=== PATIENT | male | born 1945 | race Caucasian/White ===

== ENCOUNTER 2016-08-07 07:48 | Outpatient (CLI) | payer MEDICARE | END 2016-08-07 07:49 | disposition home or self-care (01) | DX: I25.10 Atherosclerotic heart disease of native coronary artery without angina pectoris (principal); I10 Essential (primary) hypertension | CPT/HCPCS: 36415; 80053; G0103 ==

== ENCOUNTER 2016-10-01 09:13 | Day surgery (SDC) | payer MEDICARE ==
[2016-10-01] MEDS ORDERED: LACTATED RINGERS 1,000 ML IV ONE (09:36)
[2016-10-01] MEDS ORDERED: MIDAZOLAM 2 MG/2 ML VIAL IVP ONE (10:30)
[2016-10-01] MEDS ORDERED: fentaNYL 100 MCG/2 ML VIAL IVP ONE (10:30)
== END 2016-10-01 09:14 | disposition home or self-care (01) ==
PROC: 0DJD8ZZ Inspection of Lower Intestinal Tract, Via Natural or Artificial Opening Endoscopic (ICD-10-PCS; principal; 2016-10-01 10:15)
DX: Z12.11 Encounter for screening for malignant neoplasm of colon (principal); K64.4 Residual hemorrhoidal skin tags; K64.8 Other hemorrhoids; Z87.891 Personal history of nicotine dependence; Z88.5 Allergy status to narcotic agent; I25.10 Atherosclerotic heart disease of native coronary artery without angina pectoris; Z95.1 Presence of aortocoronary bypass graft; I25.2 Old myocardial infarction; I11.0 Hypertensive heart disease with heart failure; I50.9 Heart failure, unspecified; E78.5 Hyperlipidemia, unspecified; Z79.82 Long term (current) use of aspirin
CPT/HCPCS: G0121; J7120

== ENCOUNTER 2017-03-23 09:36 | Emergency (ER) | payer MEDICARE ==
[2017-03-23 09:58] VITALS: BP 123/71
--- NOTE | 2017-03-23 10:21 | XRAY Preliminary Report ---
Exam: XR Knee 3 View RT IMPRESSION: Moderate osteoarthritis. [facility] SITE ID: [id number]
--- NOTE | 2017-03-23 10:24 | XRAY Report ---
EXAM: RIGHT/LEFT KNEE RADIOGRAPHY EXAM DATE: 03/23/2017 10:14 AM. CLINICAL HISTORY: Right knee injury. COMPARISON: None. TECHNIQUE: 3 views. FINDINGS: Bones: Normal. No fractures or bone lesions. Joints: There is mild joint space narrowing in the lateral compartment. Moderate tricompartmental ost eophytes are seen. The patient is a mild knee effusion. Soft Tissues: Calcific enthesopathy is at the extensive mechanism. Arterial calcifications indicate a therosclerosis. IMPRESSION: Moderate osteoarthritis. [facility] Referring Provider Line: [phone] SITE ID: [id number]
--- NOTE | 2017-03-23 11:37 | ED Physician Documentation ---
PD HPI LOWER EXT INJURY - Stated complaint Stated Complaint: R KNEE PX - Chief complaint Chief Complaint: Ext Problem - History obtained from History obtained from: Patient, Family - History of Present Illness PD HPI LOW EXT INJURY LOCATION: Right, Knee Type of injury: Twist Where injury occurred: Home Timing - onset: Last night Timing - duration: Days (1) Timing - details: Abrupt onset, Still present Improved by: Rest, Immobilization Worsened by: Moving, Palpating Associated symptoms: Swelling. No: Weakness, Numbness, Tingling Contributing factors: No: Anticoagulated Similar symptoms before: Has not had sx before Recently seen: Not recently seen - Additional information Additional information: 71-year-old male was walking up the stairs had to step over the top of sleeping cat onto the stair above that and when he put his weight down on his leg he felt a pop and has had pain and a feeling of instability in the right knee since. Review of Systems Constitutional: denies: Fever Eyes: denies: Decreased vision Ears: denies: Ear pain Nose: denies: Congestion Throat: denies: Sore throat Cardiac: denies: Chest pain / pressure Respiratory: denies: Cough GI: denies: Vomiting : denies: Dysuria, Frequency Skin: denies: Rash Musculoskeletal: reports: Extremity pain, Joint pain, Pain with weight bearing. denies: Neck pain, Back pain, Extremity swelling, Joint swelling Neurologic: denies: Generalized weakness, Focal weakness, Numbness PD PAST MEDICAL HISTORY - Past Medical History Cardiovascular: Hypertension, High cholesterol Respiratory: None Endocrine/Autoimmune: None GI: None : None HEENT: None Psych: None Musculoskeletal: None Derm: None - Past Surgical History Cardiovascular: CABG HEENT: Other - Present Medications Home Medications: Ambulatory Orders Medication Instructions Recorded Confirmed Aspirin 0.5 tab PO DAILY 09/30/16 09/30/16 Atenolol/Chlorthalidone 1 each PO DAILY 09/30/16 10/01/16 [Atenolol-Chlorthal 50-25 Tb] Glucosamine Sulfate 500 mg PO DAILY 09/30/16 10/01/16 [place]-3/Dha/Epa/Fish Oil [Fish Oil 1 each PO DAILY 09/30/16 10/01/16 1,000 mg Softgel] Potassium Chloride [K-Dur] 20 meq PO DAILY 09/30/16 10/01/16 Rosuvastatin Calcium [Crestor] 10 mg PO DAILY 09/30/16 10/01/16 - Allergies Allergies/Adverse Reactions: Allergies Allergy/AdvReac Type Severity Reaction Status Date / Time codeine AdvReac Diaphoresis Verified 09/30/16 14:24 PD ED PE NORMAL - Vitals Vital signs reviewed: Yes (normal ) - General General: No acute distress, Well developed/nourished - HEENT HEENT: Atraumatic, PERRL - Respiratory Respiratory: No respiratory distress - Derm Derm: Normal color, Warm and dry, No rash - Extremities Extremities: No deformity, No edema, Other (There is mild pain along the lateral joint line of the right knee. There is no significant effusion. Knee rides through range of motion without much difficulty. There is opening of the lateral joint line to varus forces placed on the knee. This does not happen on the opposite knee.) - Neuro Neuro: No motor deficit, No sensory deficit - Psych Psych: Normal mood, Normal affect Results - Vitals Vitals: Vital Signs - 24 hr 03/23/17 09:57 Temperature 36.6 C Heart Rate 53 L Respiratory 16 Rate Blood Pressure 123/71 O2 Saturation 98 Oxygen O2 Source Room air - Rads (name of study) Right knee Radiology: Prelim report reviewed (Impression: Moderate osteoarthritis.), EMP read indepedently, See rad report Procedures - Splint (location) Right knee Splint applied by: Tech Type of splint: Other (Knee immobilizer) Other: Patient tolerated well, No complications, Neurovascular intact, Good alignment PD MEDICAL DECISION MAKING - ED course Complexity details: reviewed results, re-evaluated patient, considered differential, d/w patient, d/w family ED course: 71-year-old male with a right knee sprain appears to have torn right lateral collateral ligament. He is placed into a knee immobilizer and instructed to follow-up with orthopedics. Departure - Departure Disposition: 01 Home, Self Care Clinical Impression: Right knee sprain Qualifiers: Encounter type: initial encounter Involved ligament of knee: lateral collateral ligament Qualified Code(s): S83.421A - Sprain of lateral collateral ligament of right knee, initial encounter Condition: Stable Instructions: ED Sprain Knee Collateral Ligaments Follow-Up: Genaro Michael MD [Primary Care Provider] - [facility] [Provider Group]
== END 2017-03-23 11:52 | disposition home or self-care (01) ==
LOC: ED 09:36
DX: S83.421A Sprain of lateral collateral ligament of right knee, initial encounter (principal); X50.1XXA Overexertion from prolonged static or awkward postures, initial encounter; Y93.01 Activity, walking, marching and hiking; M17.11 Unilateral primary osteoarthritis, right knee; I10 Essential (primary) hypertension; E78.00 Pure hypercholesterolemia, unspecified; I25.10 Atherosclerotic heart disease of native coronary artery without angina pectoris; Z95.1 Presence of aortocoronary bypass graft; Z79.82 Long term (current) use of aspirin
CPT/HCPCS: 29530; 99283

== ENCOUNTER 2017-09-29 07:31 | Outpatient (CLI) | payer MEDICARE ==
[2017-09-29 08:14] LABS: ALBUMIN 4.2 g/dL (3.2-5.5); ALBUMIN/GLOBULIN RATIO 1.4 (1.0-2.2); ALKALINE PHOSPHATASE 58 IU/L (42-121); ALT ALANINE AMINOTRANSFERASE 19 IU/L (10-60); AST ASPARTATE AMINOTRANSFERASE 26 IU/L (10-42); BILIRUBIN,TOTAL 0.9 mg/dL (0.2-1.0); BUN - BLOOD UREA NITROGEN 24 mg/dL (6-20); CALCIUM 8.9 mg/dL (8.5-10.3); CARBON DIOXIDE - CO2 28 mmol/L (21-32); CHLORIDE 99 mmol/L (101-111); CHOL/HDL RATIO 4.9 (<5.0); CHOLESTEROL 152 mg/dL; CREATININE 1.1 mg/dL (0.6-1.2); GFR - MDRD 66 (>89); GLUCOSE 93 mg/dL (70-100); HDL CHOLESTEROL 31 mg/dL; LDL CHOLESTEROL,CALCULATED 47 mg/dL; LDL/HDL RATIO 1.5 (<3.6); SODIUM 135 mmol/L (135-145); TOTAL PROTEIN 7.1 g/dL (6.7-8.2); VLDL CHOLESTEROL 74 mg/dL
== END 2017-09-29 07:32 | disposition home or self-care (01) ==
LOC: LAB 07:31
PROVIDERS: ATTEND Internal Medicine
DX: I25.10 Atherosclerotic heart disease of native coronary artery without angina pectoris (principal); I10 Essential (primary) hypertension; E78.1 Pure hyperglyceridemia
CPT/HCPCS: 36415; 80053; 80061; G0103; 83721; 84153

== ENCOUNTER 2018-07-28 03:07 | Emergency (ER) | payer MEDICARE ==
[2018-07-28] MEDS ORDERED: ASPIRIN CHEW 81 MG TABLET PO STA (03:16)
[2018-07-28] MEDS ORDERED: NITROGLYCERIN SL 0.4 MG TABLET SL STA (03:25)
--- NOTE | 2018-07-28 03:27 | ED Physician Documentation ---
PD HPI CHEST PAIN - Stated complaint Stated Complaint: CHEST PAIN - Chief complaint Chief Complaint: Cardiac - Additional information Additional information: 72-year-old male presents the emergency department for evaluation of retrosternal chest pressure which radiated throughout his chest. The patient's symptoms lasted for roughly 2-1/2 hours and dissipated before arrival in the emergency department. Presently the patient has no active chest pain. There is no triggering factors and the pain resolved on its own. The patient does have a history of coronary artery disease and had a CABG 18 years ago. The pain that he experienced today is similar to what he experienced prior to the CABG. The patient currently does not follow with cardiology and is not had a stress test in over 10 years. No other associated symptoms. Review of Systems Constitutional: denies: Fever, Chills Eyes: denies: Discharge Ears: denies: Ear pain Nose: denies: Congestion Throat: denies: Sore throat Cardiac: reports: Chest pain / pressure Respiratory: denies: Cough GI: denies: Abdominal Pain : denies: Dysuria Skin: denies: Rash Musculoskeletal: denies: Neck pain Neurologic: denies: Generalized weakness Psychiatric: denies: Depressed Immunocompromised: denies: Chemotherapy PD PAST MEDICAL HISTORY - Past Medical History Cardiovascular: Hypertension, High cholesterol Respiratory: None Endocrine/Autoimmune: None GI: None : None HEENT: None Psych: None Musculoskeletal: None Derm: None - Past Surgical History Cardiovascular: CABG HEENT: Other - Present Medications Home Medications: Ambulatory Orders Medication Instructions Recorded Confirmed Aspirin 0.5 tab PO DAILY 09/30/16 09/30/16 Atenolol/Chlorthalidone 1 each PO DAILY 09/30/16 10/01/16 [Atenolol-Chlorthal 50-25 Tb] Glucosamine Sulfate 500 mg PO DAILY 09/30/16 10/01/16 [place]-3/Dha/Epa/Fish Oil [Fish Oil 1 each PO DAILY 09/30/16 10/01/16 1,000 mg Softgel] Potassium Chloride [K-Dur] 20 meq PO DAILY 09/30/16 10/01/16 Rosuvastatin Calcium [Crestor] 10 mg PO DAILY 09/30/16 10/01/16 - Allergies Allergies/Adverse Reactions: Allergies Allergy/AdvReac Type Severity Reaction Status Date / Time codeine AdvReac Diaphoresis Verified 07/28/18 03:18 - Social History Does the pt smoke?: No Smoking Status: Never smoker PD ED PE NORMAL - General General: Alert and oriented X 3, No acute distress - HEENT HEENT: Atraumatic, PERRL, EOMI, Ears normal - Neck Neck: Supple, no meningeal sign - Cardiac Cardiac: RRR, Strong equal pulses - Respiratory Respiratory: No respiratory distress, Clear bilaterally - Abdomen Abdomen: Soft, Non tender - Derm Derm: Normal color - Extremities Extremities: No deformity, No edema - Neuro Neuro: Alert and oriented X 3, Normal speech - Psych Psych: Normal affect Results - Vitals Vitals: Vital Signs - 24 hr 07/28/18 07/28/18 03:16 06:19 Temperature 36.5 C Heart Rate 55 L 40 L Respiratory 17 16 Rate Blood Pressure 196/97 H O2 Saturation 100 97 Oxygen O2 Source Room air - EKG (time done) 03:18 Rate: Rate (enter#) Rhythm: NSR Intervals: Normal CA, QRS normal Ischemia: Non specific changes Compare to prior EKG: Old EKG unavailable - Labs Labs: Laboratory Tests 07/28/18 07/28/18 07/28/18 03:20 03:20 03:20 WBC 12.2 H RBC 4.59 L Hgb 14.4 Hct 41.4 L MCV 90.2 MCH 31.4 H MCHC 34.9 RDW 12.7 Plt Count 180 MPV 8.8 Neut # (Auto) 8.5 H Lymph # (Auto) 2.2 [place] # (Auto) 1.1 H Eos # (Auto) 0.3 Baso # (Auto) 0.1 Absolute Nucleated RBC 0.00 Nucleated RBC % 0.0 D-Dimer Sodium 137 Potassium 3.4 L Chloride 104 Carbon Dioxide 24 Anion Gap 9.0 BUN 27 H Creatinine 1.2 Estimated GFR (MDRD) 60 L Glucose 106 H Calcium 8.9 Total Bilirubin 0.6 AST 23 ALT 18 Alkaline Phosphatase 67 Troponin I < 0.04 B-Natriuretic Peptide Total Protein 7.7 Albumin 4.2 Globulin 3.5 Albumin/Globulin Ratio 1.2 Lipase 51 07/28/18 07/28/18 03:20 03:20 WBC RBC Hgb Hct MCV MCH MCHC RDW Plt Count MPV Neut # (Auto) Lymph # (Auto) [place] # (Auto) Eos # (Auto) Baso # (Auto) Absolute Nucleated RBC Nucleated RBC % D-Dimer 223.6 Sodium Potassium Chloride Carbon Dioxide Anion Gap BUN Creatinine Estimated GFR (MDRD) Glucose Calcium Total Bilirubin AST ALT Alkaline Phosphatase Troponin I B-Natriuretic Peptide 204 H Total Protein Albumin Globulin Albumin/Globulin Ratio Lipase - Rads (name of study) CXR Radiology: Final report received, See rad report PD MEDICAL DECISION MAKING - ED course ED course: The patient is high risk, and the patient will require transfer for a chest pain rule out with provocative study. The patient is a [facility] patient and the [facility] transfer center was contacted and they will arrange for transfer for a chest pain rule out. The findings and plan were discussed the patient who understands and agrees to the plan. The patient has been chest pain-free since arriving the emergency department 7 AM the case was turned over to Dr. Olvera while the patient was pending transfer to a center that can perform a urgent provocative study Departure - Departure Disposition: 02 Transfer Acute Care Hosp Clinical Impression: Chest pain Qualifiers: Chest pain type: unspecified Qualified Code(s): R07.9 - Chest pain, unspecified CAD (coronary artery disease) Qualifiers: Coronary Disease-Associated Artery/Lesion type: [place] artery [place] vs. transplanted heart: apache heart Associated angina: with other forms of angina Qualified Code(s): I25.118 - Atherosclerotic heart disease of apache coronary artery with other forms of angina pectoris Condition: Fair
[2018-07-28 03:28] LABS: BASOPHILS # (AUTO) 0.1 10^3/uL (0.0-0.1); BASOPHILS % (AUTO) 0.5 %; EOSINOPHILS # (AUTO) 0.3 10^3/uL (0.0-0.7); EOSINOPHILS % (AUTO) 2.7 %; HGB - HEMOGLOBIN 14.4 g/dL (14.0-18.0); LYMPHOCYTES # (AUTO) 2.2 10^3/uL (1.5-3.5); LYMPHOCYTES % (AUTO) 17.8 %; MEAN CORPUSCULAR HEMOGLOBIN 31.4 pg (27.0-31.0); MEAN CORPUSCULAR HGB CONC 34.9 g/dL (32.0-36.0); MEAN CORPUSCULAR VOLUME 90.2 fL (80.0-94.0); MEAN PLATELET VOLUME 8.8 fL (7.4-11.4); MONOCYTES # (AUTO) 1.1 10^3/uL (0.0-1.0); MONOCYTES % (AUTO) 9.3 %; NEUTROPHILS # (AUTO) 8.5 10^3/uL (1.5-6.6); NEUTROPHILS % (AUTO) 69.7 %; PLT - PLATELET COUNT 180 10^3/uL (130-450); RED BLOOD COUNT 4.59 10^6/uL (4.70-6.10); RED CELL DISTRIBUTION WIDTH 12.7 % (12.0-15.0); WHITE BLOOD COUNT 12.2 x10^3/uL (4.8-10.8)
--- NOTE | 2018-07-28 03:39 | XRAY Report ---
Reason: cp Procedure Date: 07/28/2018 Accession Number: [id number] / [id number] Procedure: XR - Chest 2 View X-Ray CPT Code: 13842 FULL RESULT: EXAM: CHEST RADIOGRAPHY EXAM DATE: 07/28/2018 03:33 AM. CLINICAL HISTORY: Chest pain COMPARISON: None. TECHNIQUE: 2 views. FINDINGS: Lungs/Pleura: No focal opacities evident. No pleural effusion. No pneumothorax. Normal volumes. Mediastinum: Heart and mediastinal contours are unremarkable. Other: Previous heart surgery. IMPRESSION: No acute process seen in the chest. [facility]
[2018-07-28 03:40] LABS: ALBUMIN 4.2 g/dL (3.2-5.5); ALBUMIN/GLOBULIN RATIO 1.2 (1.0-2.2); BILIRUBIN,TOTAL 0.6 mg/dL (0.2-1.0); CALCIUM 8.9 mg/dL (8.5-10.3); CREATININE 1.2 mg/dL (0.6-1.2); TOTAL PROTEIN 7.7 g/dL (6.7-8.2)
[2018-07-28 08:49] VITALS: BP 170/84
== END 2018-07-28 08:55 | disposition short-term general hospital (02) ==
LOC: ED 03:07
DX: I25.118 Atherosclerotic heart disease of native coronary artery with other forms of angina pectoris (principal); R94.31 Abnormal electrocardiogram [ECG] [EKG]; Z95.1 Presence of aortocoronary bypass graft; I10 Essential (primary) hypertension; Z79.82 Long term (current) use of aspirin
CPT/HCPCS: 36415; 71046; 80053; 83690; 83880; 84484; 85025; 85379; 93005; 99284; A9270; 99285

== ENCOUNTER 2018-08-04 22:01 | Emergency (ER) | payer MEDICARE ==
--- NOTE | 2018-08-04 22:04 | ED Physician Documentation ---
PD HPI CHEST PAIN - Stated complaint Stated Complaint: RHB/CP - History obtained from History obtained from: Patient - History of Present Illness Timing - onset: Enter time (13:00), Today Timing - details: Abrupt onset Pain level max: 6 Pain level now: 2 Quality: Pain Location: Substernal, Left chest, Right chest Radiation: Other (does not radiate) Improved by: Nothing Worsened by: Other (no exacerbating factors) Associated symptoms: Palpitations. No: Shortness of air, Nausea, Vomiting Recently seen: Emergency Dept, Transferred - Additional information Additional information: presented to this ED 07/28/18 for chest pain and was transferred to [facility] where he underwent cardiac catheterization. Today at approximately 1 PM he had recurrence of chest pain shortly after finishing lunch. This was associated with rapid palpitations. the pain and palpitations improved but did not resolve, and both worsened after dinner tonight, approximately 6 PM. Review of Systems Constitutional: reports: Reviewed and negative Eyes: reports: Reviewed and negative Ears: reports: Reviewed and negative Nose: reports: Reviewed and negative Throat: reports: Reviewed and negative Cardiac: reports: Chest pain / pressure, Palpitations. denies: Pedal edema Respiratory: reports: Reviewed and negative GI: reports: Reviewed and negative : denies: Dysuria, Frequency Skin: reports: Reviewed and negative Musculoskeletal: reports: Reviewed and negative Neurologic: reports: Reviewed and negative PD PAST MEDICAL HISTORY - Past Medical History Cardiovascular: Hypertension, High cholesterol Respiratory: None Endocrine/Autoimmune: None GI: None : None HEENT: None Psych: None Musculoskeletal: None Derm: None - Past Surgical History Cardiovascular: CABG HEENT: Other - Present Medications Home Medications: Ambulatory Orders Medication Instructions Recorded Confirmed Aspirin 0.5 tab PO DAILY 09/30/16 08/04/18 [place]-3/Dha/Epa/Fish Oil [Fish Oil 1 each PO DAILY 09/30/16 08/04/18 1,000 mg Softgel] Potassium Chloride [K-Dur] 20 meq PO DAILY 09/30/16 08/04/18 Rosuvastatin Calcium [Crestor] 10 mg PO DAILY 09/30/16 08/04/18 Clopidogrel [Plavix] 1 tab PO DAILY 08/04/18 08/04/18 Metoprolol Tartrate [Lopressor] 1 tab PO DAILY 08/04/18 08/04/18 - Allergies Allergies/Adverse Reactions: Allergies Allergy/AdvReac Type Severity Reaction Status Date / Time codeine AdvReac Diaphoresis Verified 08/04/18 22:12 - Social History Does the pt smoke?: No Smoking Status: Never smoker PD ED PE NORMAL - Vitals Vital signs reviewed: Yes - General General: Alert and oriented X 3, No acute distress, Well developed/nourished - HEENT HEENT: Moist mucous membranes - Neck Neck: Supple, no meningeal sign - Cardiac Cardiac: No murmur, No gallop, No rub - Respiratory Respiratory: No respiratory distress, Clear bilaterally - Abdomen Abdomen: Soft, Non tender - Derm Derm: Normal color, Warm and dry - Extremities Extremities: No edema - Neuro Neuro: Alert and oriented X 3 PD ED PE EXPANDED - Cardiac Cardiac: Tachy, Regular Rhythm Results - Vitals Vitals: Vital Signs - 24 hr 08/04/18 08/04/18 08/04/18 22:05 22:07 23:54 Temperature 37.3 C Heart Rate 110 H 101 H 101 H Respiratory 16 16 17 Rate Blood Pressure 122/101 H 110/82 H 126/90 H O2 Saturation 95 94 93 08/05/18 08/05/18 00:43 02:12 Temperature Heart Rate 114 H 83 Respiratory 16 11 L Rate Blood Pressure 119/79 129/76 O2 Saturation 96 95 Oxygen O2 Source Room air - EKG (time done) No standard instances Rate: Rate (enter#) (113), Tachy Rhythm: Other (junctional) [place]: LAD, Anterior hemiblock QRS: LVH Ischemia: Normal ST segments, Q waves (V1, V2) Compare to prior EKG: Changed from prior EKG (previous EKG 2/5 sinus bradycardia) - Labs Labs: Laboratory Tests 08/04/18 08/04/18 08/04/18 22:20 22:20 22:20 WBC 14.7 H RBC 5.12 Hgb 15.8 Hct 46.1 MCV 90.1 MCH 31.0 MCHC 34.4 RDW 12.7 Plt Count 266 MPV 8.4 Neut # (Auto) 11.9 H Lymph # (Auto) 1.4 L [place] # (Auto) 1.2 H Eos # (Auto) 0.1 Baso # (Auto) 0.1 Absolute Nucleated RBC 0.02 Nucleated RBC % 0.1 D-Dimer Sodium 132 L Potassium 3.3 L Chloride 94 L Carbon Dioxide 25 Anion Gap 13.0 BUN 34 H Creatinine 1.3 H Estimated GFR (MDRD) 54 L Glucose 109 H Calcium 9.5 Total Bilirubin 0.9 AST 23 ALT 30 Alkaline Phosphatase 82 Troponin I 0.10 Total Protein 7.8 Albumin 4.3 Globulin 3.5 Albumin/Globulin Ratio 1.2 Lipase 74 H 08/04/18 22:20 WBC RBC Hgb Hct MCV MCH MCHC RDW Plt Count MPV Neut # (Auto) Lymph # (Auto) [place] # (Auto) Eos # (Auto) Baso # (Auto) Absolute Nucleated RBC Nucleated RBC % D-Dimer 287.2 H Sodium Potassium Chloride Carbon Dioxide Anion Gap BUN Creatinine Estimated GFR (MDRD) Glucose Calcium Total Bilirubin AST ALT Alkaline Phosphatase Troponin I Total Protein Albumin Globulin Albumin/Globulin Ratio Lipase PD MEDICAL DECISION MAKING - ED course Complexity details: reviewed old records, reviewed results, re-evaluated patient, considered differential, d/w patient ED course: After blood tests returned, patient continued to have narrow-complex tachycardia (100s-110s) on monitor without p waves s/o junctional tachycardia. I discussed the case with Dr. Parkinson (on-call cardiology at [facility]), who recommends transfer to [facility], hospitalist service and AM cardiology consult. I then d/w on-call for [facility], who subsequently called back to inform me that Dr. Hoang (hospitalist at [facility]) accepts patient for transfer. Departure - Departure Disposition: 02 Transfer Acute Care Hosp Clinical Impression: Junctional rhythm Chest pain Qualifiers: Chest pain type: unspecified Qualified Code(s): R07.9 - Chest pain, unspecified Condition: Stable Discharge Date/Time: 08/05/18 03:19
[2018-08-04 22:29] LABS: BASOPHILS # (AUTO) 0.1 10^3/uL (0.0-0.1); BASOPHILS % (AUTO) 0.4 %; EOSINOPHILS # (AUTO) 0.1 10^3/uL (0.0-0.7); EOSINOPHILS % (AUTO) 0.8 %; HGB - HEMOGLOBIN 15.8 g/dL (14.0-18.0); LYMPHOCYTES # (AUTO) 1.4 10^3/uL (1.5-3.5); LYMPHOCYTES % (AUTO) 9.4 %; MEAN CORPUSCULAR HGB CONC 34.4 g/dL (32.0-36.0); MEAN CORPUSCULAR VOLUME 90.1 fL (80.0-94.0); MEAN PLATELET VOLUME 8.4 fL (7.4-11.4); MONOCYTES # (AUTO) 1.2 10^3/uL (0.0-1.0); MONOCYTES % (AUTO) 8.3 %; NEUTROPHILS # (AUTO) 11.9 10^3/uL (1.5-6.6); NEUTROPHILS % (AUTO) 81.1 %; PLT - PLATELET COUNT 266 10^3/uL (130-450); RED BLOOD COUNT 5.12 10^6/uL (4.70-6.10); RED CELL DISTRIBUTION WIDTH 12.7 % (12.0-15.0); WHITE BLOOD COUNT 14.7 x10^3/uL (4.8-10.8)
[2018-08-04 22:46] LABS: ALBUMIN 4.3 g/dL (3.2-5.5); ALBUMIN/GLOBULIN RATIO 1.2 (1.0-2.2); BILIRUBIN,TOTAL 0.9 mg/dL (0.2-1.0); CALCIUM 9.5 mg/dL (8.5-10.3); CREATININE 1.3 mg/dL (0.6-1.2); TOTAL PROTEIN 7.8 g/dL (6.7-8.2)
[2018-08-05 02:13] VITALS: BP 129/76
== END 2018-08-05 03:19 | disposition short-term general hospital (02) ==
LOC: ED 22:01
DX: R07.9 Chest pain, unspecified (principal); I47.1 Supraventricular tachycardia; I10 Essential (primary) hypertension; Z95.1 Presence of aortocoronary bypass graft
CPT/HCPCS: 36415; 80053; 83690; 84484; 85025; 85379; 93005; 99284; 99285

== ENCOUNTER 2018-08-26 11:34 | Emergency (ER) | payer MEDICARE ==
[2018-08-26] MEDS ORDERED: predniSONE 20 MG TABLET PO STA (12:36)
--- NOTE | 2018-08-26 12:37 | ED Physician Documentation ---
PD HPI SKIN - Stated complaint Stated Complaint: POSS ALLERGIC REACTION - Chief complaint Chief Complaint: Wound - History obtained from History obtained from: Patient - History of Present Illness Timing - onset: Yesterday (73-year-old gentleman who had an anginal scare last month. Sounds like he had a clean cath.He was sent home on a lot of new medications, Friday he was put on prednisone for some thumb pain. Subsequent to that stopping he developed a body wide itchy rash with a little bit of thick tongue. It is mostly better now but a little persistent.) Review of Systems Constitutional: reports: Reviewed and negative Cardiac: reports: Reviewed and negative Respiratory: reports: Reviewed and negative PD PAST MEDICAL HISTORY - Past Medical History Cardiovascular: Hypertension, High cholesterol Respiratory: None Endocrine/Autoimmune: None GI: None : None HEENT: None Psych: None Musculoskeletal: None Derm: None - Past Surgical History Past Surgical History: Yes Cardiovascular: CABG HEENT: Other - Present Medications Home Medications: Ambulatory Orders Medication Instructions Recorded Confirmed Aspirin 0.5 tab PO DAILY 09/30/16 08/26/18 [place]-3/Dha/Epa/Fish Oil [Fish Oil 1 each PO DAILY 09/30/16 08/26/18 1,000 mg Softgel] Potassium Chloride [K-Dur] 20 meq PO DAILY 09/30/16 08/26/18 Rosuvastatin Calcium [Crestor] 10 mg PO DAILY 09/30/16 08/26/18 Clopidogrel [Plavix] 1 tab PO DAILY 08/04/18 08/26/18 Metoprolol Tartrate [Lopressor] 1 tab PO DAILY 08/04/18 08/26/18 Amlodipine Besylate [Norvasc] 10 mg PO 08/26/18 Chlorthalidone 25 mg PO DAILY 08/26/18 08/26/18 Isosorbide Mononitrate ER [Imdur] 30 mg PO DAILY 08/26/18 08/26/18 predniSONE [Deltasone] 40 mg PO DAILY 5 Days tablet 08/26/18 - Allergies Allergies/Adverse Reactions: Allergies Allergy/AdvReac Type Severity Reaction Status Date / Time hydralazine Allergy Itching Verified 08/26/18 11:49 quinapril [From Accupril] Allergy Itching Verified 08/26/18 11:48 codeine AdvReac Diaphoresis Verified 08/26/18 11:48 - Social History Does the pt smoke?: No Smoking Status: Never smoker Does the pt drink ETOH?: Yes Does the pt have substance abuse?: No - Immunizations Immunizations are current?: Yes - POLST Patient has POLST: No PD ED PE NORMAL - Vitals Vital signs reviewed: Yes - HEENT HEENT: Pharynx benign - Respiratory Respiratory: No respiratory distress, Clear bilaterally - Abdomen Abdomen: Non tender - Derm Derm: Other (Mild hives left lower quadrant abdominal wall and right axilla) - Neuro Neuro: Alert and oriented X 3, Normal speech Results - Vitals Vitals: Vital Signs - 24 hr 08/26/18 11:43 Temperature 35.6 C L Heart Rate 78 Respiratory 14 Rate Blood Pressure 148/100 H O2 Saturation 96 Oxygen O2 Source Room air PD MEDICAL DECISION MAKING - ED course ED course: We went through all of his medications with an eye to what might not be necessary, and what is new. He is going to stop vitamin B12, red yeast rice and fish oil. Of the other new medications culprits might be Plavix or chlorthalidone. He will trial some prednisone and if the rash comes back he will discussed the importance of these with his check cashier. Departure - Departure Disposition: 01 Home, Self Care Clinical Impression: Hives Condition: Good Record reviewed to determine appropriate education?: Yes Instructions: Urticaria Prescriptions: predniSONE [Deltasone] 40 mg PO DAILY 5 Days tablet Comments: As discussed for now I would stop the red yeast rice, fish oil, and vitamin B12. If the rash comes back after prednisone discuss your medications with your check cashier, other culprits might include the chlorthalidone or Plavix.
[2018-08-26 12:50] VITALS: BP 164/82
== END 2018-08-26 12:45 | disposition home or self-care (01) ==
LOC: ED 11:34
DX: L50.9 Urticaria, unspecified (principal); I10 Essential (primary) hypertension
CPT/HCPCS: 99283

== ENCOUNTER 2018-10-05 11:02 | Outpatient (CLI) | payer MEDICARE | END 2018-10-05 11:03 | disposition home or self-care (01) | LOC: SC 11:02 | PROVIDERS: ATTEND Internal Medicine Pulmonary Disease | DX: G47.10 Hypersomnia, unspecified (principal); R41.89 Other symptoms and signs involving cognitive functions and awareness; G47.8 Other sleep disorders; R06.83 Snoring | CPT/HCPCS: 99203; G0463; 99212 ==

== ENCOUNTER 2018-10-19 20:54 | Outpatient (CLI) | payer MEDICARE | END 2018-10-19 20:55 | disposition home or self-care (01) | LOC: SC 20:54 | PROVIDERS: ATTEND Internal Medicine Pulmonary Disease | DX: G47.33 Obstructive sleep apnea (adult) (pediatric) (principal); I49.9 Cardiac arrhythmia, unspecified | CPT/HCPCS: 95810 ==

== ENCOUNTER 2018-11-04 08:52 | Outpatient (CLI) | payer MEDICARE | END 2018-11-04 08:53 | disposition home or self-care (01) | LOC: SC 08:52 | PROVIDERS: ATTEND Nurse Practitioner Family | DX: G47.33 Obstructive sleep apnea (adult) (pediatric) (principal); I49.8 Other specified cardiac arrhythmias | CPT/HCPCS: 99214; G0463; 99212 ==

== ENCOUNTER 2019-02-01 07:00 | Outpatient (CLI) | payer MEDICARE ==
[2019-02-01 07:22] LABS: BASOPHILS % (AUTO) 0.4 %; EOSINOPHILS # (AUTO) 0.4 10^3/uL (0.0-0.7); EOSINOPHILS % (AUTO) 5.3 %; HGB - HEMOGLOBIN 14.1 g/dL (14.0-18.0); LYMPHOCYTES # (AUTO) 1.6 10^3/uL (1.5-3.5); LYMPHOCYTES % (AUTO) 21.1 %; MEAN CORPUSCULAR HEMOGLOBIN 31.1 pg (27.0-31.0); MEAN CORPUSCULAR HGB CONC 34.9 g/dL (32.0-36.0); MEAN CORPUSCULAR VOLUME 89.2 fL (80.0-94.0); MEAN PLATELET VOLUME 10.1 fL (7.4-11.4); MONOCYTES # (AUTO) 0.9 10^3/uL (0.0-1.0); MONOCYTES % (AUTO) 11.3 %; NEUTROPHILS # (AUTO) 4.7 10^3/uL (1.5-6.6); NEUTROPHILS % (AUTO) 61.6 %; PLT - PLATELET COUNT 194 10^3/uL (130-450); RED BLOOD COUNT 4.53 10^6/uL (4.70-6.10); RED CELL DISTRIBUTION WIDTH 12.7 % (12.0-15.0); WHITE BLOOD COUNT 7.5 x10^3/uL (4.8-10.8)
[2019-02-01 08:11] LABS: ALBUMIN 4.5 g/dL (3.2-5.5); ALBUMIN/GLOBULIN RATIO 1.6 (1.0-2.2); ALKALINE PHOSPHATASE 64 IU/L (42-121); ALT ALANINE AMINOTRANSFERASE 20 IU/L (10-60); AST ASPARTATE AMINOTRANSFERASE 25 IU/L (10-42); BILIRUBIN,TOTAL 0.8 mg/dL (0.2-1.0); BUN - BLOOD UREA NITROGEN 39 mg/dL (6-20); CALCIUM 9.5 mg/dL (8.5-10.3); CARBON DIOXIDE - CO2 24 mmol/L (21-32); CHLORIDE 104 mmol/L (101-111); CHOL/HDL RATIO 2.9 (<5.0); CHOLESTEROL 117 mg/dL; CREATININE 1.2 mg/dL (0.6-1.2); GFR - MDRD 60 (>89); GLUCOSE 98 mg/dL (70-100); HDL CHOLESTEROL 41 mg/dL; LDL CHOLESTEROL,CALCULATED 57 mg/dL; LDL CHOLESTEROL,DIRECT 55 mg/dL; LDL/HDL RATIO 1.4 (<3.6); SODIUM 139 mmol/L (135-145); TOTAL PROTEIN 7.4 g/dL (6.7-8.2); VLDL CHOLESTEROL 19 mg/dL
== END 2019-02-01 07:01 | disposition home or self-care (01) ==
LOC: LAB 07:00
PROVIDERS: ATTEND Internal Medicine Cardiovascular Disease
DX: E78.1 Pure hyperglyceridemia (principal); I10 Essential (primary) hypertension; I25.10 Atherosclerotic heart disease of native coronary artery without angina pectoris
CPT/HCPCS: 36415; 80053; 80061; 83721; 85025

== ENCOUNTER 2019-04-07 07:44 | Outpatient (CLI) | payer MEDICARE ==
[2019-04-07 08:23] LABS: CALCIUM 9.4 mg/dL (8.5-10.3); CREATININE 1.4 mg/dL (0.6-1.2)
== END 2019-04-07 07:45 | disposition home or self-care (01) ==
LOC: LAB 07:44
PROVIDERS: ATTEND Internal Medicine Cardiovascular Disease
DX: I10 Essential (primary) hypertension (principal)
CPT/HCPCS: 36415; 80048

== ENCOUNTER 2020-02-09 23:41 | Outpatient (CLI) | payer MEDICARE | END 2020-02-09 23:42 | disposition critical access hospital (66) | LOC: EMS 23:41 | PROVIDERS: ATTEND Surgery | DX: R10.10 Upper abdominal pain, unspecified (principal) | CPT/HCPCS: A0425; A0429 ==

== ENCOUNTER 2020-09-07 08:14 | Outpatient (CLI) | payer MEDICARE ==
[2020-09-07 08:31] LABS: BASOPHILS # (AUTO) 0.1 10^3/uL (0.0-0.1); BASOPHILS % (AUTO) 0.8 %; EOSINOPHILS # (AUTO) 0.4 10^3/uL (0.0-0.7); EOSINOPHILS % (AUTO) 4.9 %; HCT - HEMATOCRIT 42.6 % (42.0-52.0); HGB - HEMOGLOBIN 14.5 g/dL (14.0-18.0); LYMPHOCYTES # (AUTO) 2.4 10^3/uL (1.5-3.5); LYMPHOCYTES % (AUTO) 27.3 %; MEAN CORPUSCULAR HEMOGLOBIN 30.9 pg (27.0-31.0); MEAN CORPUSCULAR VOLUME 90.8 fL (80.0-94.0); MEAN PLATELET VOLUME 10.1 fL (7.4-11.4); MONOCYTES # (AUTO) 0.9 10^3/uL (0.0-1.0); MONOCYTES % (AUTO) 9.9 %; NEUTROPHILS # (AUTO) 4.9 10^3/uL (1.5-6.6); NEUTROPHILS % (AUTO) 56.9 %; PLT - PLATELET COUNT 222 10^3/uL (130-450); RED BLOOD COUNT 4.69 10^6/uL (4.70-6.10); RED CELL DISTRIBUTION WIDTH 12.5 % (12.0-15.0); WHITE BLOOD COUNT 8.6 x10^3/uL (4.8-10.8)
[2020-09-07 08:49] LABS: BUN - BLOOD UREA NITROGEN 34 mg/dL (6-20); CALCIUM 9.5 mg/dL (8.5-10.3); CARBON DIOXIDE - CO2 25 mmol/L (21-32); CHLORIDE 100 mmol/L (101-111); CHOLESTEROL 131 mg/dL; CREATININE 1.4 mg/dL (0.6-1.2); GFR - MDRD 50 (>89); GLUCOSE 95 mg/dL (70-100); HDL CHOLESTEROL 43 mg/dL; LDL CHOLESTEROL,CALCULATED 53 mg/dL; LDL/HDL RATIO 1.2 (<3.6); POTASSIUM 3.6 mmol/L (3.5-5.0); SODIUM 137 mmol/L (135-145); TRIGLYCERIDES 173 mg/dL; VLDL CHOLESTEROL 35 mg/dL
== END 2020-09-07 08:15 | disposition home or self-care (01) ==
LOC: LAB 08:14
PROVIDERS: ATTEND Internal Medicine Cardiovascular Disease
DX: I25.10 Atherosclerotic heart disease of native coronary artery without angina pectoris (principal); I10 Essential (primary) hypertension
CPT/HCPCS: 36415; 80048; 80061; 83721; 85025

== ENCOUNTER 2021-11-02 08:00 | Outpatient (CLI) | payer MEDICARE ==
[2021-11-02 08:16] LABS: BASOPHILS % (AUTO) 0.2 %; EOSINOPHILS # (AUTO) 0.1 10^3/uL (0.0-0.7); EOSINOPHILS % (AUTO) 0.7 %; HCT - HEMATOCRIT 43.5 % (42.0-52.0); HGB - HEMOGLOBIN 14.6 g/dL (14.0-18.0); LYMPHOCYTES # (AUTO) 2.2 10^3/uL (1.5-3.5); LYMPHOCYTES % (AUTO) 15.6 %; MEAN CORPUSCULAR HEMOGLOBIN 32.3 pg (27.0-31.0); MEAN CORPUSCULAR HGB CONC 33.6 g/dL (32.0-36.0); MEAN CORPUSCULAR VOLUME 96.2 fL (80.0-94.0); MEAN PLATELET VOLUME 9.6 fL (7.4-11.4); MONOCYTES # (AUTO) 1.1 10^3/uL (0.0-1.0); MONOCYTES % (AUTO) 7.8 %; NEUTROPHILS # (AUTO) 10.5 10^3/uL (1.5-6.6); NEUTROPHILS % (AUTO) 75.2 %; PLT - PLATELET COUNT 197 10^3/uL (130-450); RED BLOOD COUNT 4.52 10^6/uL (4.70-6.10); RED CELL DISTRIBUTION WIDTH 12.6 % (12.0-15.0); WHITE BLOOD COUNT 13.9 x10^3/uL (4.8-10.8)
[2021-11-02 08:34] LABS: BUN - BLOOD UREA NITROGEN 26 mg/dL (6-20); CALCIUM 9.1 mg/dL (8.5-10.3); CARBON DIOXIDE - CO2 27 mmol/L (21-32); CHLORIDE 101 mmol/L (101-111); CHOL/HDL RATIO 2.4 (<5.0); CHOLESTEROL 166 mg/dL; CREATININE 1.3 mg/dL (0.6-1.2); GFR - MDRD 54 (>89); GLUCOSE 82 mg/dL (70-100); HDL CHOLESTEROL 70 mg/dL; LDL CHOLESTEROL,CALCULATED 59 mg/dL; LDL/HDL RATIO 0.8 (<3.6); POTASSIUM 3.4 mmol/L (3.5-5.0); SODIUM 139 mmol/L (135-145); TRIGLYCERIDES 185 mg/dL; VLDL CHOLESTEROL 37 mg/dL
== END 2021-11-02 08:01 | disposition home or self-care (01) ==
LOC: LAB 08:00
PROVIDERS: ATTEND Internal Medicine Cardiovascular Disease
DX: I10 Essential (primary) hypertension (principal); E78.5 Hyperlipidemia, unspecified
CPT/HCPCS: 36415; 80048; 80061; 83721; 85025

== ENCOUNTER 2022-04-09 04:37 | Emergency (ER) | payer MEDICARE ==
--- OUTSIDE RECORDS SUMMARY | 2022-04-09 05:07 | EXTERNAL MEDICAL SUMMARY RPT | Continuity of Care Document ---
:1945 Author Organization [facility] Address [address] [place] [address] Phone Allergies No information. Encounters No information. Functional Status No information. Immunizations No information. Medications No information. Problems No information. Procedures No information. Results/Labs test date author facility value unit interpret ation Result panel 1 (unknown) (no (unknown) (unknown) (no value) (units (unk nown) date) unknown) (unknown) (no (unknown) (unknown) [place] [address] (unit s (unknown) date) unknown) (unknown) (no (unknown) (unknown) Constricted throat. (unit s (unknown) date) unknown) (unknown) (no (unknown) (unknown) Draft (units (unkno wn) date) unknown) (unknown) (no (unknown) (unknown) [facility] (units (unknown[facility] date[facility] unknown) (unknown) (no (unknown) (unknown) Internal Medicine (units (unknown) date) Office Visit unknown) (unknown) (no (unknown) (unknown) chills (units (unkno wn) date) unknown) (unknown) (no (unknown) (unknown) flushing (units (unkno wn) date) unknown) (unknown) (no (unknown) (unknown) (no value) (units (unk nown) date) unknown) (unknown) (no (unknown) (unknown) [id number] (units (unkno wn) date) unknown) (unknown) (no (unknown) (unknown) 01/29/22 (units (unkno wn) date) unknown) (unknown) (no (unknown) (unknown) 11:18) (units (unkno wn) date) unknown) (unknown) (no (unknown) (unknown) Age/Sex: 76 / M Date (uni ts (unknown) date) of Service: unknown) (unknown) (no (unknown) (unknown) Allergies (units (unkn own) date) unknown) (unknown) (no (unknown) (unknown) Attending Dr: Genaro Groves (uni ts (unknown) date) Fernanda MARSHALL unknown) (unknown) (no (unknown) (unknown) Coronary artery (units (unknown) date) disease unknown) (unknown) (no (unknown) (unknown) : 1945 (units (unknown) date) Acct:[id number] unknown) (unknown) (no (unknown) (unknown) Dept at (units (unkno wn) date) . unknown) (unknown) (no (unknown) (unknown) Documented By: (units (unknown) date) Genaro Michael MD unknown) 01/29/22 1132 (unknown) (no (unknown) (unknown) Essential (units (unkn own) date) hypertension unknown) (unknown) (no (unknown) (unknown) Hypertriglyceridemia (uni ts (unknown) date) unknown) (unknown) (no (unknown) (unknown) Intake (units (unkno wn) date) unknown) (unknown) (no (unknown) (unknown) Intake Note: (units (u nknown) date) unknown) (unknown) (no (unknown) (unknown) Intake performed by: (uni ts (unknown) date) Harika Good unknown) (unknown) (no (unknown) (unknown) Intake- Clincial (units (unknown) date) Staff unknown) (unknown) (no (unknown) (unknown) Left hydrocele (units (unknown) date) unknown) (unknown) (no (unknown) (unknown) Loc: [facility] (units (unkno wn) date) unknown) (unknown) (no (unknown) (unknown) Male circumcision (units (unknown) date) unknown) (unknown) (no (unknown) (unknown) Medical History (units (unknown) date) (Updated 11/15/21 @ unknown) 08:51 by Dylan Ayala MD) (unknown) (no (unknown) (unknown) PFSH (units (unkno wn) date) unknown) (unknown) (no (unknown) (unknown) Patient: (units (unkno wn) date) Evgeny Moore MR#: unknown) M0 (unknown) (no (unknown) (unknown) Prednisone decreased (uni ts (unknown) date) at last visit. unknown) (unknown) (no (unknown) (unknown) Reason For Visit (units (unknown) date) unknown) (unknown) (no (unknown) (unknown) Recheck PMR (units (un known) date) unknown) (unknown) (no (unknown) (unknown) Review/Discuss. 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 unknown) (unknown) (no (unknown) (unknown) Surgical History (units (unknown) date) (Reviewed 11/15/21 @ unknown) 08:39 by Dylan Ayala MD) (unknown) (no (unknown) (unknown) This note may have (units (unknown) date) been all or partially unknown) generated using voice recognition (unknown) (no (unknown) (unknown) Tobacco + Substance (unit s (unknown) date) Use unknown) (unknown) (no (unknown) (unknown) Tobacco Status (units (unknown) date) unknown) (unknown) (no (unknown) (unknown) Visit Reasons: (units (unknown) date) Recheck PMR 08 unknown) (unknown) (no (unknown) (unknown) codeine [CODEINE] (units (unknown) date) Allergy (Mild, unknown) Verified 11/30/21 11:18) (unknown) (no (unknown) (unknown) have occurred. If (units (unknown) date) there are any unknown) questions, please contact the Medical Records (unknown) (no (unknown) (unknown) hydralazine Adverse (unit s (unknown) date) Reaction (Severe, unknown) Verified 11/30/21 11:18) (unknown) (no (unknown) (unknown) marital status: (units (unknown) date) unknown) (unknown) (no (unknown) (unknown) may occur. Occasional (un its (unknown) date) wrong-word or unknown) 'sound-alike' substitutions may have (unknown) (no (unknown) (unknown) minoxidil Adverse (units (unknown) date) Reaction (Severe, unknown) Verified 11/30/21 11:18) (unknown) (no (unknown) (unknown) number of children: 2 (un its (unknown) date) unknown) (unknown) (no (unknown) (unknown) occurred due to the (unit s (unknown) date) inherent limitations unknown) of voice recognition software. Please (unknown) (no (unknown) (unknown) quinapril [From (units (unknown) date) Accupril] Adverse unknown) Reaction (Intermediate, Verified 11/30/21 (unknown) (no (unknown) (unknown) read the note (units ( unknown) date) carefully and unknown) recognize, using context, where these substitutions (unknown) (no (unknown) (unknown) software. Although (units (unknown) date) every effort is made unknown) to edit content, spareribs trimmer errors Result panel 2 (unknown) (no (unknown) (unknown) (no value) (units (unk nown) date) unknown) (unknown) (no (unknown) (unknown) [place] [address] (unit s (unknown) date) unknown) (unknown) (no (unknown) (unknown) Constricted throat. (unit s (unknown) date) unknown) (unknown) (no (unknown) (unknown) Draft (units (unkno wn) date) unknown) (unknown) (no (unknown) (unknown) [facility] ([facility] date[facility] unknown) (unknown) (no (unknown) (unknown) Internal Medicine (units (unknown) date) Office Visit unknown) (unknown) (no (unknown) (unknown) chills (units (unkno wn) date) unknown) (unknown) (no (unknown) (unknown) flushing (units (unkno wn) date) unknown) (unknown) (no (unknown) (unknown) (no value) (units (unk nown) date) unknown) (unknown) (no (unknown) (unknown) [id number] (units (unkno wn) date) unknown) (unknown) (no (unknown) (unknown) 01/29/22 (units (unkno wn) date) unknown) (unknown) (no (unknown) (unknown) 01/29/22] (units (unkn own) date) unknown) (unknown) (no (unknown) (unknown) 11:37) (units (unkno wn) date) unknown) (unknown) (no (unknown) (unknown) 2-3 weeks left to go (uni ts (unknown) date) but states that he can unknown ) sure feel a difference. (unknown) (no (unknown) (unknown) A little edema around (un its (unknown) date) ankles. unknown) (unknown) (no (unknown) (unknown) Age/Sex: 76 / M Date (uni ts (unknown) date) of Service: unknown) (unknown) (no (unknown) (unknown) Allergies (units (unkn own) date) unknown) (unknown) (no (unknown) (unknown) Attending Dr: Genaro Groves (uni ts (unknown) date) Fernanda MARSHALL unknown) (unknown) (no (unknown) (unknown) Coronary artery (units (unknown) date) disease unknown) (unknown) (no (unknown) (unknown) : 1945 (units (unknown) date) Acct:[id number] unknown) (unknown) (no (unknown) (unknown) Dept at (units (unkno wn) date) . unknown) (unknown) (no (unknown) (unknown) Discuss Neuropathy (units (unknown) date) unknown) (unknown) (no (unknown) (unknown) Documented By: (units (unknown) date) Genaro Michael MD unknown) 01/29/22 1132 (unknown) (no (unknown) (unknown) Essential (units (unkn own) date) hypertension unknown) (unknown) (no (unknown) (unknown) Hypertriglyceridemia (uni ts (unknown) date) unknown) (unknown) (no (unknown) (unknown) Intake (units (unkno wn) date) unknown) (unknown) (no (unknown) (unknown) Intake Note: (units (u nknown) date) unknown) (unknown) (no (unknown) (unknown) Intake performed by: (uni ts (unknown) date) Harika Good unknown) (unknown) (no (unknown) (unknown) Intake- Clincial (units (unknown) date) Staff unknown) (unknown) (no (unknown) (unknown) Left hydrocele (units (unknown) date) unknown) (unknown) (no (unknown) (unknown) Legs feel like (units (unknown) date) they're 10 lbs each unknown) day. (unknown) (no (unknown) (unknown) Loc: [facility] (units (unkno wn) date) unknown) (unknown) (no (unknown) (unknown) Male circumcision (units (unknown) date) unknown) (unknown) (no (unknown) (unknown) Medical History (units (unknown) date) (Updated 11/15/21 @ unknown) 08:51 by Dylan Ayala MD) (unknown) (no (unknown) (unknown) Medications (units (un known) date) unknown) (unknown) (no (unknown) (unknown) PFSH (units (unkno wn) date) unknown) (unknown) (no (unknown) (unknown) Patient at alternate (uni ts (unknown) date) 5 and 10s mg of unknown) Prednisone. (unknown) (no (unknown) (unknown) Patient: (units (unkno wn) date) Evgeny Moore MR#: unknown) M0 (unknown) (no (unknown) (unknown) Prednisone decreased (uni ts (unknown) date) at last visit. unknown) (unknown) (no (unknown) (unknown) Reason For Visit (units (unknown) date) unknown) (unknown) (no (unknown) (unknown) Recheck PMR (units (un known) date) unknown) (unknown) (no (unknown) (unknown) Review/Discuss. (units (unknown) date) unknown) (unknown) (no (unknown) (unknown) Signed By: (units (unk nown) date) unknown) (unknown) (no (unknown) (unknown) Smoking Status: (units (unknown) date) Former smoker unknown) (unknown) (no (unknown) (unknown) Social History (units (unknown) date) unknown) (unknown) (no (unknown) (unknown) Spreading and getting (un its (unknown) date) farther up body. 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 unknown) (unknown) (no (unknown) (unknown) Surgical History (units (unknown) date) (Reviewed 11/15/21 @ unknown) 08:39 by Dylan Ayala MD) (unknown) (no (unknown) (unknown) This note may have (units (unknown) date) been all or partially unknown) generated using voice recognition (unknown) (no (unknown) (unknown) Tobacco + Substance (unit s (unknown) date) Use unknown) (unknown) (no (unknown) (unknown) Tobacco Status (units (unknown) date) unknown) (unknown) (no (unknown) (unknown) Visit Reasons: (units (unknown) date) Recheck PMR 08 unknown) (unknown) (no (unknown) (unknown) [History Confirmed (units (unknown) date) 01/29/22] unknown) (unknown) (no (unknown) (unknown) amlodipine 10 mg (units (unknown) date) tablet 5 mg PO DAILY unknown) 04/06/21 [History Confirmed 01/29/22] (unknown) (no (unknown) (unknown) aspirin 81 mg (units ( unknown) date) tablet,delayed release unknown ) 81 mg PO DAILY 08/21/18 [History Confirmed (unknown) (no (unknown) (unknown) chlorthalidone 25 mg (uni ts (unknown) date) tablet 6.25 mg PO unknown) DAILY 11/30/21 [History Confirmed (unknown) (no (unknown) (unknown) codeine [CODEINE] (units (unknown) date) Allergy (Mild, unknown) Verified 01/29/22 11:37) (unknown) (no (unknown) (unknown) have occurred. If (units (unknown) date) there are any unknown) questions, please contact the Medical Records (unknown) (no (unknown) (unknown) hydralazine Adverse (unit s (unknown) date) Reaction (Severe, unknown) Verified 01/29/22 11:37) (unknown) (no (unknown) (unknown) losartan 100 mg (units (unknown) date) tablet 50 mg PO DAILY unknown) 11/30/21 [History Confirmed 01/29/22] (unknown) (no (unknown) (unknown) marital status: (units (unknown) date) unknown) (unknown) (no (unknown) (unknown) may occur. Occasional (un its (unknown) date) wrong-word or unknown) 'sound-alike' substitutions may have (unknown) (no (unknown) (unknown) metoprolol tartrate (unit s (unknown) date) 25 mg tablet 25 mg PO unknown) BID 08/04/18 [History Confirmed (unknown) (no (unknown) (unknown) minoxidil Adverse (units (unknown) date) Reaction (Severe, unknown) Verified 01/29/22 11:37) (unknown) (no (unknown) (unknown) number of children: 2 (un its (unknown) date) unknown) (unknown) (no (unknown) (unknown) occurred due to the (unit s (unknown) date) inherent limitations unknown) of voice recognition software. Please (unknown) (no (unknown) (unknown) prednisone 20 mg (units (unknown) date) tablet 20 mg PO DAILY unknown) #30 tabs 11/30/21 [Rx Confirmed 01/29/22] (unknown) (no (unknown) (unknown) prednisone 5 mg (units (unknown) date) tablet 5 mg PO DAILY unknown) #90 tabs 11/30/21 [Rx Confirmed 01/29/22] (unknown) (no (unknown) (unknown) quinapril [From (units (unknown) date) Accupril] Adverse unknown) Reaction (Intermediate, Verified 01/29/22 (unknown) (no (unknown) (unknown) read the note (units ( unknown) date) carefully and unknown) recognize, using context, where these substitutions (unknown) (no (unknown) (unknown) rosuvastatin 20 mg (units (unknown) date) tablet 20 mg PO DAILY unknown) 09/11/20 [History Confirmed 01/29/22] (unknown) (no (unknown) (unknown) software. Although (units (unknown) date) every effort is made unknown) to edit content, spareribs trimmer errors (unknown) (no (unknown) (unknown) triamcinolone (units ( unknown) date) acetonide 0.1 % unknown) topical cream 1 applic topical BID PRN 11/30/21 Result panel 3 (unknown) (no (unknown) (unknown) (no value) (units (unk nown) date) unknown) (unknown) (no (unknown) (unknown) (no value) (units (unk nown) date) unknown) (unknown) (no (unknown) (unknown) 01/29/22 (units (unkno wn) date) unknown) (unknown) (no (unknown) (unknown) 11:40 (units (unkno wn) date) unknown) (unknown) (no (unknown) (unknown) [employer] [id number] (unit s (unknown) date) unknown) (unknown) (no (unknown) (unknown) Constricted throat. (unit s (unknown) date) unknown) (unknown) (no (unknown) (unknown) Draft (units (unkno wn) date) unknown) (unknown) (no (unknown) (unknown) [facility] ([facility] ([facility] date[facility] unknown) (unknown) (no (unknown) (unknown) Internal Medicine (units (unknown) date) Office Visit unknown) (unknown) (no (unknown) (unknown) chills (units (unkno wn) date) unknown) (unknown) (no (unknown) (unknown) flushing (units (unkno wn) date) unknown) (unknown) (no (unknown) (unknown) (no value) (units (unk nown) date) unknown) (unknown) (no (unknown) (unknown) [id number] (units (unkno wn) date) unknown) (unknown) (no (unknown) (unknown) 01/29/22 (units (unkno wn) date) unknown) (unknown) (no (unknown) (unknown) 01/29/22] (units (unkn own) date) unknown) (unknown) (no (unknown) (unknown) 11:37) (units (unkno wn) date) unknown) (unknown) (no (unknown) (unknown) 2-3 weeks left to go (uni ts (unknown) date) but states that he can unknown ) sure feel a difference. (unknown) (no (unknown) (unknown) A little edema around (un its (unknown) date) ankles. unknown) (unknown) (no (unknown) (unknown) Age/Sex: 76 / M Date (uni ts (unknown) date) of Service: unknown) (unknown) (no (unknown) (unknown) Allergies (units (unkn own) date) unknown) (unknown) (no (unknown) (unknown) Attending Dr: Genaro Groves (uni ts (unknown) date) Fernanda MARSHALL unknown) (unknown) (no (unknown) (unknown) BMI 24.4 (units (unkn own) date) unknown) (unknown) (no (unknown) (unknown) BP 142/76 H (units (un known) date) unknown) (unknown) (no (unknown) (unknown) Blood Pressure (units (unknown) date) Location Lt brachial unknown) (unknown) (no (unknown) (unknown) Coronary artery (units (unknown) date) disease unknown) (unknown) (no (unknown) (unknown) : 1945 (units (unknown) date) Acct:[id number] unknown) (unknown) (no (unknown) (unknown) Dept at (units (unkno wn) date) . unknown) (unknown) (no (unknown) (unknown) Discuss Neuropathy (units (unknown) date) unknown) (unknown) (no (unknown) (unknown) Documented By: (units (unknown) date) Genaro Michael MD unknown) 01/29/22 1132 (unknown) (no (unknown) (unknown) Essential (units (unkn own) date) hypertension unknown) (unknown) (no (unknown) (unknown) Height 6 ft (units (un known) date) unknown) (unknown) (no (unknown) (unknown) Hypertriglyceridemia (uni ts (unknown) date) unknown) (unknown) (no (unknown) (unknown) Intake (units (unkno wn) date) unknown) (unknown) (no (unknown) (unknown) Intake Note: (units (u nknown) date) unknown) (unknown) (no (unknown) (unknown) Intake performed by: (uni ts (unknown) date) Harika Good unknown) (unknown) (no (unknown) (unknown) Intake- Clincial (units (unknown) date) Staff unknown) (unknown) (no (unknown) (unknown) Left hydrocele (units (unknown) date) unknown) (unknown) (no (unknown) (unknown) Legs feel like (units (unknown) date) they're 10 lbs each unknown) day. (unknown) (no (unknown) (unknown) Loc: [facility] (units (unkno wn) date) unknown) (unknown) (no (unknown) (unknown) Male circumcision (units (unknown) date) unknown) (unknown) (no (unknown) (unknown) Medical History (units (unknown) date) (Updated 11/15/21 @ unknown) 08:51 by Dylan Ayala MD) (unknown) (no (unknown) (unknown) Medications (units (un known) date) unknown) (unknown) (no (unknown) (unknown) Oxygen Delivery (units (unknown) date) Method room air unknown) (unknown) (no (unknown) (unknown) PFSH (units (unkno wn) date) unknown) (unknown) (no (unknown) (unknown) Patient at alternate (uni ts (unknown) date) 5 and 10s mg of unknown) Prednisone. (unknown) (no (unknown) (unknown) Patient: (units (unkno wn) date) Evgeny Moore MR#: unknown) M0 (unknown) (no (unknown) (unknown) Position Sitting (units (unknown) date) unknown) (unknown) (no (unknown) (unknown) Prednisone decreased (uni ts (unknown) date) at last visit. unknown) (unknown) (no (unknown) (unknown) Pulse 50 L (units (unk nown) date) unknown) (unknown) (no (unknown) (unknown) Pulse Oximetry (%) 99 (un its (unknown) date) unknown) (unknown) (no (unknown) (unknown) Pulse Source Monitor (uni ts (unknown) date) unknown) (unknown) (no (unknown) (unknown) Reason For Visit (units (unknown) date) unknown) (unknown) (no (unknown) (unknown) Recheck PMR (units (un known) date) unknown) (unknown) (no (unknown) (unknown) Review/Discuss. (units (unknown) date) unknown) (unknown) (no (unknown) (unknown) Signed By: (units (unk nown) date) unknown) (unknown) (no (unknown) (unknown) Smoking Status: (units (unknown) date) Former smoker unknown) (unknown) (no (unknown) (unknown) Social History (units (unknown) date) unknown) (unknown) (no (unknown) (unknown) Spreading and getting (un its (unknown) date) farther up body. 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 unknown) (unknown) (no (unknown) (unknown) Surgical History (units (unknown) date) (Reviewed 11/15/21 @ unknown) 08:39 by Dylan Ayala MD) (unknown) (no (unknown) (unknown) This note may have (units (unknown) date) been all or partially unknown) generated using voice recognition (unknown) (no (unknown) (unknown) Tobacco + Substance (unit s (unknown) date) Use unknown) (unknown) (no (unknown) (unknown) Tobacco Status (units (unknown) date) unknown) (unknown) (no (unknown) (unknown) Visit Reasons: (units (unknown) date) Recheck PMR 08 unknown) (unknown) (no (unknown) (unknown) Vitals (units (unkno wn) date) unknown) (unknown) (no (unknown) (unknown) Weight 81.732 kg (units (unknown) date) unknown) (unknown) (no (unknown) (unknown) [History Confirmed (units (unknown) date) 01/29/22] unknown) (unknown) (no (unknown) (unknown) amlodipine 10 mg (units (unknown) date) tablet 5 mg PO DAILY unknown) 04/06/21 [History Confirmed 01/29/22] (unknown) (no (unknown) (unknown) aspirin 81 mg (units ( unknown) date) tablet,delayed release unknown ) 81 mg PO DAILY 08/21/18 [History Confirmed (unknown) (no (unknown) (unknown) chlorthalidone 25 mg (uni ts (unknown) date) tablet 6.25 mg PO unknown) DAILY 11/30/21 [History Confirmed (unknown) (no (unknown) (unknown) codeine [CODEINE] (units (unknown) date) Allergy (Mild, unknown) Verified 01/29/22 11:37) (unknown) (no (unknown) (unknown) have occurred. If (units (unknown) date) there are any unknown) questions, please contact the Medical Records (unknown) (no (unknown) (unknown) hydralazine Adverse (unit s (unknown) date) Reaction (Severe, unknown) Verified 01/29/22 11:37) (unknown) (no (unknown) (unknown) losartan 100 mg (units (unknown) date) tablet 50 mg PO DAILY unknown) 11/30/21 [History Confirmed 01/29/22] (unknown) (no (unknown) (unknown) marital status: (units (unknown) date) unknown) (unknown) (no (unknown) (unknown) may occur. Occasional (un its (unknown) date) wrong-word or unknown) 'sound-alike' substitutions may have (unknown) (no (unknown) (unknown) metoprolol tartrate (unit s (unknown) date) 25 mg tablet 25 mg PO unknown) BID 08/04/18 [History Confirmed (unknown) (no (unknown) (unknown) minoxidil Adverse (units (unknown) date) Reaction (Severe, unknown) Verified 01/29/22 11:37) (unknown) (no (unknown) (unknown) number of children: 2 (un its (unknown) date) unknown) (unknown) (no (unknown) (unknown) occurred due to the (unit s (unknown) date) inherent limitations unknown) of voice recognition software. Please (unknown) (no (unknown) (unknown) prednisone 20 mg (units (unknown) date) tablet 20 mg PO DAILY unknown) #30 tabs 11/30/21 [Rx Confirmed 01/29/22] (unknown) (no (unknown) (unknown) prednisone 5 mg (units (unknown) date) tablet 5 mg PO DAILY unknown) #90 tabs 11/30/21 [Rx Confirmed 01/29/22] (unknown) (no (unknown) (unknown) quinapril [From (units (unknown) date) Accupril] Adverse unknown) Reaction (Intermediate, Verified 01/29/22 (unknown) (no (unknown) (unknown) read the note (units ( unknown) date) carefully and unknown) recognize, using context, where these substitutions (unknown) (no (unknown) (unknown) rosuvastatin 20 mg (units (unknown) date) tablet 20 mg PO DAILY unknown) 09/11/20 [History Confirmed 01/29/22] (unknown) (no (unknown) (unknown) software. Although (units (unknown) date) every effort is made unknown) to edit content, spareribs trimmer errors (unknown) (no (unknown) (unknown) triamcinolone (units ( unknown) date) acetonide 0.1 % unknown) topical cream 1 applic topical BID PRN 11/30/21 Result panel 4 (unknown) (no (unknown) (unknown) (no value) (units (unk nown) date) unknown) (unknown) (no (unknown) (unknown) Medications: (units (u nknown) date) unknown) (unknown) (no (unknown) (unknown) (no value) (units (unk nown) date) unknown) (unknown) (no (unknown) (unknown) 01/29/22 (units (unkno wn) date) unknown) (unknown) (no (unknown) (unknown) 11:40 (units (unkno wn) date) unknown) (unknown) (no (unknown) (unknown) [place] [address] (unit s (unknown) date) unknown) (unknown) (no (unknown) (unknown) Constricted throat. (unit s (unknown) date) unknown) (unknown) (no (unknown) (unknown) Discontinued Reason: (uni ts (unknown) date) Provider's Order 20 mg unknown ) PO DAILY 30 tabs 0RF (unknown) (no (unknown) (unknown) Draft (units (unkno wn) date) unknown) (unknown) (no (unknown) (unknown) [facility] (units (unknown) date) [facility] unknown) (unknown) (no (unknown) (unknown) Internal Medicine (units (unknown) date) Office Visit unknown) (unknown) (no (unknown) (unknown) as directed by (units (unknown) date) physician 5 mg PO unknown) DAILY 90 tabs 0RF (unknown) (no (unknown) (unknown) chills (units (unkno wn) date) unknown) (unknown) (no (unknown) (unknown) flushing (units (unkno wn) date) unknown) (unknown) (no (unknown) (unknown) or as directed by (units (unknown) date) physician 5 mg (5 x 1 unknown) mg) PO DAILY 150 tabs 3RF (unknown) (no (unknown) (unknown) (no value) (units (unk nown) date) unknown) (unknown) (no (unknown) (unknown) [id number] (units (unkno wn) date) unknown) (unknown) (no (unknown) (unknown) 01/29/22 (units (unkno wn) date) unknown) (unknown) (no (unknown) (unknown) 01/29/22] (units (unkn own) date) unknown) (unknown) (no (unknown) (unknown) 11:37) (units (unkno wn) date) unknown) (unknown) (no (unknown) (unknown) 2-3 weeks left to go (uni ts (unknown) date) but states that he can unknown ) sure feel a difference. (unknown) (no (unknown) (unknown) A little edema around (un its (unknown) date) ankles. unknown) (unknown) (no (unknown) (unknown) Age/Sex: 76 / M Date (uni ts (unknown) date) of Service: unknown) (unknown) (no (unknown) (unknown) Allergies (units (unkn own) date) unknown) (unknown) (no (unknown) (unknown) Assessment + Plan (units (unknown) date) unknown) (unknown) (no (unknown) (unknown) Attending Dr: Genaro Groves (uni ts (unknown) date) Fernanda MARSHALL unknown) (unknown) (no (unknown) (unknown) BMI 24.4 (units (unkno wn) date) unknown) (unknown) (no (unknown) (unknown) BP 142/76 H (units (un known) date) unknown) (unknown) (no (unknown) (unknown) Blood Pressure (units (unknown) date) Location Lt brachial unknown) (unknown) (no (unknown) (unknown) Coronary artery (units (unknown) date) disease unknown) (unknown) (no (unknown) (unknown) : 1945 (units (unknown) date) Acct:[id number] unknown) (unknown) (no (unknown) (unknown) Dept at (units (unkno wn) date) . unknown) (unknown) (no (unknown) (unknown) Discontinued (units (u nknown) date) unknown) (unknown) (no (unknown) (unknown) Discuss Neuropathy (units (unknown) date) unknown) (unknown) (no (unknown) (unknown) Documented By: (units (unknown) date) Genaro Michael MD unknown) 01/29/22 1132 (unknown) (no (unknown) (unknown) Essential (units (unkn own) date) hypertension unknown) (unknown) (no (unknown) (unknown) Height 6 ft (units (un known) date) unknown) (unknown) (no (unknown) (unknown) Hypertriglyceridemia (uni ts (unknown) date) unknown) (unknown) (no (unknown) (unknown) Intake (units (unkno wn) date) unknown) (unknown) (no (unknown) (unknown) Intake Note: (units (u nknown) date) unknown) (unknown) (no (unknown) (unknown) Intake performed by: (uni ts (unknown) date) Harika Good unknown) (unknown) (no (unknown) (unknown) Intake- Clincial (units (unknown) date) Staff unknown) (unknown) (no (unknown) (unknown) Left hydrocele (units (unknown) date) unknown) (unknown) (no (unknown) (unknown) Legs feel like (units (unknown) date) they're 10 lbs each unknown) day. (unknown) (no (unknown) (unknown) Loc: [facility] (units (unkno wn) date) unknown) (unknown) (no (unknown) (unknown) Male circumcision (units (unknown) date) unknown) (unknown) (no (unknown) (unknown) Medical History (units (unknown) date) (Updated 11/15/21 @ unknown) 08:51 by Dylan Ayala MD) (unknown) (no (unknown) (unknown) Medications (units (un known) date) unknown) (unknown) (no (unknown) (unknown) New (units (unkno wn) date) unknown) (unknown) (no (unknown) (unknown) Oxygen Delivery (units (unknown) date) Method room air unknown) (unknown) (no (unknown) (unknown) PFSH (units (unkno wn) date) unknown) (unknown) (no (unknown) (unknown) Patient at alternate (uni ts (unknown) date) 5 and 10s mg of unknown) Prednisone. (unknown) (no (unknown) (unknown) Patient: (units (unkno wn) date) Evgeny Moore MR#: unknown) M0 (unknown) (no (unknown) (unknown) Position Sitting (units (unknown) date) unknown) (unknown) (no (unknown) (unknown) Prednisone decreased (uni ts (unknown) date) at last visit. unknown) (unknown) (no (unknown) (unknown) Pulse 50 L (units (unk nown) date) unknown) (unknown) (no (unknown) (unknown) Pulse Oximetry (%) 99 (un its (unknown) date) unknown) (unknown) (no (unknown) (unknown) Pulse Source Monitor (uni ts (unknown) date) unknown) (unknown) (no (unknown) (unknown) Reason For Visit (units (unknown) date) unknown) (unknown) (no (unknown) (unknown) Recheck PMR (units (un known) date) unknown) (unknown) (no (unknown) (unknown) Refilled (units (unkno wn) date) unknown) (unknown) (no (unknown) (unknown) Review/Discuss. (units (unknown) date) unknown) (unknown) (no (unknown) (unknown) Signed By: (units (unk nown) date) unknown) (unknown) (no (unknown) (unknown) Smoking Status: (units (unknown) date) Former smoker unknown) (unknown) (no (unknown) (unknown) Social History (units (unknown) date) unknown) (unknown) (no (unknown) (unknown) Spreading and getting (un its (unknown) date) farther up body. 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 unknown) (unknown) (no (unknown) (unknown) Surgical History (units (unknown) date) (Reviewed 11/15/21 @ unknown) 08:39 by Dylan Ayala MD) (unknown) (no (unknown) (unknown) This note may have (units (unknown) date) been all or partially unknown) generated using voice recognition (unknown) (no (unknown) (unknown) Tobacco + Substance (unit s (unknown) date) Use unknown) (unknown) (no (unknown) (unknown) Tobacco Status (units (unknown) date) unknown) (unknown) (no (unknown) (unknown) Visit Reasons: (units (unknown) date) Recheck PMR 08 unknown) (unknown) (no (unknown) (unknown) Vitals (units (unkno wn) date) unknown) (unknown) (no (unknown) (unknown) Weight 180 lb 3 oz (units (unknown) date) unknown) (unknown) (no (unknown) (unknown) [History Confirmed (units (unknown) date) 01/29/22] unknown) (unknown) (no (unknown) (unknown) amlodipine 10 mg (units (unknown) date) tablet 5 mg PO DAILY unknown) 04/06/21 [History Confirmed 01/29/22] (unknown) (no (unknown) (unknown) aspirin 81 mg (units ( unknown) date) tablet,delayed release unknown ) 81 mg PO DAILY 08/21/18 [History Confirmed (unknown) (no (unknown) (unknown) chlorthalidone 25 mg (uni ts (unknown) date) tablet 6.25 mg PO unknown) DAILY 11/30/21 [History Confirmed (unknown) (no (unknown) (unknown) codeine [CODEINE] (units (unknown) date) Allergy (Mild, unknown) Verified 01/29/22 11:37) (unknown) (no (unknown) (unknown) have occurred. If (units (unknown) date) there are any unknown) questions, please contact the Medical Records (unknown) (no (unknown) (unknown) hydralazine Adverse (unit s (unknown) date) Reaction (Severe, unknown) Verified 01/29/22 11:37) (unknown) (no (unknown) (unknown) losartan 100 mg (units (unknown) date) tablet 50 mg PO DAILY unknown) 11/30/21 [History Confirmed 01/29/22] (unknown) (no (unknown) (unknown) marital status: (units (unknown) date) unknown) (unknown) (no (unknown) (unknown) may occur. Occasional (un its (unknown) date) wrong-word or unknown) 'sound-alike' substitutions may have (unknown) (no (unknown) (unknown) metoprolol tartrate (unit s (unknown) date) 25 mg tablet 25 mg PO unknown) BID 08/04/18 [History Confirmed (unknown) (no (unknown) (unknown) minoxidil Adverse (units (unknown) date) Reaction (Severe, unknown) Verified 01/29/22 11:37) (unknown) (no (unknown) (unknown) number of children: 2 (un its (unknown) date) unknown) (unknown) (no (unknown) (unknown) occurred due to the (unit s (unknown) date) inherent limitations unknown) of voice recognition software. Please (unknown) (no (unknown) (unknown) prednisone (units (unk nown) date) unknown) (unknown) (no (unknown) (unknown) prednisone 1 mg (units (unknown) date) tablet 5 mg PO DAILY unknown) #150 tabs 01/29/22 [Rx Confirmed 01/29/22] (unknown) (no (unknown) (unknown) prednisone 5 mg (units (unknown) date) tablet 5 mg PO DAILY unknown) #90 tabs 01/29/22 [Rx Confirmed 01/29/22] (unknown) (no (unknown) (unknown) quinapril [From (units (unknown) date) Accupril] Adverse unknown) Reaction (Intermediate, Verified 01/29/22 (unknown) (no (unknown) (unknown) read the note (units ( unknown) date) carefully and unknown) recognize, using context, where these substitutions (unknown) (no (unknown) (unknown) rosuvastatin 20 mg (units (unknown) date) tablet 20 mg PO DAILY unknown) 09/11/20 [History Confirmed 01/29/22] (unknown) (no (unknown) (unknown) software. Although (units (unknown) date) every effort is made unknown) to edit content, spareribs trimmer errors (unknown) (no (unknown) (unknown) triamcinolone (units ( unknown) date) acetonide 0.1 % unknown) topical cream 1 applic topical BID PRN 11/30/21 Result panel 5 (unknown) (no (unknown) (unknown) (no value) (units (unk nown) date) unknown) (unknown) (no (unknown) (unknown) Medications: (units (u nknown) date) unknown) (unknown) (no (unknown) (unknown) Status: Acute (units ( unknown) date) unknown) (unknown) (no (unknown) (unknown) Status: Chronic (units (unknown) date) unknown) (unknown) (no (unknown) (unknown) (no value) (units (unk nown) date) unknown) (unknown) (no (unknown) (unknown) 01/29/22 (units (unkno wn) date) unknown) (unknown) (no (unknown) (unknown) 08/09/22 1215 (units ( unknown) date) unknown) (unknown) (no (unknown) (unknown) 11:40 (units (unkno wn) date) unknown) (unknown) (no (unknown) (unknown) SAPPHIRE Means 21111 (unit s (unknown) date) unknown) (unknown) (no (unknown) (unknown) Constricted throat. (unit s (unknown) date) unknown) (unknown) (no (unknown) (unknown) Discontinued Reason: (uni ts (unknown) date) Provider's Order 20 mg unknown ) PO DAILY 30 tabs 0RF (unknown) (no (unknown) (unknown) [facility] ([facility]) (unknown) (no (unknown) (unknown) Internal Medicine (units (unknown) date) Office Visit unknown) (unknown) (no (unknown) (unknown) Signed (units (unkno wn) date) unknown) (unknown) (no (unknown) (unknown) as directed by (units (unknown) date) physician 5 mg PO unknown) DAILY 90 tabs 0RF (unknown) (no (unknown) (unknown) chills (units (unkno wn) date) unknown) (unknown) (no (unknown) (unknown) flushing (units (unkno wn) date) unknown) (unknown) (no (unknown) (unknown) or as directed by (units (unknown) date) physician 5 mg (5 x 1 unknown) mg) PO DAILY 150 tabs 3RF (unknown) (no (unknown) (unknown) (no value) (units (unk nown) date) unknown) (unknown) (no (unknown) (unknown) (1) Left hydrocele: (unit s (unknown) date) unknown) (unknown) (no (unknown) (unknown) (2) Polymyalgia (units (unknown) date) rheumatica: unknown) (unknown) (no (unknown) (unknown) [id number] (units (unkno wn) date) unknown) (unknown) (no (unknown) (unknown) 01/29/22 (units (unkno wn) date) unknown) (unknown) (no (unknown) (unknown) 01/29/22] (units (unkn own) date) unknown) (unknown) (no (unknown) (unknown) 11:37) (units (unkno wn) date) unknown) (unknown) (no (unknown) (unknown) 2-3 weeks left to go (uni ts (unknown) date) but states that he can unknown ) sure feel a difference. (unknown) (no (unknown) (unknown) A little edema around (un its (unknown) date) ankles. unknown) (unknown) (no (unknown) (unknown) Age/Sex: 76 / M Date (uni ts (unknown) date) of Service: unknown) (unknown) (no (unknown) (unknown) Allergies (units (unkn own) date) unknown) (unknown) (no (unknown) (unknown) Assessment + Plan (units (unknown) date) unknown) (unknown) (no (unknown) (unknown) Attending Dr: Genaro Groves (uni ts (unknown) date) Fernanda MARSHALL unknown) (unknown) (no (unknown) (unknown) BMI 24.4 (units (unkno wn) date) unknown) (unknown) (no (unknown) (unknown) BP 142/76 H (units (un known) date) unknown) (unknown) (no (unknown) (unknown) Blood Pressure (units (unknown) date) Location Lt brachial unknown) (unknown) (no (unknown) (unknown) Chief Complaint: (units (unknown) date) Follow-up PMR unknown) (unknown) (no (unknown) (unknown) Coronary artery (units (unknown) date) disease unknown) (unknown) (no (unknown) (unknown) Currently taking 10 (unit s (unknown) date) mg alternating with 5 unknown) mg every other day of prednisone (unknown) (no (unknown) (unknown) : 1945 (units (unknown) date) Acct:[id number] unknown) (unknown) (no (unknown) (unknown) Dept at (units (unkno wn) date) . unknown) (unknown) (no (unknown) (unknown) Discontinued (units (u nknown) date) unknown) (unknown) (no (unknown) (unknown) Discuss Neuropathy (units (unknown) date) unknown) (unknown) (no (unknown) (unknown) Documented By: (units (unknown) date) Genaro Michael MD unknown) 01/29/22 1132 (unknown) (no (unknown) (unknown) Essential (units (unkn own) date) hypertension unknown) (unknown) (no (unknown) (unknown) For failing to be able (un its (unknown) date) to taper beyond 7.5 mg unknown ) a day or so then I would refer him (unknown) (no (unknown) (unknown) Height 6 ft (units (un known) date) unknown) (unknown) (no (unknown) (unknown) Hypertriglyceridemia (uni ts (unknown) date) unknown) (unknown) (no (unknown) (unknown) I wrote a (units (unkn own) date) prescription for the 1 unknown ) mg tablets to facilitate that (unknown) (no (unknown) (unknown) In addition I (units ( unknown) date) confirmed that the unknown) bruising is almost certainly due to the (unknown) (no (unknown) (unknown) Intake (units (unkno wn) date) unknown) (unknown) (no (unknown) (unknown) Intake Note: (units (u nknown) date) unknown) (unknown) (no (unknown) (unknown) Intake performed by: (uni ts (unknown) date) Harika Good unknown) (unknown) (no (unknown) (unknown) Intake- Clincial (units (unknown) date) Staff unknown) (unknown) (no (unknown) (unknown) Is having some (units (unknown) date) bruising on his arms unknown) wonders if that is when the prednisone some (unknown) (no (unknown) (unknown) Left hydrocele (units (unknown) date) unknown) (unknown) (no (unknown) (unknown) Legs feel like (units (unknown) date) they're 10 lbs each unknown) day. (unknown) (no (unknown) (unknown) Loc: [facility] (units (unkno wn) date) unknown) (unknown) (no (unknown) (unknown) Male circumcision (units (unknown) date) unknown) (unknown) (no (unknown) (unknown) Medical History (units (unknown) date) (Updated 01/29/22 @ unknown) 12:14 by Genaro Michael MD) (unknown) (no (unknown) (unknown) Medications (units (un known) date) unknown) (unknown) (no (unknown) (unknown) New (units (unkno wn) date) unknown) (unknown) (no (unknown) (unknown) No other associated (unit s (unknown) date) symptoms unknown) (unknown) (no (unknown) (unknown) Note (units (unkno wn) date) unknown) (unknown) (no (unknown) (unknown) Note: (units (unkno wn) date) unknown) (unknown) (no (unknown) (unknown) Notes (units (unkno wn) date) unknown) (unknown) (no (unknown) (unknown) Oxygen Delivery (units (unknown) date) Method room air unknown) (unknown) (no (unknown) (unknown) PFSH (units (unkno wn) date) unknown) (unknown) (no (unknown) (unknown) Patient at alternate (uni ts (unknown) date) 5 and 10s mg of unknown) Prednisone. (unknown) (no (unknown) (unknown) Patient is here (units (unknown) date) follow-up on his PMR unknown) and his prednisone reduction. (unknown) (no (unknown) (unknown) Patient: (units (unkno wn) date) Evgeny Moore MR#: unknown) M0 (unknown) (no (unknown) (unknown) Plan (units (unkno wn) date) unknown) (unknown) (no (unknown) (unknown) Polymyalgia (units (un known) date) rheumatica unknown) (unknown) (no (unknown) (unknown) Position Sitting (units (unknown) date) unknown) (unknown) (no (unknown) (unknown) Prednisone decreased (uni ts (unknown) date) at last visit. unknown) (unknown) (no (unknown) (unknown) Pulse 50 L (units (unk nown) date) unknown) (unknown) (no (unknown) (unknown) Pulse Oximetry (%) 99 (un its (unknown) date) unknown) (unknown) (no (unknown) (unknown) Pulse Source Monitor (uni ts (unknown) date) unknown) (unknown) (no (unknown) (unknown) Reason For Visit (units (unknown) date) unknown) (unknown) (no (unknown) (unknown) Recheck PMR (units (un known) date) unknown) (unknown) (no (unknown) (unknown) Refilled (units (unkno wn) date) unknown) (unknown) (no (unknown) (unknown) Review/Discuss. (units (unknown) date) unknown) (unknown) (no (unknown) (unknown) Said he felt fine was (un its (unknown) date) doing fine when he was unknown ) a 10 mg a day there was no (unknown) (no (unknown) (unknown) Signed By: (units (unk nown) date) <Electronically signed unknown ) by Genaro Michael MD> (unknown) (no (unknown) (unknown) Smoking Status: (units (unknown) date) Former smoker unknown) (unknown) (no (unknown) (unknown) Social History (units (unknown) date) unknown) (unknown) (no (unknown) (unknown) Spreading and getting (un its (unknown) date) farther up body. 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 unknown) (unknown) (no (unknown) (unknown) Surgical History (units (unknown) date) (Reviewed 11/15/21 @ unknown) 08:39 by Dylan Ayala MD) (unknown) (no (unknown) (unknown) This note may have (units (unknown) date) been all or partially unknown) generated using voice recognition (unknown) (no (unknown) (unknown) This point I think (units (unknown) date) next step is to reset unknown) him back to 10 mg a day of prednisone (unknown) (no (unknown) (unknown) Tobacco + Substance (unit s (unknown) date) Use unknown) (unknown) (no (unknown) (unknown) Tobacco Status (units (unknown) date) unknown) (unknown) (no (unknown) (unknown) Visit Reasons: (units (unknown) date) Recheck PMR 08 unknown) (unknown) (no (unknown) (unknown) Vitals (units (unkno wn) date) unknown) (unknown) (no (unknown) (unknown) Weight 81.732 kg (units (unknown) date) unknown) (unknown) (no (unknown) (unknown) [History Confirmed (units (unknown) date) 01/29/22] unknown) (unknown) (no (unknown) (unknown) after 3 weeks of 10 (unit s (unknown) date) mg daily reduced to 9 unknown) mg daily and do that for 3 weeks then (unknown) (no (unknown) (unknown) amlodipine 10 mg (units (unknown) date) tablet 5 mg PO DAILY unknown) 04/06/21 [History Confirmed 01/29/22] (unknown) (no (unknown) (unknown) aspirin 81 mg (units ( unknown) date) tablet,delayed release unknown ) 81 mg PO DAILY 08/21/18 [History Confirmed (unknown) (no (unknown) (unknown) chlorthalidone 25 mg (uni ts (unknown) date) tablet 6.25 mg PO unknown) DAILY 11/30/21 [History Confirmed (unknown) (no (unknown) (unknown) codeine [CODEINE] (units (unknown) date) Allergy (Mild, unknown) Verified 01/29/22 11:37) (unknown) (no (unknown) (unknown) have occurred. If (units (unknown) date) there are any unknown) questions, please contact the Medical Records (unknown) (no (unknown) (unknown) he went to the 5 mg (unit s (unknown) date) on alternating days he unknown ) feels like his legs are 100 lb feels (unknown) (no (unknown) (unknown) hydralazine Adverse (unit s (unknown) date) Reaction (Severe, unknown) Verified 01/29/22 11:37) (unknown) (no (unknown) (unknown) longer period of time (un its (unknown) date) as what is necessary. unknown) I have had many patients over time (unknown) (no (unknown) (unknown) losartan 100 mg (units (unknown) date) tablet 50 mg PO DAILY unknown) 11/30/21 [History Confirmed 01/29/22] (unknown) (no (unknown) (unknown) marital status: (units (unknown) date) unknown) (unknown) (no (unknown) (unknown) may occur. Occasional (un its (unknown) date) wrong-word or unknown) 'sound-alike' substitutions may have (unknown) (no (unknown) (unknown) metoprolol tartrate (unit s (unknown) date) 25 mg tablet 25 mg PO unknown) BID 08/04/18 [History Confirmed (unknown) (no (unknown) (unknown) mild edema of his (units (unknown) date) ankles and wonders unknown) about that as well (unknown) (no (unknown) (unknown) minoxidil Adverse (units (unknown) date) Reaction (Severe, unknown) Verified 01/29/22 11:37) (unknown) (no (unknown) (unknown) noticeable change (units (unknown) date) maybe very minimal unknown) when he reduced from 15 mg. However when (unknown) (no (unknown) (unknown) number of children: 2 (un its (unknown) date) unknown) (unknown) (no (unknown) (unknown) occurred due to the (unit s (unknown) date) inherent limitations unknown) of voice recognition software. Please (unknown) (no (unknown) (unknown) prednisone (units (unk nown) date) unknown) (unknown) (no (unknown) (unknown) prednisone 1 mg (units (unknown) date) tablet 5 mg PO DAILY unknown) #150 tabs 01/29/22 [Rx Confirmed 01/29/22] (unknown) (no (unknown) (unknown) prednisone 5 mg (units (unknown) date) tablet 5 mg PO DAILY unknown) #90 tabs 01/29/22 [Rx Confirmed 01/29/22] (unknown) (no (unknown) (unknown) prednisone uneven the (un its (unknown) date) mild edema is almost unknown) certainly due to the prednisone (unknown) (no (unknown) (unknown) quinapril [From (units (unknown) date) Accupril] Adverse unknown) Reaction (Intermediate, Verified 01/29/22 (unknown) (no (unknown) (unknown) read the note (units ( unknown) date) carefully and unknown) recognize, using context, where these substitutions (unknown) (no (unknown) (unknown) reduced 8 mg daily in (un its (unknown) date) every 3 weeks reduce unknown) by 1 mg per day (unknown) (no (unknown) (unknown) rosuvastatin 20 mg (units (unknown) date) tablet 20 mg PO DAILY unknown) 09/11/20 [History Confirmed 01/29/22] (unknown) (no (unknown) (unknown) software. Although (units (unknown) date) every effort is made unknown) to edit content, spareribs trimmer errors (unknown) (no (unknown) (unknown) steroid sparing drugs (un its (unknown) date) etcetera unknown) (unknown) (no (unknown) (unknown) to Rheumatology for (unit s (unknown) date) thoughts about other unknown) options including perhaps using some (unknown) (no (unknown) (unknown) triamcinolone (units ( unknown) date) acetonide 0.1 % unknown) topical cream 1 applic topical BID PRN 11/30/21 (unknown) (no (unknown) (unknown) very fatigued (units ( unknown) date) unknown) (unknown) (no (unknown) (unknown) which I presume will (uni ts (unknown) date) reset his symptoms. unknown) Then I think a more slow taper over (unknown) (no (unknown) (unknown) with PMR who require (uni ts (unknown) date) this. Will go back to unknown) 10 mg daily and then from there Result panel 6 (unknown) (no (unknown) (unknown) (no value) (units (unk nown) date) unknown) (unknown) (no (unknown) (unknown) [id number] (units (unkno wn) date) unknown) (unknown) (no (unknown) (unknown) 03/26/22 (units (unkno wn) date) unknown) (unknown) (no (unknown) (unknown) 11:37) (units (unkno wn) date) unknown) (unknown) (no (unknown) (unknown) 76 y/o M presents to (uni ts (unknown) date) clinic for unknown) preoperative to schedule hydrocelectomy (unknown) (no (unknown) (unknown) Age/Sex: 76 / M Date (uni ts (unknown) date) of Service: unknown) (unknown) (no (unknown) (unknown) Allergies (units (unkn own) date) unknown) (unknown) (no (unknown) (unknown) [place] [address] (unit s (unknown) date) unknown) (unknown) (no (unknown) (unknown) Attending Dr: Dylan (uni ts (unknown) date) Jamie MARSHALL unknown) (unknown) (no (unknown) (unknown) Constricted throat. (unit s (unknown) date) unknown) (unknown) (no (unknown) (unknown) Coronary artery (units (unknown) date) disease unknown) (unknown) (no (unknown) (unknown) : 1945 (units (unknown) date) Acct:[id number] unknown) (unknown) (no (unknown) (unknown) Dept at (units (unkno wn) date) . unknown) (unknown) (no (unknown) (unknown) Documented By: (units (unknown) date) Dylan Ayala MD unknown) 03/26/22 1117 (unknown) (no (unknown) (unknown) Draft (units (unkno wn) date) unknown) (unknown) (no (unknown) (unknown) Essential (units (unkn own) date) hypertension unknown) (unknown) (no (unknown) (unknown) Hypertriglyceridemia (uni ts (unknown) date) unknown) (unknown) (no (unknown) (unknown) Intake Note: (units (u nknown) date) unknown) (unknown) (no (unknown) (unknown) Intake performed by: (uni ts (unknown) date) Odalis Higgins unknown) (unknown) (no (unknown) (unknown) Intake (units (unkno wn) date) unknown) (unknown) (no (unknown) (unknown) Intake- Clincial (units (unknown) date) Staff unknown) (unknown) (no (unknown) (unknown) [facility] (units (unknown) date) unknown) (unknown) (no (unknown) (unknown) Left hydrocele (units (unknown) date) unknown) (unknown) (no (unknown) (unknown) Loc: [facility] (units (unkno wn) date) unknown) (unknown) (no (unknown) (unknown) Male circumcision (units (unknown) date) unknown) (unknown) (no (unknown) (unknown) Medical History (units (unknown) date) (Updated 01/29/22 @ unknown) 12:14 by Genaro Michael MD) (unknown) (no (unknown) (unknown) PFSH (units (unkno wn) date) unknown) (unknown) (no (unknown) (unknown) Patient: (units (unkno wn) date) MichaelEvgeny Gely MR#: unknown) M0 (unknown) (no (unknown) (unknown) Polymyalgia (units (un known) date) rheumatica unknown) (unknown) (no (unknown) (unknown) Reason For Visit (units (unknown) date) unknown) (unknown) (no (unknown) (unknown) Signed By: (units (unk nown) date) unknown) (unknown) (no (unknown) (unknown) Smoking Status: (units (unknown) date) Former smoker unknown) (unknown) (no (unknown) (unknown) Social History (units (unknown) date) (Reviewed 11/15/21 @ unknown) 08:39 by Dylan Ayala MD) (unknown) (no (unknown) (unknown) 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 unknown) (unknown) (no (unknown) (unknown) Surgical History (units (unknown) date) (Reviewed 11/15/21 @ unknown) 08:39 by Dylan Ayala MD) (unknown) (no (unknown) (unknown) This note may have (units (unknown) date) been all or partially unknown) generated using voice recognition (unknown) (no (unknown) (unknown) Tobacco Status (units (unknown) date) unknown) (unknown) (no (unknown) (unknown) Urology Office Visit (uni ts (unknown) date) unknown) (unknown) (no (unknown) (unknown) Visit Reasons: pre-op (un its (unknown) date) to schedule unknown) hydrocelectomy (unknown) (no (unknown) (unknown) chills (units (unkno wn) date) unknown) (unknown) (no (unknown) (unknown) codeine [CODEINE] (units (unknown) date) Allergy (Mild, unknown) Verified 01/29/22 11:37) (unknown) (no (unknown) (unknown) flushing (units (unkno wn) date) unknown) (unknown) (no (unknown) (unknown) have occurred. If (units (unknown) date) there are any unknown) questions, please contact the Medical Records (unknown) (no (unknown) (unknown) hydralazine Adverse (unit s (unknown) date) Reaction (Severe, unknown) Verified 01/29/22 11:37) (unknown) (no (unknown) (unknown) marital status: (units (unknown) date) unknown) (unknown) (no (unknown) (unknown) may occur. Occasional (un its (unknown) date) wrong-word or unknown) 'sound-alike' substitutions may have (unknown) (no (unknown) (unknown) minoxidil Adverse (units (unknown) date) Reaction (Severe, unknown) Verified 01/29/22 11:37) (unknown) (no (unknown) (unknown) number of children: 2 (un its (unknown) date) unknown) (unknown) (no (unknown) (unknown) occurred due to the (unit s (unknown) date) inherent limitations unknown) of voice recognition software. Please (unknown) (no (unknown) (unknown) quinapril [From (units (unknown) date) Accupril] Adverse unknown) Reaction (Intermediate, Verified 01/29/22 (unknown) (no (unknown) (unknown) read the note (units ( unknown) date) carefully and unknown) recognize, using context, where these substitutions (unknown) (no (unknown) (unknown) software. Although (units (unknown) date) every effort is made unknown) to edit content, spareribs trimmer errors Result panel 7 (unknown) (no (unknown) (unknown) (no value) (units (unk nown) date) unknown) (unknown) (no (unknown) (unknown) [id number] (units (unkno wn) date) unknown) (unknown) (no (unknown) (unknown) 03/26/22 (units (unkno wn) date) unknown) (unknown) (no (unknown) (unknown) 11:23) (units (unkno wn) date) unknown) (unknown) (no (unknown) (unknown) Age/Sex: 76 / M Date (uni ts (unknown) date) of Service: unknown) (unknown) (no (unknown) (unknown) Allergies (units (unkn own) date) unknown) (unknown) (no (unknown) (unknown) [place] [address] (unit s (unknown) date) unknown) (unknown) (no (unknown) (unknown) Attending Dr: Genaro Groves (uni ts (unknown) date) Fernanda MARSHALL unknown) (unknown) (no (unknown) (unknown) Constricted throat. (unit s (unknown) date) unknown) (unknown) (no (unknown) (unknown) Coronary artery (units (unknown) date) disease unknown) (unknown) (no (unknown) (unknown) : 1945 (units (unknown) date) Acct:[id number] unknown) (unknown) (no (unknown) (unknown) Dept at (units (unkno wn) date) . unknown) (unknown) (no (unknown) (unknown) Documented By: (units (unknown) date) Genaro Michael MD unknown) 03/26/22 1618 (unknown) (no (unknown) (unknown) Draft (units (unkno wn) date) unknown) (unknown) (no (unknown) (unknown) Essential (units (unkn own) date) hypertension unknown) (unknown) (no (unknown) (unknown) [facility] unknown) (unknown) (no (unknown) (unknown) Hypertriglyceridemia (uni ts (unknown) date) unknown) (unknown) (no (unknown) (unknown) Intake Note: (units (u nknown) date) unknown) (unknown) (no (unknown) (unknown) Intake performed by: (uni ts (unknown) date) Harika Good unknown) (unknown) (no (unknown) (unknown) Intake (units (unkno wn) date) unknown) (unknown) (no (unknown) (unknown) Intake- Clincial (units (unknown) date) Staff unknown) (unknown) (no (unknown) (unknown) Internal Medicine (units (unknown) date) Office Visit unknown) (unknown) (no (unknown) (unknown) Left hydrocele (units (unknown) date) unknown) (unknown) (no (unknown) (unknown) Loc: [facility] (units (unkno wn) date) unknown) (unknown) (no (unknown) (unknown) Male circumcision (units (unknown) date) unknown) (unknown) (no (unknown) (unknown) Medical History (units (unknown) date) (Updated 01/29/22 @ unknown) 12:14 by Genaro Michael MD) (unknown) (no (unknown) (unknown) PFSH (units (unkno wn) date) unknown) (unknown) (no (unknown) (unknown) Patient: (units (unkno wn) date) Evgeny Moore MR#: unknown) M0 (unknown) (no (unknown) (unknown) Polymyalgia (units (un known) date) rheumatica unknown) (unknown) (no (unknown) (unknown) Potential Hernia (units (unknown) date) unknown) (unknown) (no (unknown) (unknown) Reason For Visit (units (unknown) date) unknown) (unknown) (no (unknown) (unknown) Review/Discuss. (units (unknown) date) unknown) (unknown) (no (unknown) (unknown) Right Groin. 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 unknown) (unknown) (no (unknown) (unknown) Surgical History (units (unknown) date) (Reviewed 11/15/21 @ unknown) 08:39 by Dylan Ayala MD) (unknown) (no (unknown) (unknown) This note may have (units (unknown) date) been all or partially unknown) generated using voice recognition (unknown) (no (unknown) (unknown) Tobacco + Substance (unit s (unknown) date) Use unknown) (unknown) (no (unknown) (unknown) Tobacco Status (units (unknown) date) unknown) (unknown) (no (unknown) (unknown) Visit Reasons: Check (uni ts (unknown) date) for Right Groin unknown) [id number] (unknown) (no (unknown) (unknown) chills (units (unkno wn) date) unknown) (unknown) (no (unknown) (unknown) codeine [CODEINE] (units (unknown) date) Allergy (Mild, unknown) Verified 03/26/22 11:23) (unknown) (no (unknown) (unknown) flushing (units (unkno wn) date) unknown) (unknown) (no (unknown) (unknown) have occurred. If (units (unknown) date) there are any unknown) questions, please contact the Medical Records (unknown) (no (unknown) (unknown) hydralazine Adverse (unit s (unknown) date) Reaction (Severe, unknown) Verified 03/26/22 11:23) (unknown) (no (unknown) (unknown) marital status: (units (unknown) date) unknown) (unknown) (no (unknown) (unknown) may occur. Occasional (un its (unknown) date) wrong-word or unknown) 'sound-alike' substitutions may have (unknown) (no (unknown) (unknown) minoxidil Adverse (units (unknown) date) Reaction (Severe, unknown) Verified 03/26/22 11:23) (unknown) (no (unknown) (unknown) number of children: 2 (un its (unknown) date) unknown) (unknown) (no (unknown) (unknown) occurred due to the (unit s (unknown) date) inherent limitations unknown) of voice recognition software. Please (unknown) (no (unknown) (unknown) quinapril [From (units (unknown) date) Accupril] Adverse unknown) Reaction (Intermediate, Verified 03/26/22 (unknown) (no (unknown) (unknown) read the note (units ( unknown) date) carefully and unknown) recognize, using context, where these substitutions (unknown) (no (unknown) (unknown) software. Although (units (unknown) date) every effort is made unknown) to edit content, spareribs trimmer errors Result panel 8 (unknown) (no (unknown) (unknown) (no value) (units (unk nown) date) unknown) (unknown) (no (unknown) (unknown) [id number] (units (unkno wn) date) unknown) (unknown) (no (unknown) (unknown) 03/26/22 (units (unkno wn) date) unknown) (unknown) (no (unknown) (unknown) 03/26/22] (units (unkn own) date) unknown) (unknown) (no (unknown) (unknown) 16:26) (units (unkno wn) date) unknown) (unknown) (no (unknown) (unknown) 16:27 (units (unkno wn) date) unknown) (unknown) (no (unknown) (unknown) Age/Sex: 76 / M Date (uni ts (unknown) date) of Service: unknown) (unknown) (no (unknown) (unknown) Allergies (units (unkn own) date) unknown) (unknown) (no (unknown) (unknown) [place] [address] (unit s (unknown) date) unknown) (unknown) (no (unknown) (unknown) Attending Dr: Genaro Groves (uni ts (unknown) date) Fernanda MARSHALL unknown) (unknown) (no (unknown) (unknown) BMI 29.2 (units (unkno wn) date) unknown) (unknown) (no (unknown) (unknown) BP 136/92 H (units (un known) date) unknown) (unknown) (no (unknown) (unknown) Blood Pressure (units (unknown) date) Location Lt brachial unknown) (unknown) (no (unknown) (unknown) Constricted throat. (unit s (unknown) date) unknown) (unknown) (no (unknown) (unknown) Coronary artery (units (unknown) date) disease unknown) (unknown) (no (unknown) (unknown) : 1945 (units (unknown) date) Acct:[id number] unknown) (unknown) (no (unknown) (unknown) Dept at (units (unkno wn) date) . unknown) (unknown) (no (unknown) (unknown) Documented By: (units (unknown) date) Genaro Michael MD unknown) 03/26/22 1618 (unknown) (no (unknown) (unknown) Draft (units (unkno wn) date) unknown) (unknown) (no (unknown) (unknown) Essential (units (unkn own) date) hypertension unknown) (unknown) (no (unknown) (unknown) Experiencing Pain (units (unknown) date) unknown) (unknown) (no (unknown) (unknown) [facility]) (unknown) (no (unknown) (unknown) Has a current (units ( unknown) date) homemade brace on unknown) there that is helpful. (unknown) (no (unknown) (unknown) Height 6 ft (units (un known) date) unknown) (unknown) (no (unknown) (unknown) Hypertriglyceridemia (uni ts (unknown) date) unknown) (unknown) (no (unknown) (unknown) Intake Note: (units (u nknown) date) unknown) (unknown) (no (unknown) (unknown) Intake performed by: (uni ts (unknown) date) Harika Good unknown) (unknown) (no (unknown) (unknown) Intake (units (unkno wn) date) unknown) (unknown) (no (unknown) (unknown) Intake- Clincial (units (unknown) date) Staff unknown) (unknown) (no (unknown) (unknown) Internal Medicine (units (unknown) date) Office Visit unknown) (unknown) (no (unknown) (unknown) Left hydrocele (units (unknown) date) unknown) (unknown) (no (unknown) (unknown) Loc: [facility] (units (unkno wn) date) unknown) (unknown) (no (unknown) (unknown) Male circumcision (units (unknown) date) unknown) (unknown) (no (unknown) (unknown) Medical History (units (unknown) date) (Updated 01/29/22 @ unknown) 12:14 by Genaro Michael MD) (unknown) (no (unknown) (unknown) Medications (units (un known) date) unknown) (unknown) (no (unknown) (unknown) No other (units (unkno wn) date) questions/concerns. unknown) (unknown) (no (unknown) (unknown) Noticed for a few (units (unknown) date) days now. unknown) (unknown) (no (unknown) (unknown) Oxygen Delivery (units (unknown) date) Method room air unknown) (unknown) (no (unknown) (unknown) PFSH (units (unkno wn) date) unknown) (unknown) (no (unknown) (unknown) Patient: (units (unkno wn) date) Evgeny Moore Gely MR#: unknown) M0 (unknown) (no (unknown) (unknown) Polymyalgia (units (un known) date) rheumatica unknown) (unknown) (no (unknown) (unknown) Position Sitting (units (unknown) date) unknown) (unknown) (no (unknown) (unknown) Potential Hernia - (units (unknown) date) Right Groin. unknown) (unknown) (no (unknown) (unknown) Pulse 65 (units (unkno wn) date) unknown) (unknown) (no (unknown) (unknown) Pulse Oximetry (%) 99 (un its (unknown) date) unknown) (unknown) (no (unknown) (unknown) Pulse Source Monitor (uni ts (unknown) date) unknown) (unknown) (no (unknown) (unknown) Reason For Visit (units (unknown) date) unknown) (unknown) (no (unknown) (unknown) Review/Discuss. 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 unknown) (unknown) (no (unknown) (unknown) Surgical History (units (unknown) date) (Reviewed 11/15/21 @ unknown) 08:39 by Dylan Ayala MD) (unknown) (no (unknown) (unknown) This note may have (units (unknown) date) been all or partially unknown) generated using voice recognition (unknown) (no (unknown) (unknown) Tobacco + Substance (unit s (unknown) date) Use unknown) (unknown) (no (unknown) (unknown) Tobacco Status (units (unknown) date) unknown) (unknown) (no (unknown) (unknown) Visit Reasons: Check (uni ts (unknown) date) for Right Groin unknown) [id number] (unknown) (no (unknown) (unknown) Vitals (units (unkno wn) date) unknown) (unknown) (no (unknown) (unknown) Weight 216 lb 2 oz (units (unknown) date) unknown) (unknown) (no (unknown) (unknown) Will be doing surgery (un its (unknown) date) for a hydrocele - unknown) states to maybe get the hernia taken (unknown) (no (unknown) (unknown) [History Confirmed (units (unknown) date) 03/26/22] unknown) (unknown) (no (unknown) (unknown) amlodipine 10 mg (units (unknown) date) tablet 5 mg PO DAILY unknown) 04/06/21 [History Confirmed 03/26/22] (unknown) (no (unknown) (unknown) aspirin 81 mg (units ( unknown) date) tablet,delayed release unknown ) 81 mg PO DAILY 08/21/18 [History Confirmed (unknown) (no (unknown) (unknown) care of at the same (unit s (unknown) date) time. unknown) (unknown) (no (unknown) (unknown) chills (units (unkno wn) date) unknown) (unknown) (no (unknown) (unknown) chlorthalidone 25 mg (uni ts (unknown) date) tablet 6.25 mg PO unknown) DAILY 11/30/21 [History Confirmed (unknown) (no (unknown) (unknown) codeine [CODEINE] (units (unknown) date) Allergy (Mild, unknown) Verified 03/26/22 16:26) (unknown) (no (unknown) (unknown) flushing (units (unkno wn) date) unknown) (unknown) (no (unknown) (unknown) have occurred. If (units (unknown) date) there are any unknown) questions, please contact the Medical Records (unknown) (no (unknown) (unknown) hydralazine Adverse (unit s (unknown) date) Reaction (Severe, unknown) Verified 03/26/22 16:26) (unknown) (no (unknown) (unknown) losartan 100 mg (units (unknown) date) tablet 50 mg PO DAILY unknown) 11/30/21 [History Confirmed 03/26/22] (unknown) (no (unknown) (unknown) marital status: (units (unknown) date) unknown) (unknown) (no (unknown) (unknown) may occur. Occasional (un its (unknown) date) wrong-word or unknown) 'sound-alike' substitutions may have (unknown) (no (unknown) (unknown) metoprolol tartrate (unit s (unknown) date) 25 mg tablet 25 mg PO unknown) BID 08/04/18 [History Confirmed (unknown) (no (unknown) (unknown) minoxidil Adverse (units (unknown) date) Reaction (Severe, unknown) Verified 03/26/22 16:26) (unknown) (no (unknown) (unknown) number of children: 2 (un its (unknown) date) unknown) (unknown) (no (unknown) (unknown) occurred due to the (unit s (unknown) date) inherent limitations unknown) of voice recognition software. Please (unknown) (no (unknown) (unknown) prednisone 1 mg (units (unknown) date) tablet 5 mg PO DAILY unknown) #150 tabs 01/29/22 [Rx Confirmed 03/26/22] (unknown) (no (unknown) (unknown) prednisone 5 mg (units (unknown) date) tablet 5 mg PO DAILY unknown) #90 tabs 01/29/22 [Rx Confirmed 03/26/22] (unknown) (no (unknown) (unknown) quinapril [From (units (unknown) date) Accupril] Adverse unknown) Reaction (Intermediate, Verified 03/26/22 (unknown) (no (unknown) (unknown) read the note (units ( unknown) date) carefully and unknown) recognize, using context, where these substitutions (unknown) (no (unknown) (unknown) rosuvastatin 20 mg (units (unknown) date) tablet 20 mg PO DAILY unknown) 09/11/20 [History Confirmed 03/26/22] (unknown) (no (unknown) (unknown) software. Although (units (unknown) date) every effort is made unknown) to edit content, spareribs trimmer errors (unknown) (no (unknown) (unknown) triamcinolone (units ( unknown) date) acetonide 0.1 % unknown) topical cream 1 applic topical BID PRN 11/30/21 Result panel 9 (unknown) (no (unknown) (unknown) (no value) (units (unk nown) date) unknown) (unknown) (no (unknown) (unknown) [id number] (units (unkno wn) date) unknown) (unknown) (no (unknown) (unknown) 03/26/22 (units (unkno wn) date) unknown) (unknown) (no (unknown) (unknown) 03/26/22] (units (unkn own) date) unknown) (unknown) (no (unknown) (unknown) 11:23 (units (unkno wn) date) unknown) (unknown) (no (unknown) (unknown) 16:26) (units (unkno wn) date) unknown) (unknown) (no (unknown) (unknown) 76 y/o M presents to (uni ts (unknown) date) clinic for unknown) preoperative to schedule hydrocelectomy (unknown) (no (unknown) (unknown) Age/Sex: 76 / M Date (uni ts (unknown) date) of Service: unknown) (unknown) (no (unknown) (unknown) All systems reviewed (uni ts (unknown) date) + are unremarkable unknown) except as noted in HPI and below (unknown) (no (unknown) (unknown) Allergies (units (unkn own) date) unknown) (unknown) (no (unknown) (unknown) [place] [address] (unit s (unknown) date) unknown) (unknown) (no (unknown) (unknown) Attending Dr: Dylan (uni ts (unknown) date) Jamie MARSHALL unknown) (unknown) (no (unknown) (unknown) BP 158/78 H (units (un known) date) unknown) (unknown) (no (unknown) (unknown) Blood Pressure (units (unknown) date) Location Lt brachial unknown) (unknown) (no (unknown) (unknown) Chief Complaint (units (unknown) date) unknown) (unknown) (no (unknown) (unknown) Chief Complaint: Left (un its (unknown) date) hydrocele unknown) (unknown) (no (unknown) (unknown) Const (units (unkno wn) date) unknown) (unknown) (no (unknown) (unknown) Constricted throat. (unit s (unknown) date) unknown) (unknown) (no (unknown) (unknown) Coronary artery (units (unknown) date) disease unknown) (unknown) (no (unknown) (unknown) : 1945 (units (unknown) date) Acct:[id number] unknown) (unknown) (no (unknown) (unknown) Dept at (units (unkno wn) date) . unknown) (unknown) (no (unknown) (unknown) Details: (units (unkno wn) date) unknown) (unknown) (no (unknown) (unknown) Documented By: (units (unknown) date) Dylan Ayala MD unknown) 03/26/22 1117 (unknown) (no (unknown) (unknown) Draft (units (unkno wn) date) unknown) (unknown) (no (unknown) (unknown) Essential (units (unkn own) date) hypertension unknown) (unknown) (no (unknown) (unknown) HPI (units (unkno wn) date) unknown) (unknown) (no (unknown) (unknown) He otherwise denies (unit s (unknown) date) interval new unknown) complaints. He continues to be on a tapered (unknown) (no (unknown) (unknown) Hypertriglyceridemia (uni ts (unknown) date) unknown) (unknown) (no (unknown) (unknown) Intake Note: (units (u nknown) date) unknown) (unknown) (no (unknown) (unknown) Intake performed by: (uni ts (unknown) date) Odalis Higgins unknown) (unknown) (no (unknown) (unknown) Intake (units (unkno wn) date) unknown) (unknown) (no (unknown) (unknown) Intake- Clincial (units (unknown) date) Staff unknown) (unknown) (no (unknown) (unknown) [facility] (units (unknown) date) unknown) (unknown) (no (unknown) (unknown) Left hydrocele (units (unknown) date) unknown) (unknown) (no (unknown) (unknown) Loc: [facility] (units (unkno wn) date) unknown) (unknown) (no (unknown) (unknown) Male circumcision (units (unknown) date) unknown) (unknown) (no (unknown) (unknown) Medical History (units (unknown) date) (Reviewed 03/26/22 @ unknown) 16:41 by Dylan Ayala MD) (unknown) (no (unknown) (unknown) Medications (units (un known) date) unknown) (unknown) (no (unknown) (unknown) Oxygen Delivery (units (unknown) date) Method room air unknown) (unknown) (no (unknown) (unknown) PFSH (units (unkno wn) date) unknown) (unknown) (no (unknown) (unknown) Patient: (units (unkno wn) date) Evgeny Moore Gely MR#: unknown) M0 (unknown) (no (unknown) (unknown) Polymyalgia (units (un known) date) rheumatica unknown) (unknown) (no (unknown) (unknown) Position Sitting (units (unknown) date) unknown) (unknown) (no (unknown) (unknown) Pulse 52 L (units (unk nown) date) unknown) (unknown) (no (unknown) (unknown) Pulse Oximetry (%) 99 (un its (unknown) date) unknown) (unknown) (no (unknown) (unknown) Pulse Source Monitor (uni ts (unknown) date) unknown) (unknown) (no (unknown) (unknown) ROS (units (unkno wn) date) unknown) (unknown) (no (unknown) (unknown) Reason For Visit (units (unknown) date) unknown) (unknown) (no (unknown) (unknown) Respiration 16 (units (unknown) date) unknown) (unknown) (no (unknown) (unknown) Signed By: (units (unk nown) date) unknown) (unknown) (no (unknown) (unknown) Smoking Status: (units (unknown) date) Former smoker unknown) (unknown) (no (unknown) (unknown) Social History (units (unknown) date) (Reviewed 03/26/22 @ unknown) 16:41 by Dylan Ayala MD) (unknown) (no (unknown) (unknown) 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 unknown) (unknown) (no (unknown) (unknown) Surgical History (units (unknown) date) (Reviewed 03/26/22 @ unknown) 16:41 by Dylan Ayala MD) (unknown) (no (unknown) (unknown) This note may have (units (unknown) date) been all or partially unknown) generated using voice recognition (unknown) (no (unknown) (unknown) Tobacco Status (units (unknown) date) unknown) (unknown) (no (unknown) (unknown) Yan is a 76-year-old (unit s (unknown) date) male unknown) presenting today with request for definitive (unknown) (no (unknown) (unknown) Urology Office Visit (uni ts (unknown) date) unknown) (unknown) (no (unknown) (unknown) Visit Reasons: pre-op (un its (unknown) date) to schedule unknown) hydrocelectomy (unknown) (no (unknown) (unknown) Vitals (units (unkno wn) date) unknown) (unknown) (no (unknown) (unknown) [History Confirmed (units (unknown) date) 03/26/22] unknown) (unknown) (no (unknown) (unknown) amlodipine 10 mg (units (unknown) date) tablet 5 mg PO DAILY unknown) 04/06/21 [History Confirmed 03/26/22] (unknown) (no (unknown) (unknown) aspirin 81 mg (units ( unknown) date) tablet,delayed release unknown ) 81 mg PO DAILY 08/21/18 [History Confirmed (unknown) (no (unknown) (unknown) chills (units (unkno wn) date) unknown) (unknown) (no (unknown) (unknown) chlorthalidone 25 mg (uni ts (unknown) date) tablet 6.25 mg PO unknown) DAILY 11/30/21 [History Confirmed (unknown) (no (unknown) (unknown) codeine [CODEINE] (units (unknown) date) Allergy (Mild, unknown) Verified 03/26/22 16:26) (unknown) (no (unknown) (unknown) contacted [facility] ([facility] in scheduled unknown) appointment he is developed a symptomatic (unknown) (no (unknown) (unknown) dose of prednisone, (unit s (unknown) date) currently 8 mg per day unknown ) for treatment of polymyalgia (unknown) (no (unknown) (unknown) flushing (units (unkno wn) date) unknown) (unknown) (no (unknown) (unknown) have occurred. If (units (unknown) date) there are any unknown) questions, please contact the Medical Records (unknown) (no (unknown) (unknown) hydralazine Adverse (unit s (unknown) date) Reaction (Severe, unknown) Verified 03/26/22 16:26) (unknown) (no (unknown) (unknown) inguinal region. He (unit s (unknown) date) examined himself in unknown) surmised that was the hernia. Since (unknown) (no (unknown) (unknown) losartan 100 mg (units (unknown) date) tablet 50 mg PO DAILY unknown) 11/30/21 [History Confirmed 03/26/22] (unknown) (no (unknown) (unknown) marital status: (units (unknown) date) unknown) (unknown) (no (unknown) (unknown) may occur. Occasional (un its (unknown) date) wrong-word or unknown) 'sound-alike' substitutions may have (unknown) (no (unknown) (unknown) metoprolol tartrate (unit s (unknown) date) 25 mg tablet 25 mg PO unknown) BID 08/04/18 [History Confirmed (unknown) (no (unknown) (unknown) minoxidil Adverse (units (unknown) date) Reaction (Severe, unknown) Verified 03/26/22 16:26) (unknown) (no (unknown) (unknown) number of children: 2 (un its (unknown) date) unknown) (unknown) (no (unknown) (unknown) occurred due to the (unit s (unknown) date) inherent limitations unknown) of voice recognition software. Please (unknown) (no (unknown) (unknown) prednisone 1 mg (units (unknown) date) tablet 5 mg PO DAILY unknown) #150 tabs 01/29/22 [Rx Confirmed 03/26/22] (unknown) (no (unknown) (unknown) prednisone 5 mg (units (unknown) date) tablet 5 mg PO DAILY unknown) #90 tabs 01/29/22 [Rx Confirmed 03/26/22] (unknown) (no (unknown) (unknown) quinapril [From (units (unknown) date) Accupril] Adverse unknown) Reaction (Intermediate, Verified 03/26/22 (unknown) (no (unknown) (unknown) read the note (units ( unknown) date) carefully and unknown) recognize, using context, where these substitutions (unknown) (no (unknown) (unknown) repair of moderate to (un its (unknown) date) large sized left unknown) hydrocele. In the interval since he (unknown) (no (unknown) (unknown) rheumatica. (units (un known) date) unknown) (unknown) (no (unknown) (unknown) right inguinal (units (unknown) date) hernia. He states that unknown ) about 5 days ago he was doing some yard (unknown) (no (unknown) (unknown) rosuvastatin 20 mg (units (unknown) date) tablet 20 mg PO DAILY unknown) 09/11/20 [History Confirmed 03/26/22] (unknown) (no (unknown) (unknown) software. Although (units (unknown) date) every effort is made unknown) to edit content, spareribs trimmer errors (unknown) (no (unknown) (unknown) then he has fashioned (un its (unknown) date) a ?homemade truss? unknown) utilizing a back brace and a rolled-up (unknown) (no (unknown) (unknown) triamcinolone (units ( unknown) date) acetonide 0.1 % unknown) topical cream 1 applic topical BID PRN 11/30/21 (unknown) (no (unknown) (unknown) wall sock! He does (units (unknown) date) have an appointment unknown) scheduled with his PCP later today. (unknown) (no (unknown) (unknown) work in physical (units (unknown) date) activities and noted unknown) gradual onset of discomfort in the right Result panel 10 (unknown) (no (unknown) (unknown) (no value) (units (unk nown) date) unknown) (unknown) (no (unknown) (unknown) (1) Left hydrocele: (unit s (unknown) date) unknown) (unknown) (no (unknown) (unknown) (2) Right inguinal (units (unknown) date) hernia: unknown) (unknown) (no (unknown) (unknown) [id number] (units (unkno wn) date) unknown) (unknown) (no (unknown) (unknown) 03/26/22 1641 (units ( unknown) date) unknown) (unknown) (no (unknown) (unknown) 03/26/22 (units (unkno wn) date) unknown) (unknown) (no (unknown) (unknown) 03/26/22] (units (unkn own) date) unknown) (unknown) (no (unknown) (unknown) 16:26) (units (unkno wn) date) unknown) (unknown) (no (unknown) (unknown) 16:27 (units (unkno wn) date) unknown) (unknown) (no (unknown) (unknown) Age/Sex: 76 / M Date (uni ts (unknown) date) of Service: unknown) (unknown) (no (unknown) (unknown) Allergies (units (unkn own) date) unknown) (unknown) (no (unknown) (unknown) [place] [address] (unit s (unknown) date) unknown) (unknown) (no (unknown) (unknown) Assessment + Plan (units (unknown) date) unknown) (unknown) (no (unknown) (unknown) Attending Dr: Genaro Groves (uni ts (unknown) date) Fernanda MARSHALL unknown) (unknown) (no (unknown) (unknown) BMI 29.2 (units (unkno wn) date) unknown) (unknown) (no (unknown) (unknown) BP 136/92 H (units (un known) date) unknown) (unknown) (no (unknown) (unknown) Blood Pressure (units (unknown) date) Location Lt brachial unknown) (unknown) (no (unknown) (unknown) Chief Complaint: (units (unknown) date) Right hernia unknown) (unknown) (no (unknown) (unknown) Constricted throat. (unit s (unknown) date) unknown) (unknown) (no (unknown) (unknown) Coronary artery (units (unknown) date) disease unknown) (unknown) (no (unknown) (unknown) : 1945 (units (unknown) date) Acct:[id number] unknown) (unknown) (no (unknown) (unknown) Dept at (units (unkno wn) date) . unknown) (unknown) (no (unknown) (unknown) Documented By: (units (unknown) date) Genaro Michael MD unknown) 03/26/22 1618 (unknown) (no (unknown) (unknown) Essential (units (unkn own) date) hypertension unknown) (unknown) (no (unknown) (unknown) Exam Narrative (units (unknown) date) unknown) (unknown) (no (unknown) (unknown) Exam Narrative: (units (unknown) date) unknown) (unknown) (no (unknown) (unknown) Exam (units (unkno wn) date) unknown) (unknown) (no (unknown) (unknown) Experiencing Pain (units (unknown) date) unknown) (unknown) (no (unknown) (unknown) [facility]) (unknown) (no (unknown) (unknown) Has a current (units ( unknown) date) homemade brace on unknown) there that is helpful. (unknown) (no (unknown) (unknown) Height 6 ft (units (un known) date) unknown) (unknown) (no (unknown) (unknown) Hypertriglyceridemia (uni ts (unknown) date) unknown) (unknown) (no (unknown) (unknown) Intake Note: (units (u nknown) date) unknown) (unknown) (no (unknown) (unknown) Intake performed by: (uni ts (unknown) date) Harika Good unknown) (unknown) (no (unknown) (unknown) Intake (units (unkno wn) date) unknown) (unknown) (no (unknown) (unknown) Intake- Clincial (units (unknown) date) Staff unknown) (unknown) (no (unknown) (unknown) Internal Medicine (units (unknown) date) Office Visit unknown) (unknown) (no (unknown) (unknown) Left hydrocele (units (unknown) date) unknown) (unknown) (no (unknown) (unknown) Loc: [facility] (units (unkno wn) date) unknown) (unknown) (no (unknown) (unknown) Male circumcision (units (unknown) date) unknown) (unknown) (no (unknown) (unknown) Medical History (units (unknown) date) (Updated 03/26/22 @ unknown) 16:40 by Genaro Michael MD) (unknown) (no (unknown) (unknown) Medications (units (un known) date) unknown) (unknown) (no (unknown) (unknown) No indication for (units (unknown) date) emergent urgent unknown) evaluation it does still spontaneously reduced (unknown) (no (unknown) (unknown) No other (units (unkno wn) date) questions/concerns. unknown) (unknown) (no (unknown) (unknown) Note (units (unkno wn) date) unknown) (unknown) (no (unknown) (unknown) Note: (units (unkno wn) date) unknown) (unknown) (no (unknown) (unknown) Notes (units (unkno wn) date) unknown) (unknown) (no (unknown) (unknown) Noticed for a few (units (unknown) date) days now. unknown) (unknown) (no (unknown) (unknown) Obvious bulging in (units (unknown) date) the right inguinal unknown) area, small hernia detected in the (unknown) (no (unknown) (unknown) Oxygen Delivery (units (unknown) date) Method room air unknown) (unknown) (no (unknown) (unknown) PFSH (units (unkno wn) date) unknown) (unknown) (no (unknown) (unknown) Patient also has a (units (unknown) date) left-sided hydrocele unknown) that urology is going to fix coming up (unknown) (no (unknown) (unknown) Patient with possible (un its (unknown) date) right inguinal hernia unknown) (unknown) (no (unknown) (unknown) Patient with right (units (unknown) date) inguinal hernia. All unknown) send him to surgery to consider options (unknown) (no (unknown) (unknown) Patient: (units (unkno wn) date) Evgeny Moore MR#: unknown) M0 (unknown) (no (unknown) (unknown) Plan (units (unkno wn) date) unknown) (unknown) (no (unknown) (unknown) Polymyalgia (units (un known) date) rheumatica unknown) (unknown) (no (unknown) (unknown) Position Sitting (units (unknown) date) unknown) (unknown) (no (unknown) (unknown) Potential Hernia - (units (unknown) date) Right Groin. unknown) (unknown) (no (unknown) (unknown) Pulse 65 (units (unkno wn) date) unknown) (unknown) (no (unknown) (unknown) Pulse Oximetry (%) 99 (un its (unknown) date) unknown) (unknown) (no (unknown) (unknown) Pulse Source Monitor (uni ts (unknown) date) unknown) (unknown) (no (unknown) (unknown) Really no pain or (units (unknown) date) discomfort with his unknown) hernia although pops out bulges in that (unknown) (no (unknown) (unknown) Reason For Visit (units (unknown) date) unknown) (unknown) (no (unknown) (unknown) Review/Discuss. 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 unknown) (unknown) (no (unknown) (unknown) Status: Acute (units ( unknown) date) unknown) (unknown) (no (unknown) (unknown) Status: Chronic (units (unknown) date) unknown) (unknown) (no (unknown) (unknown) Surgical History (units (unknown) date) (Reviewed 11/15/21 @ unknown) 08:39 by Dylan Ayala MD) (unknown) (no (unknown) (unknown) This note may have (units (unknown) date) been all or partially unknown) generated using voice recognition (unknown) (no (unknown) (unknown) Tobacco + Substance (unit s (unknown) date) Use unknown) (unknown) (no (unknown) (unknown) Tobacco Status (units (unknown) date) unknown) (unknown) (no (unknown) (unknown) Visit Reasons: Check (uni ts (unknown) date) for Right Groin unknown) [id number] (unknown) (no (unknown) (unknown) Vitals (units (unkno wn) date) unknown) (unknown) (no (unknown) (unknown) Weight 98.033 kg (units (unknown) date) unknown) (unknown) (no (unknown) (unknown) Will be doing surgery (un its (unknown) date) for a hydrocele - unknown) states to maybe get the hernia taken (unknown) (no (unknown) (unknown) [History Confirmed (units (unknown) date) 03/26/22] unknown) (unknown) (no (unknown) (unknown) amlodipine 10 mg (units (unknown) date) tablet 5 mg PO DAILY unknown) 04/06/21 [History Confirmed 03/26/22] (unknown) (no (unknown) (unknown) aspirin 81 mg (units ( unknown) date) tablet,delayed release unknown ) 81 mg PO DAILY 08/21/18 [History Confirmed (unknown) (no (unknown) (unknown) bothers him some (units (unknown) date) unknown) (unknown) (no (unknown) (unknown) but since he is (units (unknown) date) undergoing surgery unknown) anyway I would probably go ahead and get it (unknown) (no (unknown) (unknown) care of at the same (unit s (unknown) date) time. unknown) (unknown) (no (unknown) (unknown) chills (units (unkno wn) date) unknown) (unknown) (no (unknown) (unknown) chlorthalidone 25 mg (uni ts (unknown) date) tablet 6.25 mg PO unknown) DAILY 11/30/21 [History Confirmed (unknown) (no (unknown) (unknown) codeine [CODEINE] (units (unknown) date) Allergy (Mild, unknown) Verified 03/26/22 16:26) (unknown) (no (unknown) (unknown) fixed in recovery (units (unknown) date) would be similar for unknown) both, although probably a bit more (unknown) (no (unknown) (unknown) flushing (units (unkno wn) date) unknown) (unknown) (no (unknown) (unknown) for surgical repair (unit s (unknown) date) which maybe can be unknown) done the same time as his repair of his (unknown) (no (unknown) (unknown) have occurred. If (units (unknown) date) there are any unknown) questions, please contact the Medical Records (unknown) (no (unknown) (unknown) here in early (units ( unknown) date) April unknown) (unknown) (no (unknown) (unknown) hydralazine Adverse (unit s (unknown) date) Reaction (Severe, unknown) Verified 03/26/22 16:26) (unknown) (no (unknown) (unknown) hydrocele on the (units (unknown) date) other side. unknown) (unknown) (no (unknown) (unknown) inguinal canal that (unit s (unknown) date) is spontaneously unknown) reduces in the supine position (unknown) (no (unknown) (unknown) losartan 100 mg (units (unknown) date) tablet 50 mg PO DAILY unknown) 11/30/21 [History Confirmed 03/26/22] (unknown) (no (unknown) (unknown) marital status: (units (unknown) date) unknown) (unknown) (no (unknown) (unknown) may occur. Occasional (un its (unknown) date) wrong-word or unknown) 'sound-alike' substitutions may have (unknown) (no (unknown) (unknown) metoprolol tartrate (unit s (unknown) date) 25 mg tablet 25 mg PO unknown) BID 08/04/18 [History Confirmed (unknown) (no (unknown) (unknown) minoxidil Adverse (units (unknown) date) Reaction (Severe, unknown) Verified 03/26/22 16:26) (unknown) (no (unknown) (unknown) number of children: 2 (un its (unknown) date) unknown) (unknown) (no (unknown) (unknown) occurred due to the (unit s (unknown) date) inherent limitations unknown) of voice recognition software. Please (unknown) (no (unknown) (unknown) prednisone 1 mg (units (unknown) date) tablet 5 mg PO DAILY unknown) #150 tabs 01/29/22 [Rx Confirmed 03/26/22] (unknown) (no (unknown) (unknown) prednisone 5 mg (units (unknown) date) tablet 5 mg PO DAILY unknown) #90 tabs 01/29/22 [Rx Confirmed 03/26/22] (unknown) (no (unknown) (unknown) prolonged for the (units (unknown) date) hernia surgery than unknown) for the urological surgery (unknown) (no (unknown) (unknown) quinapril [From (units (unknown) date) Accupril] Adverse unknown) Reaction (Intermediate, Verified 03/26/22 (unknown) (no (unknown) (unknown) read the note (units ( unknown) date) carefully and unknown) recognize, using context, where these substitutions (unknown) (no (unknown) (unknown) rosuvastatin 20 mg (units (unknown) date) tablet 20 mg PO DAILY unknown) 09/11/20 [History Confirmed 03/26/22] (unknown) (no (unknown) (unknown) software. Although (units (unknown) date) every effort is made unknown) to edit content, spareribs trimmer errors (unknown) (no (unknown) (unknown) triamcinolone (units ( unknown) date) acetonide 0.1 % unknown) topical cream 1 applic topical BID PRN 11/30/21 Result panel 11 (unknown) (no (unknown) (unknown) (no value) (units (unk nown) date) unknown) (unknown) (no (unknown) (unknown) (1) Left hydrocele: (unit s (unknown) date) unknown) (unknown) (no (unknown) (unknown) (2) Right inguinal (units (unknown) date) hernia: unknown) (unknown) (no (unknown) (unknown) [id number] (units (unkno wn) date) unknown) (unknown) (no (unknown) (unknown) 1. Schedule LEFT (units (unknown) date) HYDROCELECTOMY/RIGHT unknown) INGUINAL HERNIA REPAIR WITH MESH. (unknown) (no (unknown) (unknown) 03/26/22 1649 (units ( unknown) date) unknown) (unknown) (no (unknown) (unknown) 03/26/22 (units (unkno wn) date) unknown) (unknown) (no (unknown) (unknown) 03/26/22] (units (unkn own) date) unknown) (unknown) (no (unknown) (unknown) 11:23 (units (unkno wn) date) unknown) (unknown) (no (unknown) (unknown) 16:26) (units (unkno wn) date) unknown) (unknown) (no (unknown) (unknown) 2. Patient will (units (unknown) date) likely benefit from unknown) stress dose corticosteroid preoperatively. (unknown) (no (unknown) (unknown) 3. Schedule right (units (unknown) date) inguinal ultrasound. unknown) (unknown) (no (unknown) (unknown) 76 y/o M presents to (uni ts (unknown) date) clinic for unknown) preoperative to schedule hydrocelectomy (unknown) (no (unknown) (unknown) Abdomen-moderately (units (unknown) date) protuberant with unknown) normal active bowel tones. Left inguinal (unknown) (no (unknown) (unknown) Age/Sex: 76 / M Date (uni ts (unknown) date) of Service: unknown) (unknown) (no (unknown) (unknown) All systems reviewed (uni ts (unknown) date) + are unremarkable unknown) except as noted in HPI and below (unknown) (no (unknown) (unknown) Allergies (units (unkn own) date) unknown) (unknown) (no (unknown) (unknown) [place], [employer] [id number] (unit s (unknown) date) unknown) (unknown) (no (unknown) (unknown) Assessment + Plan (units (unknown) date) unknown) (unknown) (no (unknown) (unknown) Attending Dr: Dylan (uni ts (unknown) date) Jamie MARSHALL unknown) (unknown) (no (unknown) (unknown) BP 158/78 H (units (un known) date) unknown) (unknown) (no (unknown) (unknown) Blood Pressure (units (unknown) date) Location Lt brachial unknown) (unknown) (no (unknown) (unknown) Chest-equal and (units (unknown) date) unlabored expansion unknown) bilaterally. (unknown) (no (unknown) (unknown) Chief Complaint (units (unknown) date) unknown) (unknown) (no (unknown) (unknown) Chief Complaint: Left (un its (unknown) date) hydrocele unknown) (unknown) (no (unknown) (unknown) Code(s): (units (unkno wn) date) unknown) (unknown) (no (unknown) (unknown) Const (units (unkno wn) date) unknown) (unknown) (no (unknown) (unknown) Constricted throat. (unit s (unknown) date) unknown) (unknown) (no (unknown) (unknown) Coronary artery (units (unknown) date) disease unknown) (unknown) (no (unknown) (unknown) : 1945 (units (unknown) date) Acct:[id number] unknown) (unknown) (no (unknown) (unknown) Dept at (units (unkno wn) date) . unknown) (unknown) (no (unknown) (unknown) Details: (units (unkno wn) date) unknown) (unknown) (no (unknown) (unknown) Documented By: (units (unknown) date) Dylan Ayala MD unknown) 03/26/22 1117 (unknown) (no (unknown) (unknown) Encounter (units (unkn own) date) documentation, unknown) coordination of surgical scheduling, and billing-10 (unknown) (no (unknown) (unknown) Essential (units (unkn own) date) hypertension unknown) (unknown) (no (unknown) (unknown) Exam Narrative (units (unknown) date) unknown) (unknown) (no (unknown) (unknown) Exam Narrative: (units (unknown) date) unknown) (unknown) (no (unknown) (unknown) Exam (units (unkno wn) date) unknown) (unknown) (no (unknown) (unknown) Explained the common (uni ts (unknown) date) side effects, possible unknown ) complications, perioperative (unknown) (no (unknown) (unknown) External (units (unkno wn) date) genitalia-scrotum is unknown) without lesion, rash, or mass. The right testicle (unknown) (no (unknown) (unknown) [id number] (units (u nknown) date) encounter-45 minutes unknown) (unknown) (no (unknown) (unknown) HPI (units (unkno wn) date) unknown) (unknown) (no (unknown) (unknown) He is a (units (unkno wn) date) well-developed, mildly unknown ) over nourished fellow in no acute distress today. (unknown) (no (unknown) (unknown) He otherwise denies (unit s (unknown) date) interval new unknown) complaints. He continues to be on a tapered (unknown) (no (unknown) (unknown) Head/neck-sclera (units (unknown) date) clear pupils are round unknown ) and equal. Neck is without adenopathy (unknown) (no (unknown) (unknown) Heart-normal sinus (units (unknown) date) rhythm. unknown) (unknown) (no (unknown) (unknown) Hypertriglyceridemia (uni ts (unknown) date) unknown) (unknown) (no (unknown) (unknown) I encouraged him to (units (unknown) date) keep his appointment unknown) with his PCP and have the discussion as (unknown) (no (unknown) (unknown) In the interval (units (unknown) date) between scheduling and unknown ) today's encounter he developed a (unknown) (no (unknown) (unknown) Intake Note: (units (u nknown) date) unknown) (unknown) (no (unknown) (unknown) Intake performed by: (uni ts (unknown) date) Odalis Higgins unknown) (unknown) (no (unknown) (unknown) Intake (units (unkno wn) date) unknown) (unknown) (no (unknown) (unknown) Intake- Clincial (units (unknown) date) Staff unknown) (unknown) (no (unknown) (unknown) [facility] (units (unknown) date) unknown) (unknown) (no (unknown) (unknown) K40.90 - Unilateral (unit s (unknown) date) inguinal hernia, unknown) without obstruction or gangrene, not (unknown) (no (unknown) (unknown) Left hydrocele (units (unknown) date) unknown) (unknown) (no (unknown) (unknown) Loc: [facility] (units (unkno wn) date) unknown) (unknown) (no (unknown) (unknown) Male circumcision (units (unknown) date) unknown) (unknown) (no (unknown) (unknown) Medical History (units (unknown) date) (Reviewed 03/26/22 @ unknown) 16:41 by yDlan Ayala MD) (unknown) (no (unknown) (unknown) Medical illustrations (un its (unknown) date) and line diagrams were unknown ) utilized to facilitate the (unknown) (no (unknown) (unknown) Medications (units (un known) date) unknown) (unknown) (no (unknown) (unknown) N43.3 - Hydrocele, (units (unknown) date) unspecified unknown) (unknown) (no (unknown) (unknown) Oxygen Delivery (units (unknown) date) Method room air unknown) (unknown) (no (unknown) (unknown) PFSH (units (unkno wn) date) unknown) (unknown) (no (unknown) (unknown) Patient: (units (unkno wn) date) Evgeny Moore MR#: unknown) M0 (unknown) (no (unknown) (unknown) Plan (units (unkno wn) date) unknown) (unknown) (no (unknown) (unknown) Polymyalgia (units (un known) date) rheumatica unknown) (unknown) (no (unknown) (unknown) Position Sitting (units (unknown) date) unknown) (unknown) (no (unknown) (unknown) Pulse 52 L (units (unk nown) date) unknown) (unknown) (no (unknown) (unknown) Pulse Oximetry (%) 99 (un its (unknown) date) unknown) (unknown) (no (unknown) (unknown) Pulse Source Monitor (uni ts (unknown) date) unknown) (unknown) (no (unknown) (unknown) ROS (units (unkno wn) date) unknown) (unknown) (no (unknown) (unknown) Reason For Visit (units (unknown) date) unknown) (unknown) (no (unknown) (unknown) Respiration 16 (units (unknown) date) unknown) (unknown) (no (unknown) (unknown) Review of clinical (units (unknown) date) chart note history, unknown) imaging library, for encounter 5 minutes (unknown) (no (unknown) (unknown) Reviewed findings, (units (unknown) date) discussed impression, unknown) discussed options, and plan. 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 unknown) (unknown) (no (unknown) (unknown) Status: Acute (units ( unknown) date) unknown) (unknown) (no (unknown) (unknown) Status: Chronic (units (unknown) date) unknown) (unknown) (no (unknown) (unknown) Surgical History (units (unknown) date) (Reviewed 03/26/22 @ unknown) 16:41 by Dylan Ayala MD) (unknown) (no (unknown) (unknown) This note may have (units (unknown) date) been all or partially unknown) generated using voice recognition (unknown) (no (unknown) (unknown) Tobacco Status (units (unknown) date) unknown) (unknown) (no (unknown) (unknown) Yan is a 76-year-old (unit s (unknown) date) male unknown) presenting today with request for definitive (unknown) (no (unknown) (unknown) Urology Office Visit (uni ts (unknown) date) unknown) (unknown) (no (unknown) (unknown) Visit Reasons: pre-op (un its (unknown) date) to schedule unknown) hydrocelectomy (unknown) (no (unknown) (unknown) Vitals (units (unkno wn) date) unknown) (unknown) (no (unknown) (unknown) [History Confirmed (units (unknown) date) 03/26/22] unknown) (unknown) (no (unknown) (unknown) amlodipine 10 mg (units (unknown) date) tablet 5 mg PO DAILY unknown) 04/06/21 [History Confirmed 03/26/22] (unknown) (no (unknown) (unknown) aspirin 81 mg (units ( unknown) date) tablet,delayed release unknown ) 81 mg PO DAILY 08/21/18 [History Confirmed (unknown) (no (unknown) (unknown) ay occur. Occasional (uni ts (unknown) date) wrong-word or unknown) 'sound-alike' substitutions may have (unknown) (no (unknown) (unknown) canal is well (units ( unknown) date) supported. There is a unknown) moderate sized, mildly tender right (unknown) (no (unknown) (unknown) chills (units (unkno wn) date) unknown) (unknown) (no (unknown) (unknown) chlorthalidone 25 mg (uni ts (unknown) date) tablet 6.25 mg PO unknown) DAILY 11/30/21 [History Confirmed (unknown) (no (unknown) (unknown) clarifying questions (uni ts (unknown) date) and concerns. unknown) (unknown) (no (unknown) (unknown) codeine [CODEINE] (units (unknown) date) Allergy (Mild, unknown) Verified 03/26/22 16:26) (unknown) (no (unknown) (unknown) collection (units (unk nown) date) surrounding the left unknown) scrotal contents. (unknown) (no (unknown) (unknown) contacted [facility] (units (unknown) date) Urology in scheduled unknown) appointment he is developed a symptomatic (unknown) (no (unknown) (unknown) desires a general (units (unknown) date) surgical referral and unknown) performance of inguinal hernia, that (unknown) (no (unknown) (unknown) discussion and (units (unknown) date) informed consent. unknown) Specifics of drain management were carefully (unknown) (no (unknown) (unknown) dose of prednisone, (unit s (unknown) date) currently 8 mg per day unknown ) for treatment of polymyalgia (unknown) (no (unknown) (unknown) explained with line (unit s (unknown) date) diagrams unknown) illustrations. The patient had few additional (unknown) (no (unknown) (unknown) familiar uncommonly (unit s (unknown) date) repair inguinal unknown) hernias. However, if the patient or his PCP (unknown) (no (unknown) (unknown) flushing (units (unkno wn) date) unknown) (unknown) (no (unknown) (unknown) following left (units (unknown) date) hydrocelectomy, and of unknown ) right inguinal hernia repair with mesh. (unknown) (no (unknown) (unknown) have occurred. If (units (unknown) date) there are any unknown) questions, please contact the Medical Records (unknown) (no (unknown) (unknown) hydralazine Adverse (unit s (unknown) date) Reaction (Severe, unknown) Verified 03/26/22 16:26) (unknown) (no (unknown) (unknown) inguinal hernia that (uni ts (unknown) date) is reducible. unknown) (unknown) (no (unknown) (unknown) inguinal region. He (unit s (unknown) date) examined himself in unknown) surmised that was the hernia. Since (unknown) (no (unknown) (unknown) is palpable as (units (unknown) date) before. There is a unknown) moderate-sized, firm and mildly tender fluid (unknown) (no (unknown) (unknown) limitations/restricti (un its (unknown) date) ons, and reasonable unknown) expectations of outcomes and recovery (unknown) (no (unknown) (unknown) losartan 100 mg (units (unknown) date) tablet 50 mg PO DAILY unknown) 11/30/21 [History Confirmed 03/26/22] (unknown) (no (unknown) (unknown) marital status: (units (unknown) date) unknown) (unknown) (no (unknown) (unknown) metoprolol tartrate (unit s (unknown) date) 25 mg tablet 25 mg PO unknown) BID 08/04/18 [History Confirmed (unknown) (no (unknown) (unknown) minoxidil Adverse (units (unknown) date) Reaction (Severe, unknown) Verified 03/26/22 16:26) (unknown) (no (unknown) (unknown) minutes (units (unkno wn) date) unknown) (unknown) (no (unknown) (unknown) normal activities. (units (unknown) date) unknown) (unknown) (no (unknown) (unknown) number of children: 2 (un its (unknown) date) unknown) (unknown) (no (unknown) (unknown) occurred due to the (unit s (unknown) date) inherent limitations unknown) of voice recognition software. Please (unknown) (no (unknown) (unknown) or JVD. (units (unkno wn) date) unknown) (unknown) (no (unknown) (unknown) outlined above. (units (unknown) date) unknown) (unknown) (no (unknown) (unknown) prednisone 1 mg (units (unknown) date) tablet 5 mg PO DAILY unknown) #150 tabs 01/29/22 [Rx Confirmed 03/26/22] (unknown) (no (unknown) (unknown) prednisone 5 mg (units (unknown) date) tablet 5 mg PO DAILY unknown) #90 tabs 01/29/22 [Rx Confirmed 03/26/22] (unknown) (no (unknown) (unknown) procedures at the (units (unknown) date) same time so that unknown) recoveries may overlap and speed return to (unknown) (no (unknown) (unknown) quinapril [From (units (unknown) date) Accupril] Adverse unknown) Reaction (Intermediate, Verified 03/26/22 (unknown) (no (unknown) (unknown) read the note (units ( unknown) date) carefully and unknown) recognize, using context, where these substitutions (unknown) (no (unknown) (unknown) repair of moderate to (un its (unknown) date) large sized left unknown) hydrocele. In the interval since he (unknown) (no (unknown) (unknown) request can be (units (unknown) date) accommodated but will unknown) require create of coordination of (unknown) (no (unknown) (unknown) rheumatica. (units (un known) date) unknown) (unknown) (no (unknown) (unknown) right inguinal (units (unknown) date) hernia. He states that unknown ) about 5 days ago he was doing some yard (unknown) (no (unknown) (unknown) rosuvastatin 20 mg (units (unknown) date) tablet 20 mg PO DAILY unknown) 09/11/20 [History Confirmed 03/26/22] (unknown) (no (unknown) (unknown) schedule the (units (u nknown) date) appointment with unknown) intent for definitive repair of left hydrocele. (unknown) (no (unknown) (unknown) scheduling. Explained (un its (unknown) date) to the patient that it unknown ) makes most sense to undergo both (unknown) (no (unknown) (unknown) software. Although (units (unknown) date) every effort is made unknown) to edit content, spareribs trimmer errors m (unknown) (no (unknown) (unknown) specified as (units (u nknown) date) recurrent unknown) (unknown) (no (unknown) (unknown) symptomatic right (units (unknown) date) inguinal hernia. I unknown) informed the patient that I am very (unknown) (no (unknown) (unknown) then he has fashioned (un its (unknown) date) a ?homemade truss? unknown) utilizing a back brace and a rolled-up (unknown) (no (unknown) (unknown) triamcinolone (units ( unknown) date) acetonide 0.1 % unknown) topical cream 1 applic topical BID PRN 11/30/21 (unknown) (no (unknown) (unknown) wall sock! He does (units (unknown) date) have an appointment unknown) scheduled with his PCP later today. (unknown) (no (unknown) (unknown) work in physical (units (unknown) date) activities and noted unknown) gradual onset of discomfort in the right Social History No information. Vital Signs No information.
[2022-04-09] MEDS ORDERED: KETOROLAC 15 MG/ML VIAL IVP STA (05:15)
[2022-04-09] MEDS ORDERED: MINERAL OIL ENEMA 133 ML BOTTLE RC STA (05:16)
--- NOTE | 2022-04-09 05:42 | ED Physician Documentation ---
History of Present Illness - Stated complaint Stated Complaint: ABD PX - Chief complaint Chief Complaint: Abd Pain - History obtained from History obtained from: Patient, Family () - Additonal information Additional information: 76yM with PMH R inguinal hernia p/w constipation for the past few days, with LUQ abdominal pain during that time period, cramping quality, radiating diffusely to whole abdomen. patient had small BM this AM after taking a laxative medication. Review of Systems Ten Systems: 10 systems reviewed and negative Constitutional: denies: Fever, Chills Cardiac: denies: Chest pain / pressure Respiratory: denies: Dyspnea GI: reports: Abdominal Pain, Constipation. denies: Nausea, Vomiting, Diarrhea, Bloody / black stool : denies: Dysuria, Frequency, Hesitancy, Hematuria Musculoskeletal: denies: Back pain PD PAST MEDICAL HISTORY - Past Medical History Past Medical History: Yes Cardiovascular: Hypertension, High cholesterol Respiratory: None Endocrine/Autoimmune: None GI: None : None HEENT: None Psych: None Musculoskeletal: None Derm: None - Past Surgical History Past Surgical History: Yes Cardiovascular: CABG HEENT: Other - Present Medications Home Medications: Ambulatory Orders Medication Instructions Recorded Confirmed Aspirin 0.5 tab PO DAILY 09/30/16 08/26/18 Gibson-3/Dha/Epa/Fish Oil [Fish Oil 1 each PO DAILY 09/30/16 08/26/18 1,000 mg Softgel] Potassium Chloride [K-Dur] 20 meq PO DAILY 09/30/16 08/26/18 Rosuvastatin Calcium [Crestor] 10 mg PO DAILY 09/30/16 08/26/18 Clopidogrel [Plavix] 1 tab PO DAILY 08/04/18 08/26/18 Metoprolol Tartrate [Lopressor] 1 tab PO DAILY 08/04/18 08/26/18 Amlodipine Besylate [Norvasc] 10 mg PO 08/26/18 Chlorthalidone 25 mg PO DAILY 08/26/18 08/26/18 Isosorbide Mononitrate ER [Imdur] 30 mg PO DAILY 08/26/18 08/26/18 predniSONE [Deltasone] 40 mg PO DAILY 5 Days tablet 08/26/18 Sennosides/Docusate Sodium 1 each PO QDAC PRN #30 tablet 04/09/22 [Senna-Docusate Sodium Tablet] polyethylene glycoL 3350 [Miralax] 17 gm PO DAILY PRN #30 packet 04/09/22 - Allergies Allergies/Adverse Reactions: Allergies Allergy/AdvReac Type Severity Reaction Status Date / Time hydralazine Allergy Itching Verified 04/09/22 04:49 quinapril [From Accupril] Allergy Itching Verified 04/09/22 04:49 codeine AdvReac Diaphoresis Verified 04/09/22 04:49 - Social History Does the pt smoke?: No Smoking Status: Never smoker Does the pt drink ETOH?: Yes Does the pt have substance abuse?: No - Immunizations Immunizations are current?: Yes - POLST Patient has POLST: No PD ED PE NORMAL - Vitals Vital signs reviewed: Yes - General General: Alert and oriented X 3, No acute distress, Well developed/nourished - HEENT HEENT: Atraumatic, PERRL, EOMI, Moist mucous membranes - Neck Neck: Supple, no meningeal sign - Cardiac Cardiac: RRR - Respiratory Respiratory: No respiratory distress, Clear bilaterally - Abdomen Abdomen: Non tender, Non distended, Other (discomfort diffusely to palpation. abdomen ntnd) - Male Male : Other (no palpable hernia on exam) - Rectal Rectal: Other (no external hemorrhoids.) - Back Back: No CVA TTP - Derm Derm: Normal color, Warm and dry - Extremities Extremities: No deformity - Neuro Neuro: Alert and oriented X 3, No motor deficit, No sensory deficit - Psych Psych: Normal mood, Normal affect Results - Vitals Vitals: Vital Signs - 24 hr 04/09/22 04:45 Temperature 36.4 C L Heart Rate 78 Respiratory 18 Rate Blood Pressure 172/75 H O2 Saturation 95 Oxygen O2 Source Room air - Labs Labs: Laboratory Tests 04/09/22 04/09/22 05:04 05:04 WBC 13.2 H RBC 4.56 L Hgb 14.0 Hct 42.0 MCV 92.1 MCH 30.7 MCHC 33.3 RDW 12.5 Plt Count 194 MPV 10.6 Neut # (Auto) Not Reportable Lymph # (Auto) Not Reportable [place] # (Auto) Not Reportable Eos # (Auto) Not Reportable Baso # (Auto) Not Reportable Absolute Nucleated RBC Not Reportable Total Counted 100 Band Neuts % (Manual) 1 Abnorm Lymph % (Manual) 0 Nucleated RBC % Not Reportable Neutrophils # (Manual) 9.8 H Lymphocytes # (Manual) 2.1 Monocytes # (Manual) 1.1 H Eosinophils # (Manual) 0.3 Basophils # (Manual) 0.0 Differential Comment MANUAL DIFFERENTIAL WBC Morphology NORMAL APPEARANCE Platelet Estimate NORMAL (130-450,000) Platelet Morphology NORMAL APPEARANCE RBC Morph Micro Appear NORMAL APPEARANCE Sodium 136 Potassium 3.7 Chloride 102 Carbon Dioxide 25 Anion Gap 9.0 BUN 27 H Creatinine 1.3 H Estimated GFR (MDRD) 54 L Glucose 90 Calcium 9.0 Total Bilirubin 1.2 H AST 18 ALT 14 Alkaline Phosphatase 68 Total Protein 6.9 Albumin 4.0 Globulin 2.9 Albumin/Globulin Ratio 1.4 Lipase 50 PD MEDICAL DECISION MAKING - ED course ED course: 76yM presents c/o constipation and pain at his hernia site when trying to have a bowel movement. fleet enema provided without relief. patient's pain improved to 3/10 s/p toradol. rectal disimpaction attempted with small amount of brown stool found to be in rectal vault. discussed patient's leukocytosis with him and and a shared decision was made to send home with bowel regimen and strict return precautions. Departure - Departure Disposition: Home, Self Care Clinical Impression: Constipation, Abdominal pain Condition: Good Instructions: ED Constipation, Abdominal Pain Prescriptions: polyethylene glycoL 3350 [Miralax] 17 gm PO DAILY PRN #30 packet PRN Reason: Constipation Sennosides/Docusate Sodium [Senna-Docusate Sodium Tablet] 1 each PO QDAC PRN #30 tablet PRN Reason: Constipation
[2022-04-09 05:46] LABS: BASOPHILS % (AUTO) 0.2 %; EOSINOPHILS % (AUTO) 0.6 %; MEAN CORPUSCULAR HEMOGLOBIN 30.7 pg (27.0-31.0); MEAN CORPUSCULAR HGB CONC 33.3 g/dL (32.0-36.0); MEAN CORPUSCULAR VOLUME 92.1 fL (80.0-94.0); MEAN PLATELET VOLUME 10.6 fL (7.4-11.4); MONOCYTES % (AUTO) 12.3 %; NEUTROPHILS % (AUTO) 73.6 %; PLT - PLATELET COUNT 194 10^3/uL (130-450); RED BLOOD COUNT 4.56 10^6/uL (4.70-6.10); RED CELL DISTRIBUTION WIDTH 12.5 % (12.0-15.0); WHITE BLOOD COUNT 13.2 x10^3/uL (4.8-10.8)
[2022-04-09 05:55] LABS: ALBUMIN/GLOBULIN RATIO 1.4 (1.0-2.2); BILIRUBIN,TOTAL 1.2 mg/dL (0.2-1.0); CREATININE 1.3 mg/dL (0.6-1.2); POTASSIUM 3.7 mmol/L (3.5-5.0); TOTAL PROTEIN 6.9 g/dL (6.7-8.2)
[2022-04-09 06:02] LABS: ABNORMAL LYMPHS % (MANUAL) 0 %
[2022-04-09 06:04] LABS: BAND NEUTROPHILS % (MANUAL) 1 %; DIFFERENTIAL COMMENT MANUAL DIFFERENTIAL; EOSINOPHILS # (MANUAL) 0.3 10^3/uL (0-0.7); LYMPHOCYTES # (MANUAL) 2.1 10^3/uL (1.5-3.5); LYMPHOCYTES % (MANUAL) 16 %; MONOCYTES # (MANUAL) 1.1 10^3/uL (0.0-1.0); NEUTROPHILS # (MANUAL) 9.8 10^3/uL (1.5-6.6); PLATELET ESTIMATE, MANUAL NORMAL (130-450,000) (NORMAL); PLATELET MORPHOLOGY NORMAL APPEARANCE (NORMAL); RBC MORPHOLOGY (MULTIPLE) NORMAL APPEARANCE (NORMAL); WBC MORPHOLOGY (MULTIPLE) NORMAL APPEARANCE (NORMAL)
[2022-04-09 06:58] VITALS: BP 148/72
== END 2022-04-09 06:56 | disposition home or self-care (01) ==
LOC: ED 04:37
DX: K59.00 Constipation, unspecified (principal); R10.9 Unspecified abdominal pain; K40.90 Unilateral inguinal hernia, without obstruction or gangrene, not specified as recurrent
CPT/HCPCS: 36415; 80053; 83690; 85025; 96374; 99283; A9270

== ENCOUNTER 2022-04-17 15:45 | Outpatient (CLI) | payer MEDICARE ==
--- NOTE | 2022-04-18 14:03 | Ultrasound Report ---
PROCEDURE: Pelvic Limited or F/U INDICATIONS: INGUINAL HERNIA TECHNIQUE: Real-time transabdominal scanning was performed of the inguinal regions to assess for inguinal hernia . COMPARISON: None. FINDINGS: There is a reducible right inguinal hernia containing bowel and adjacent fat/mesentery. The fascial d efect measures approximately 1.4 cm. The hernia sac measures up to 3.0 x 5.1 x 8.3 cm. IMPRESSION: Reducible right inguinal hernia with fascial defect/neck measuring 1.4 cm and hernia sac measuring 3.0 x 5.1 x 8.3 cm. Reviewed by: Usman Diehl MD on 04/18/2022 2:01 PM PDT Approved by: Usman Diehl MD on 04/18/2022 2:01 PM PDT Station ID: [id number]
== END 2022-04-17 15:46 | disposition home or self-care (01) ==
LOC: DI 15:45
PROVIDERS: ATTEND Specialist
DX: K40.90 Unilateral inguinal hernia, without obstruction or gangrene, not specified as recurrent (principal)

== ENCOUNTER 2023-02-27 08:24 | Outpatient (CLI) | payer MEDICARE ==
[2023-02-27 08:40] LABS: BASOPHILS # (AUTO) 0.1 10^3/uL (0.0-0.1); BASOPHILS % (AUTO) 0.7 %; EOSINOPHILS # (AUTO) 0.2 10^3/uL (0.0-0.7); EOSINOPHILS % (AUTO) 2.3 %; LYMPHOCYTES # (AUTO) 2.2 10^3/uL (1.5-3.5); LYMPHOCYTES % (AUTO) 25.7 %; MEAN CORPUSCULAR HEMOGLOBIN 31.3 pg (27.0-31.0); MEAN CORPUSCULAR HGB CONC 33.3 g/dL (32.0-36.0); MEAN CORPUSCULAR VOLUME 93.8 fL (80.0-94.0); MEAN PLATELET VOLUME 9.5 fL (7.4-11.4); MONOCYTES # (AUTO) 0.9 10^3/uL (0.0-1.0); MONOCYTES % (AUTO) 10.4 %; NEUTROPHILS # (AUTO) 5.1 10^3/uL (1.5-6.6); NEUTROPHILS % (AUTO) 60.3 %; PLT - PLATELET COUNT 208 10^3/uL (130-450); RED BLOOD COUNT 4.48 10^6/uL (4.70-6.10); RED CELL DISTRIBUTION WIDTH 13.1 % (12.0-15.0); WHITE BLOOD COUNT 8.4 x10^3/uL (4.8-10.8)
[2023-02-27 08:54] LABS: BUN - BLOOD UREA NITROGEN 32 mg/dL (6-20); CALCIUM 9.3 mg/dL (8.5-10.3); CARBON DIOXIDE - CO2 27 mmol/L (21-32); CHLORIDE 105 mmol/L (101-111); CHOL/HDL RATIO 2.4 (<5.0); CHOLESTEROL 134 mg/dL; CREATININE 1.3 mg/dL (0.6-1.3); GFR - MDRD 54 (>89); GLUCOSE 85 mg/dL (74-104); HDL CHOLESTEROL 56 mg/dL; LDL CHOLESTEROL,CALCULATED 50 mg/dL; LDL/HDL RATIO 0.9 (<3.6); POTASSIUM 3.8 mmol/L (3.5-4.5); SODIUM 137 mmol/L (135-145); TRIGLYCERIDES 138 mg/dL (48-352); VLDL CHOLESTEROL 28 mg/dL
== END 2023-02-27 08:25 | disposition home or self-care (01) ==
LOC: LAB 08:24
PROVIDERS: ATTEND Internal Medicine Cardiovascular Disease
DX: I10 Essential (primary) hypertension (principal); E78.5 Hyperlipidemia, unspecified
CPT/HCPCS: 36415; 80048; 80061; 83721; 85025

== ENCOUNTER 2023-11-04 00:20 | Day surgery (SDC) | payer MEDICARE ==
[2023-11-04 01:07] LABS: BASOPHILS % (AUTO) 0.3 %; EOSINOPHILS # (AUTO) 0.1 10^3/uL (0.0-0.7); HCT - HEMATOCRIT 42.5 % (42.0-52.0); HGB - HEMOGLOBIN 13.6 g/dL (14.0-18.0); LYMPHOCYTES # (AUTO) 2.3 10^3/uL (1.5-3.5); LYMPHOCYTES % (AUTO) 17.3 %; MEAN CORPUSCULAR HEMOGLOBIN 30.2 pg (27.0-31.0); MEAN CORPUSCULAR VOLUME 94.4 fL (80.0-94.0); MEAN PLATELET VOLUME 9.8 fL (7.4-11.4); MONOCYTES # (AUTO) 1.1 10^3/uL (0.0-1.0); MONOCYTES % (AUTO) 7.9 %; NEUTROPHILS # (AUTO) 9.8 10^3/uL (1.5-6.6); NEUTROPHILS % (AUTO) 72.7 %; PLT - PLATELET COUNT 235 10^3/uL (130-450); RED CELL DISTRIBUTION WIDTH 12.4 % (12.0-15.0); WHITE BLOOD COUNT 13.5 x10^3/uL (4.8-10.8)
[2023-11-04 01:24] LABS: TROPONIN I HIGH SENSITIVITY 13.3 ng/L (2.3-19.7)
[2023-11-04 01:27] LABS: ALBUMIN 4.3 g/dL (3.2-5.5); ALBUMIN/GLOBULIN RATIO 1.6 (1.0-2.2); BILIRUBIN,TOTAL 0.6 mg/dL (0.2-1.0); CALCIUM 9.5 mg/dL (8.5-10.3); CREATININE 1.4 mg/dL (0.6-1.3); POTASSIUM 3.7 mmol/L (3.5-4.5)
[2023-11-04] MEDS ORDERED: iohexoL-300 100 ML VIAL ONE (02:31)
[2023-11-04] MEDS: iohexoL-300 100 ML VIAL IVP ONE (03:23)
[2023-11-04] MEDS: SODIUM CHLORIDE 0.9% 1,000 ML IV STA (04:49)
[2023-11-04] MEDS: HYDROmorphone 1 MG/ML CARPUJECT IVP STA (04:55)
--- NOTE | 2023-11-04 06:42 | ED Physician Documentation ---
History of Present Illness - Stated complaint Stated Complaint: ABD PX/BACK PX/HIGH BP - Chief complaint Chief Complaint: Abd Pain - History obtained from History obtained from: Patient - Additonal information Additional information: The patient is brought to the emergency department by EMS for chief complaint of abdominal pain and back pain. He states it started after he ate and he noticed a band of pain across his mid abdomen stretching from the right to the left side. He states that as time went on, it moved to his back and has been centered there since. He had some nausea but no vomiting. The patient states this is never happened to him before. He is not known to have any abdominal pathology. He denies feeling ill recently. No diarrhea. No fevers. No dysuria. He still has his gallbladder. No other complaints at this time. PD PAST MEDICAL HISTORY - Past Medical History Past Medical History: Yes Cardiovascular: Hypertension, High cholesterol Respiratory: None Endocrine/Autoimmune: None GI: None : None HEENT: None Psych: None Musculoskeletal: None Derm: None - Past Surgical History Past Surgical History: Yes Cardiovascular: CABG HEENT: Other - Present Medications Home Medications: Ambulatory Orders Medication Instructions Recorded Confirmed Aspirin 0.5 tab PO DAILY 09/30/16 11/04/23 Rosuvastatin Calcium [Crestor] 10 mg PO DAILY 09/30/16 11/04/23 Metoprolol Tartrate [Lopressor] 25 mg PO BID 08/04/18 11/04/23 Amlodipine Besylate [Norvasc] 5 mg PO DAILY 08/26/18 11/04/23 polyethylene glycoL 3350 [Miralax] 17 gm PO DAILY PRN #30 packet 04/09/22 11/04/23 Docusate Sodium 250Mg Capsule 250 mg PO DAILY #20 cap 11/04/23 [Colace 250Mg Capsule] HYDROcod/ACETAM 5/325 [[place] 5/325] 1 each PO Q4H PRN #8 tablet 11/04/23 Losartan [Cozaar] 1 tab PO DAILY 11/04/23 11/04/23 predniSONE [Prednisone] 7.5 mg PO DAILY 11/04/23 11/04/23 - Allergies Allergies/Adverse Reactions: Allergies Allergy/AdvReac Type Severity Reaction Status Date / Time hydralazine Allergy Itching Verified 11/04/23 00:38 quinapril [From Accupril] Allergy Itching Verified 11/04/23 00:38 codeine AdvReac Diaphoresis Verified 11/04/23 00:38 - Social History Does the pt smoke?: No Smoking Status: Never smoker Does the pt drink ETOH?: Yes Does the pt have substance abuse?: No - Immunizations Immunizations are current?: Yes - POLST Patient has POLST: No PD ED PE NORMAL - Vitals Vital signs reviewed: Yes - General General: Alert and oriented X 3, No acute distress, Well developed/nourished - HEENT HEENT: Atraumatic, PERRL, EOMI, Moist mucous membranes - Neck Neck: Supple, no meningeal sign - Cardiac Cardiac: RRR, No murmur - Respiratory Respiratory: No respiratory distress, Clear bilaterally - Abdomen Abdomen: Soft, Non distended, Other (Diffuse mild tenderness across mid abdomen, no rebound or guarding.) - Derm Derm: Normal color, Warm and dry, No rash - Extremities Extremities: No deformity, No edema - Neuro Neuro: Alert and oriented X 3, Other (Grossly intact.) - Psych Psych: Normal mood, Normal affect Results - Vitals Vitals: Vital Signs - 24 hr 11/04/23 11/04/23 11/04/23 08:00 10:00 10:10 Temperature Heart Rate 76 79 Respiratory 18 16 Rate Blood Pressure 184/94 H 124/94 H O2 Saturation 91 L 89 L 94 If not protocol 2 1 : Oxygen Flow, liters/minute 11/04/23 11/04/23 11/04/23 13:54 14:00 14:05 Temperature 39.9 C H Heart Rate 68 73 63 Respiratory 20 21 17 Rate Blood Pressure 177/73 H 170/71 H 157/79 H O2 Saturation 97 97 97 If not protocol : Oxygen Flow, liters/minute 11/04/23 11/04/23 11/04/23 14:10 14:15 14:30 Temperature Heart Rate 58 L 65 61 Respiratory 18 13 16 Rate Blood Pressure 155/80 H 147/71 H 145/76 H O2 Saturation 97 97 93 If not protocol : Oxygen Flow, liters/minute 11/04/23 11/04/23 11/04/23 14:45 15:00 15:17 Temperature 36.7 C 36.7 C Heart Rate 57 L 55 L 53 L Respiratory 20 14 16 Rate Blood Pressure 140/68 H 143/67 H 143/63 H O2 Saturation 94 92 95 If not protocol : Oxygen Flow, liters/minute 11/04/23 15:35 Temperature Heart Rate 59 L Respiratory 16 Rate Blood Pressure 146/66 H O2 Saturation 92 If not protocol : Oxygen Flow, liters/minute Oxygen O2 Source Nasal cannula - Labs Labs: Laboratory Tests 11/04/23 11/04/23 11/04/23 00:59 00:59 10:35 WBC 13.5 H RBC 4.50 L Hgb 13.6 L Hct 42.5 MCV 94.4 H MCH 30.2 MCHC 32.0 RDW 12.4 Plt Count 235 MPV 9.8 Neut # (Auto) 9.8 H Lymph # (Auto) 2.3 [place] # (Auto) 1.1 H Eos # (Auto) 0.1 Baso # (Auto) 0.0 Absolute Nucleated RBC 0.00 Nucleated RBC % 0.0 Sodium 142 Potassium 3.7 Chloride 108 Carbon Dioxide 24 Anion Gap 10.0 BUN 36 H Creatinine 1.4 H Estimated GFR (MDRD) 49 L Glucose 120 H Calcium 9.5 Total Bilirubin 0.6 AST 18 ALT 14 Alkaline Phosphatase 66 Troponin I High Sens 13.3 Total Protein 7.0 Albumin 4.3 Globulin 2.7 Albumin/Globulin Ratio 1.6 SARS-CoV-2 (PCR) NOT DETECTED - Rads (name of study) CT abdomen pelvis Relevant Findings:: Final report received, See rad report (Distended gallbladder with cholelithiasis.) Ultrasound of abdomen Relevant Findings:: Final report received, See rad report (Large stone lodged in neck of gallbladder with gallbladder wall thickening) PD Medical Decision Making - ED course Complexity details: reviewed results, re-evaluated patient, considered differential, d/w patient ED course: The patient was worked up with labs, as well as CT scan of the abdomen and pelvis and ultimately, ultrasound of the right upper quadrant. Labs were unremarkable including normal LFTs, except for leukocytosis at 13.5. The patient's CT showed concern for possible cholecystitis with a large obstructing stone in some possible wall thickening. Ultrasound was recommended but this was done and did show a large stone obstructing the neck of the gallbladder and gallbladder wall thickening. The patient had required a few doses of analgesia and I spoke with Dr. Gottlieb who is on-call for surgery regarding the case. He stated that he could come and perform a cholecystectomy on the patient, who is agreeable to the plan. Departure - Departure Disposition: ED Transfer to [facility] Clinical Impression: Cholecystitis Condition: Serious Discharge Date/Time: 11/04/23 12:02
--- NOTE | 2023-11-04 08:00 | Ultrasound Report ---
PROCEDURE: Abdomen Limited INDICATIONS: RUQ pn, gallstones ? obstructing on CT TECHNIQUE: Real-time focused scanning was performed of the abdomen, with image documentation. COMPARISONS: None. FINDINGS: Liver measures 15 cm. Echotexture is heterogeneous. There is minimal gallbladder wall thickening at 3 to 4 mm. Cholelithiasis is present. There is a stone at the neck. No discrete focal tenderness. Gall bladder is distended. Biliary tree and pancreas were not imaged, due to bowel gas and body habitus. IMPRESSION: Stone at the gallbladder neck with wall thickening and gallbladder distention are secondary signs sug gestive for cholecystitis. There is however no sonographic Seo's sign at this time. Agree with pre liminary report. Reviewed by: Esdras Solis MD on 11/04/2023 7:59 AM PDT Approved by: Esdras Solis MD on 11/04/2023 7:59 AM PDT Station ID: [id number]
--- NOTE | 2023-11-04 08:04 | CT Report ---
PROCEDURE: Abdomen/Pelvis W INDICATIONS: abd/back pain CONTRAST: Omni 300, 100mls TECHNIQUE: After the administration of intravenous contrast, a CT scan of the abdomen and pelvis was performed. Images were recorded and evaluated at appropriate window settings. Reformats: coronal and sagittal. F or radiation dose reduction, the following was used: automated exposure control, adjustment of mA and /or kV according to patient size. COMPARISON: None FINDINGS: Image quality: Diagnostic Lower chest: Bibasilar atelectasis/scarring. No pleural effusions. Liver: There is a right lobe cyst. Subcentimeter lesions are too small to characterize, usually also cysts. Gallbladder and biliary system: There are gallstones at the neck of the gallbladder. The gallbladder is moderately distended. This is better evaluated on ultrasound. No biliary ductal dilation Pancreas: No ductal dilation Spleen: Nonenlarged Adrenals: No discrete nodules Kidneys: No hydronephrosis. There are areas of renal scarring, particularly at the left lower pole. L eft renal cyst is present. No complicated lesion requiring follow-up identified. Vessels and lymph nodes: The main portal vein is patent. Infrarenal abdominal aortic aneurysm with pa rtial thrombosis measuring a little over 3 cm moderate atherosclerotic disease of the aortoiliac vess els and branch vessels. No pathologic lymph nodes by size criteria Bowel and peritoneum: No evidence of small bowel obstruction or pathologic ascites. The appendix is n ondilated. Body wall: Small fat-containing inguinal hernias. Pelvis: Bladder is unremarkable. Mildly heterogeneous prostate is not well eval on this study. Bones: No acute or suspicious osseous finding. Sacroiliac ankylosis. Degenerative changes. IMPRESSION: Distended gallbladder with cholelithiasis. Gallbladder is better evaluated on ultrasound. No other acute abnormality in the abdomen/pelvis on CT Abdominal aortic aneurysm with partial thrombosis, measuring slightly over 3 cm on this non-arteriogr aphic study. Other findings above. Agree with preliminary report. Reviewed by: Esdras Solis MD on 11/04/2023 8:03 AM PDT Approved by: Esdras Solis MD on 11/04/2023 8:03 AM PDT Station ID: [id number]
[2023-11-04] MEDS: PIPERACILLIN/TAZOBACTAM 3.375 GM in SODIUM CHLORIDE 0.9% MINIBAG 100 ML IV STA (09:31)
--- NOTE | 2023-11-04 11:06 | CONSULTATION NOTE ---
Referring Provider Name of Referring Provider:: Dr. Ivelisse Lacey Consult Date: 11/04/23 Chief Complaint - Chief Complaint Chief Complaint: Acute cholecystitis History of Present Illness - Admitted From Admitted From:: Outpatientpatient in emergency department room 9 - History Obtained From Records Reviewed: Yes History obtained from: Chart, Dr. Lacey, patient Exam Limitations: None - History of Present Illness HPI Comment/Other: This is a very pleasant 78-year-old male that I saw on consultation requested by Dr. Ivelisse Lacey in room 9 at [facility]'s emergency department. The patient had the abrupt onset of severe right upper quadrant pain following the ingestion of homemade Louise stirfry. The pain was described as extremely sharp located in the right upper quadrant penetrating from the back to the front. It was accompanied by profound nausea but no vomiting. The patient tried to make himself vomit thinking that it would help the pain but was unsuccessful. When the pain did not improve he presented to the emergency department. He is currently markedly improved with little to no pain but some tenderness. The patient states that he may have had episodes like this in the past but they were nowhere near as severe. History - Past Medical History Cardiovascular: reports: Hypertension, High cholesterol Respiratory: reports: None Endocrine/Autoimmune: reports: None GI: reports: None : reports: None HEENT: reports: None Psych: reports: None Musculoskeletal: reports: None Derm: reports: None MRSA Hx?: No - Past Surgical History General: reports: Other (Inguinal herniorrhaphy) Cardiovascular: reports: CABG HEENT: reports: Other - POLST Patient has POLST: No Meds/Allgy - Home Medications Home Medications: Ambulatory Orders Medication Instructions Recorded Confirmed Aspirin 0.5 tab PO DAILY 09/30/16 08/26/18 [place]-3/Dha/Epa/Fish Oil [Fish Oil 1 each PO DAILY 09/30/16 08/26/18 1,000 mg Softgel] Potassium Chloride [K-Dur] 20 meq PO DAILY 09/30/16 08/26/18 Rosuvastatin Calcium [Crestor] 10 mg PO DAILY 09/30/16 08/26/18 Clopidogrel [Plavix] 1 tab PO DAILY 08/04/18 08/26/18 Metoprolol Tartrate [Lopressor] 1 tab PO DAILY 08/04/18 08/26/18 Amlodipine Besylate [Norvasc] 10 mg PO 08/26/18 Chlorthalidone 25 mg PO DAILY 08/26/18 08/26/18 Isosorbide Mononitrate ER [Imdur] 30 mg PO DAILY 08/26/18 08/26/18 predniSONE [Deltasone] 40 mg PO DAILY 5 Days tablet 08/26/18 Sennosides/Docusate Sodium 1 each PO QDAC PRN #30 tablet 04/09/22 [Senna-Docusate Sodium Tablet] polyethylene glycoL 3350 [Miralax] 17 gm PO DAILY PRN #30 packet 04/09/22 - Allergies Allergies/Adverse Reactions: Allergies Allergy/AdvReac Type Severity Reaction Status Date / Time hydralazine Allergy Itching Verified 11/04/23 00:38 quinapril [From Accupril] Allergy Itching Verified 11/04/23 00:38 codeine AdvReac Diaphoresis Verified 11/04/23 00:38 Review of Systems - Constitutional Constitutional: denies: Fatigue, Fever, Chills, Malaise, Weakness - Eyes Eyes: denies: Pain - Ears, Nose & Throat Ears, Nose & Throat: denies: Ear pain - Cardiovascular Cariovascular: denies: Irregular heart rate, Palpitations, Chest pain - Gastrointestinal Gastrointestinal: reports: Abdominal pain, Nausea. denies: Change in bowel habits, Rectal bleeding, Black stools, Bloody stools, Vomiting - Genitourinary Genitourinary: denies: Dysuria - Neurological Neurological: denies: General weakness, Focal weakness, Headache, Dizziness - Psychiatric Psychiatric: denies: Depression Exam - Vital Signs Reviewed Vital Signs: Yes Vital Signs: Vital Signs x48h Pulse Resp BP Pulse Ox O2 Flow Rate 11/04/23 10:10 94 1 11/04/23 10:00 79 16 124/94 H 89 L 11/04/23 08:00 76 18 184/94 H 91 L 2 11/04/23 06:00 76 16 200/88 H 97 11/04/23 04:30 71 16 200/87 H 96 2 - Physical Exam General Appearance: positive: No acute distress Eyes Bilateral: positive: No lid inflammation, Conjunctivae nml, No scleral icterus ENT: positive: Dry mucous membranes Neck: positive: Trachea midline Respiratory: positive: Chest non-tender, No respiratory distress, Breath sounds nml Cardiovascular: positive: Regular rate & rhythm, No murmur, No gallop, Other (Well-healed incision) Abdomen: positive: No organomegaly, Nml bowel sounds, No distention. negative: Guarding, Rebound, Hepatomegaly, Splenomegaly Skin: positive: Color nml, No rash, Warm, Dry Extremities: positive: Non-tender, Nml appearance, Other (Good strength throughout). negative: Daniel's sign/cords Neurologic/Psychiatric: positive: Oriented x3, Motor nml, Sensation nml, Mood/affect nml Conclusion/Plan - Lab Results Lab results reviewed: Yes Fish Bones: 11/04/23 00:59 11/04/23 00:59 - Diagnostic Imaging Results Diagnostic Imaging Results: positive: Final report reviewed - Other Other Results/Comments: Laparoscopic cholecystectomy, possible open cholecystectomy, possible intraoper ative cholangiogram, possible common bile duct exploration. The indications, procedure, alternatives including no surgery, possible risks including infection (deep or superficial), bleeding requiring transfusion (with all of its risks), common bile duct injury and were fully explained to the patient and all questions answered. I yasemin pictures to help describe what the gallbladder is and how it works. I also explained the pathophysiology. I explained that following the surgery I did not want him lifting anything over 15 pounds for 6 weeks to allow for optimal healing and to decrease the likelihood that a hernia would occur. All questions were fully answered. Verbal and written consent was obtained. The patient, in preparation for surgery will be nothing by mouth, and is currently receiving Zosyn. Zosyn should be repeated if he does not receive it an hour before his surgery. I asked him to contact me with any surgical questions and his concerns and he stated that he would. I asked him to let me know if there is any way we can make his say at [facility] more comfortable and he stated that he would let me know. 45 minutes of [id number] time spent with the patient, the majority of which was spent in discussion, coordination of care, and completion of the requisite paperwork
[2023-11-04] MEDS ORDERED: BUPIVACAINE 0.5%-EPI 1:200000 PF 30 ML VIAL ONE (11:26)
[2023-11-04] MEDS ORDERED: fentaNYL 100 MCG/2 ML VIAL ONE (11:36)
[2023-11-04] MEDS ORDERED: PROPOFOL 200 MG/20 ML VIAL IVP ONE (11:36)
[2023-11-04] MEDS ORDERED: ROCURONIUM 50 MG/5 ML VIAL ONE ×2 (11:36→12:48)
[2023-11-04] MEDS ORDERED: MIDAZOLAM 2 MG/2 ML VIAL ONE (11:36)
[2023-11-04] MEDS ORDERED: ONDANSETRON 4 MG/2 ML VIAL IVP PRN ×2 (11:50→14:15)
[2023-11-04] MEDS ORDERED: MORPHINE 2 MG/ML CARPUJECT IVP PRN (11:50)
[2023-11-04] MEDS ORDERED: fentaNYL 100 MCG/2 ML VIAL IVP PRN (11:50)
[2023-11-04] MEDS ORDERED: ATROPINE ABBOJECT 1 MG/10 ML SYRINGE IVP PRN (11:50)
[2023-11-04] MEDS ORDERED: HYDROmorphone 0.5 MG/0.5 ML SYRINGE IVP PRN ×2 (11:50→14:15)
[2023-11-04] MEDS ORDERED: NALOXONE 0.4 MG/ML VIAL IVP PRN (11:50)
--- NOTE | 2023-11-04 11:50 | ANESTHESIA ---
Pre-Anesthesia VS, & Labs - Diagnosis acute cholecystitis - Procedure lap damian Vital Signs: Temp Pulse Resp BP Pulse Ox O2 Flow Rate 36.3 C L 79 16 124/94 H 94 1 11/04/23 00:36 11/04/23 10:00 11/04/23 10:00 11/04/23 10:00 11/04/23 10:10 11/04/23 10:10 Height: 6 ft Weight (kg): 98.5 kg Body Mass Index: 29.4 BMI Classification: Overweight - NPO >8 hours - Lab Results Current Lab Results: Laboratory Tests 11/04/23 00:59: Sodium 142, Potassium 3.7, Chloride 108, Carbon Dioxide 24, Anion Gap 10.0, BUN 36 H, Creatinine 1.4 H, Estimated GFR (MDRD) 49 L, Glucose 120 H, Calcium 9.5, Total Bilirubin 0.6, AST 18, ALT 14, Alkaline Phosphatase 66, Troponin I High Sens 13.3, Total Protein 7.0, Albumin 4.3, Globulin 2.7, Albumin/Globulin Ratio 1.6 11/04/23 00:59: WBC 13.5 H, RBC 4.50 L, Hgb 13.6 L, Hct 42.5, MCV 94.4 H, MCH 30.2, MCHC 32.0, RDW 12.4, Plt Count 235, MPV 9.8, Neut # (Auto) 9.8 H, Lymph # (Auto) 2.3, [place] # (Auto) 1.1 H, Eos # (Auto) 0.1, Baso # (Auto) 0.0, Absolute N ucleated RBC 0.00, Nucleated RBC % 0.0 Lab results reviewed: Yes Fish Bones: 11/04/23 00:59 11/04/23 00:59 Home Medications and Allergies Home Medications: Ambulatory Orders Losartan [Cozaar] 1 tab PO DAILY 11/04/23 predniSONE [Prednisone] 7.5 mg PO DAILY 11/04/23 Aspirin 0.5 tab PO DAILY 09/30/16 Rosuvastatin Calcium [Crestor] 10 mg PO DAILY 09/30/16 Metoprolol Tartrate [Lopressor] 25 mg PO BID 08/04/18 Amlodipine Besylate [Norvasc] 5 mg PO DAILY 08/26/18 Losartan [Cozaar] 1 tab PO DAILY 11/04/23 predniSONE [Prednisone] 7.5 mg PO DAILY 11/04/23 Allergies/Adverse Reactions: Allergies Allergy/AdvReac Type Severity Reaction Status Date / Time hydralazine Allergy Itching Verified 11/04/23 00:38 quinapril [From Accupril] Allergy Itching Verified 11/04/23 00:38 codeine AdvReac Diaphoresis Verified 11/04/23 00:38 Anes History & Medical History - Anesthetic History Anesthesia Complications: reports: No previous complications - Medical History Cardiovascular: reports: Hypertension, High cholesterol, Coronary artery disease Pulmonary: reports: Other (resent upper respiratory virus.) Gastrointestinal: reports: None Urinary: reports: None Neuro: reports: None Musculoskeletal: reports: None Endocrine/Autoimmune: reports: Other (polymyalgia rheumatica) Skin: reports: None Smoking Status: Never smoker Psychosocial: reports: Alcohol (1-2 shots of whiskey per day) History of Cancer?: No - Surgical History General: reports: Other (Inguinal herniorrhaphy) Eyes Ears Nose Throat (EENT): reports: Other (sinuse surgery x2) Cardiothoracic: reports: CABG Exam General: Alert, Oriented x3, Cooperative, No acute distress Dental: WNL Mouth Openin Fingerbreadth Neck Mobility: Normal Mallampati classification: II Thyromental Distance: 4-6 cm Respiratory: Lungs clear, Normal breath sounds, No respiratory distress, No accessory muscle use Mental/Cognitive Status: Alert/Oriented X3, Normal for patient Plan Anesthesia Type: General Consent for Procedure(s) Verified and Reviewed: Yes Code Status: Attempt Resuscitation ASA classification: 3-Severe systemic disease Is this case an emergency?: Yes
[2023-11-04] MEDS ORDERED: LACTATED RINGERS 1,000 ML IV SCH (12:00)
[2023-11-04] MEDS ORDERED: DEXAMETHASONE 4 MG/ML VIAL ONE (12:28)
[2023-11-04] MEDS ORDERED: ONDANSETRON 4 MG/2 ML VIAL ONE (12:28)
[2023-11-04] MEDS: BUPIVACAINE 0.5%-EPI 1:200000 PF 30 ML VIAL SUBQ ONE (12:34)
[2023-11-04] MEDS ORDERED: SUGAMMADEX 200 MG/2 ML VIAL IVP ONE (13:33)
[2023-11-04] MEDS ORDERED: HYDROmorphone 1 MG/ML CARPUJECT ONE (13:39)
--- NOTE | 2023-11-04 13:55 | OPERATIVE REPORT ---
Operative Report - General Procedure Date: 11/04/23 Planned Procedure: Laparoscopic cholecystectomy, possible open cholecystectomy, possible intraoperative cholangiogram, possible common bile duct exploration Pre-Op Diagnosis: Acute cholecystitissymptomatic cholelithiasis Procedure Performed: Laparoscopic cholecystectomy, umbilical herniorrhaphy Post Op Diagnosis: Acute cholecystitis with mild necrosis, small umbilical hernia - Procedure Note Primary Surgeon: Genaro Gottlieb MD Anesthesia Provider: Farhad Whitt CRNA Anesthesia Technique: General ET tube, Local (30 mL 1/2% Marcaine with epinephrine) IV Fluids (mL): 1,100 Estimated Blood Loss (mL): 20 Drain/Tube Type: Other (None) Indications: Postprandial right upper quadrant pain associated with thickened gallbladder and gallstone in the neck of the gallbladder on radiographic studies Findings: Thickened gallbladder with significant adhesions and edema as well as some areas of necrosis Complications: None. - Other Other Information/Narrative: After verbal and written informed consent was obtained detailing the operation, the alternatives to the operation including no operation, risks of infection, bleeding requiring transfusion with its risks, nerve injury, and and after I met with the patient confirming the surgery, the patient was brought to the operative suite and placed supine on the operating table. Great care was taken to avoid pressure points to prevent pressure necrosis or nerve injury. Monitoring devices were applied along with TEDs and pneumatic compressive stockings (to prevent DVT). The patient received preoperative antibiotics for surgical prophylaxis. Farhad Whitt CRNA sedated and anesthetized the patient for the entire procedure. The patient was prepped and draped in usual sterile manner. A "time in" then confirmed that the patient was identified with 3 identifiers (name, date, and medical record number), the history and physical was in the chart, the signed consent confirming the procedure was in the chart, the patient was in the correct position, the aforementioned prophylactic measures were in place were given, we had the correct personnel and equipment to complete the procedure and that anesthesia, and the surgical team was given an opportunity to express any concerns. With the agreement of everyone in the room, we proceeded with the operation. The initial incision was at the umbilicus and dissection to the linea alba was completed using blunt dissection. A small umbilical hernia was noted (1.5 cm in diameter) and this was cleared of subcutaneous tissues so that the fascia and the fascial defect were clearly seen. The peritoneum was grasped and incised gaining entry into the abdomen. In this location, a 12 mm blunt tipped, balloon tipped port was placed and the balloon was inflated to keep the port in position. The abdominal cavity was insufflated with carbon dioxide to a steady- state pressure of 15 mmHg. 3 additional 5 mm ports were placed in standard locations for laparoscopic cholecystectomy (subxiphoid and 2 right subcostal) under direct vision of the 30 degree laparoscope and without incident. The patient was then placed in reverse Trendelenburg position and was rotated slightly to their left. The omentum was densely adherent to the gallbladder and upon traction countertraction the omentum was removed from the gallbladder itself. The gallbladder was noted to be very thick walled and distended. There would be no way for me to grasp the gallbladder if it was not decompressed. Subsequently, I decompressed the gallbladder with a laparoscopic needle and 80 mL of green-brown bile were removed thus making the gallbladder much easier to grasp. The gallbladder fundus was grasped with an atraumatic grasper. Multiple adhesions had to be taken down by blunt and sharp dissection along with electrocautery. Eventually, I identified the infundibulum and this was then grasped and retracted superiorly and laterally. Dissection was then begun at the angle of Calot. The cystic duct and (slightly medially and posteriorly), cystic artery were clearly identified. The critical view was obtained and a photograph taken. 2 clips proximally and one clip distally were used to control both the cystic duct and cystic artery. The clips were carefully placed to avoid occluding the juncture with the common bile duct. Both the cystic duct and then the cystic artery were then transected with laparoscopic milo. The gallbladder was then removed from its fossa in a retrograde manner using electrocautery. With the 30 degree 5 mm scope in the subxiphoid position, the gallbladder was placed in an EndoCatch bag to be extracted through the 12 mm port site. I irrigated the r ight upper quadrant with liter of warm sterile saline and the area was aspirated dry. I inspected the gallbladder fossa and there was no bleeding or bile leak. Clips on the cystic duct and cystic artery appeared to be secure. I briefly visually explored the abdomen. There was no other evidence of overt pathology. I injected the port sites at the peritoneal, fascial, and skin levels under dire ct vision with 0.5% Marcaine. All ports and the Endo Catch containing the gallbladder were removed. Following gallbladder removal, the remaining carbon dioxide was expelled from the abdomen. Ultimately, photographs were taken of the gallbladder upon entry into the abdomen, the critical view, the view of the clips intact on the cystic duct and cystic artery, and the liver bed where the gallbladder had been. The fascia the umbilicus was approximated using 2 [id number] 0 Vicryl sutures thus repairing the umbilical hernia. The skin at each port site was approximated using a subcuticular 4-0 Monocryl. Dermabond was then placed over the wounds. At this point a "timeout" was performed that confirmed that all counts were correct, the procedure that was performed, the blood loss, the IV fluids administered, the patient's condition and any concerns of the operating team had. Having tolerated the procedure well, the patient was extubated and taken to recovery room in good and stable condition. The plan is for outpatient discharge when the patient is adequately recovered. CPT 85412 laparoscopic cholecystectomy CPT 42794 umbilical hernia (less than 3 cm) This document was created in part using voice recognition technology. Because of the inherent limitations of the system, occasional same sounding word substitutions and grammatical errors do occur and persist despite proofreading. Please read this document for context.
[2023-11-04] MEDS: LACTATED RINGERS 1,000 ML IV ONE (14:00)
[2023-11-04] MEDS ORDERED: ACETAMINOPHEN 1,000 MG/100 ML 1,000 MG/100 ML BAG IV PRN (14:01)
[2023-11-04] MEDS ORDERED: HYDROcod/ACETAM 5/325 MG TABLET PO PRN (14:15)
[2023-11-04 15:40] VITALS: BP 146/66; O2SAT 92
--- NOTE | 2023-11-04 20:41 | ED Physician Documentation ---
ED Addendum - Addendum Addendum: 11/04/23 Patient care assumed at shift change from Dr. Lacey. Pt boarding in ED awaiting SDS for cholecystitis. Pt given dose of IV Zosyn. U/S confirms diagnosis. Taken to OR under the care of Dr. Gottlieb. Departure - Departure Disposition: ED Transfer to [facility] Clinical Impression: Cholecystitis Condition: Serious Discharge Date/Time: 11/04/23 12:02
--- NOTE | 2023-11-05 07:37 | ANESTHESIA POST OP EVALUATION ---
Anesthesia Post Eval - Post Anesthesia Eval Vitals: Last Vital Signs Temp 36.7 C 11/04/23 15:17 Pulse 59 L 11/04/23 15:35 Resp 16 11/04/23 15:35 BP 146/66 H 11/04/23 15:35 Pulse Ox 92 11/04/23 15:35 O2 Flow Rate 1 11/04/23 10:10 CV Function Including HR & BP: Stable Pain Control: Satisfactory Nausea & Vomiting: Negative Mental Status: Baseline Respiratory Status: Airway Patent Hydration Status: Satisfactory Anesthesia Complications: None
== END 2023-11-04 10:57 | disposition home or self-care (01) ==
LOC: ED 00:20 → SDS 10:56
PROVIDERS: ATTEND Surgery
PROC: 0FT44ZZ Resection of Gallbladder, Percutaneous Endoscopic Approach (ICD-10-PCS; principal; 2023-11-04 13:00)
DX: K80.12 Calculus of gallbladder with acute and chronic cholecystitis without obstruction (principal); I10 Essential (primary) hypertension; Z95.1 Presence of aortocoronary bypass graft; K42.9 Umbilical hernia without obstruction or gangrene
CPT/HCPCS: 36415; 47562; 74177; 76705; 80053; 84484; 85025; 87635; 96365; 96366; 96375; 99284; 99285; J1170; J7120; Q9967

== ENCOUNTER 2024-02-25 16:58 | Emergency (ER) | payer MEDICARE ==
--- NOTE | 2024-02-25 20:13 | ED Physician Documentation ---
History of Present Illness - Stated complaint Stated Complaint: RT LEG PX - Chief complaint Chief Complaint: Fever - History obtained from History obtained from: Patient - History of Present Illness Timing: Today Pain level max: 2 Pain level now: 2 - Additonal information Additional information: Patient is a 78-year-old male who presents to the emergency department complaining of swelling and redness to the right lower extremity. He states he does not recall any specific injury but does hit himself with crab pots quite often. He states he has had rhinorrhea, cough and congestion as well. The patient denies any history of diabetes. Is not on any antibiotics. States his leg has been swollen for several days with no significant change. Has not had any fevers at home. Review of Systems Constitutional: denies: Fever, Chills Nose: reports: Rhinorrhea / runny nose, Congestion Respiratory: reports: Cough GI: denies: Abdominal Pain, Vomiting, Diarrhea : denies: Dysuria, Frequency, Hesitancy Musculoskeletal: denies: Neck pain, Back pain Neurologic: denies: Headache PD PAST MEDICAL HISTORY - Past Medical History Past Medical History: Yes Cardiovascular: Hypertension, High cholesterol Respiratory: None Neuro: None Endocrine/Autoimmune: None GI: None : None HEENT: None Psych: None Musculoskeletal: None Derm: None - Past Surgical History Past Surgical History: Yes General: Other Cardiovascular: CABG HEENT: Other - Present Medications Home Medications: Ambulatory Orders Medication Instructions Recorded Confirmed Aspirin 0.5 tab PO DAILY 09/30/16 11/04/23 Rosuvastatin Calcium [Crestor] 10 mg PO DAILY 09/30/16 11/04/23 Metoprolol Tartrate [Lopressor] 25 mg PO BID 08/04/18 11/04/23 Amlodipine Besylate [Norvasc] 5 mg PO DAILY 08/26/18 11/04/23 polyethylene glycoL 3350 [Miralax] 17 gm PO DAILY PRN #30 packet 04/09/22 11/04/23 Docusate Sodium 250Mg Capsule 250 mg PO DAILY #20 cap 11/04/23 [Colace 250Mg Capsule] HYDROcod/ACETAM 5/325 [[place] 5/325] 1 each PO Q4H PRN #8 tablet 11/04/23 Losartan [Cozaar] 1 tab PO DAILY 11/04/23 11/04/23 predniSONE [Prednisone] 7.5 mg PO DAILY 11/04/23 11/04/23 Doxycycline [Vibramycin] 100 mg PO BID #14 tablet 02/25/24 cephALEXin [Keflex] 500 mg PO Q6H #28 cap 02/25/24 - Allergies Allergies/Adverse Reactions: Allergies Allergy/AdvReac Type Severity Reaction Status Date / Time hydralazine Allergy Itching Verified 02/25/24 17:24 quinapril [From Accupril] Allergy Itching Verified 02/25/24 17:24 codeine AdvReac Diaphoresis Verified 02/25/24 17:24 - Social History Does the pt smoke?: No Smoking Status: Never smoker Does the pt drink ETOH?: Yes Does the pt have substance abuse?: No - Immunizations Immunizations are current?: Yes - POLST Patient has POLST: No PD ED PE NORMAL - Vitals Vital signs reviewed: Yes - General General: Alert and oriented X 3, No acute distress - HEENT HEENT: Moist mucous membranes - Neck Neck: Supple, no meningeal sign - Cardiac Cardiac: RRR - Respiratory Respiratory: No respiratory distress, Clear bilaterally - Abdomen Abdomen: Soft, Non tender, Non distended - Derm Derm: Warm and dry - Extremities Extremities: Other (R LE - Mild swelling and erythema to the anterior aspect of the right lower extremity. No drainage. No fluctuance. No crepitus. Extends from the mid tibia down to the ankle. NVI) - Neuro Neuro: Alert and oriented X 3 - Psych Psych: Normal mood, Normal affect Results - Vitals Vitals: Vital Signs - 24 hr 02/25/24 02/25/24 02/25/24 17:20 19:57 21:00 Temperature 39.7 C H 36.9 C Heart Rate 63 74 69 Respiratory 20 16 16 Rate Blood Pressure 180/77 H 147/67 H 132/67 H O2 Saturation 97 96 94 Oxygen O2 Source Room air - Labs Labs: Laboratory Tests 02/25/24 20:11 Nasal Adenovirus (PCR) NOT DETECTED Nasal B. parapertussis DNA (PCR) NOT DETECTED Nasal Coronavir 229E PCR NOT DETECTED Nasal Coronavir HKU1 PCR NOT DETECTED Nasal Coronavir NL63 PCR NOT DETECTED Nasal Coronavir OC43 PCR NOT DETECTED Nasal Enterovir/Rhinovir PCR NOT DETECTED Nasal Influenza B PCR NOT DETECTED Nasal Influenza A PCR NOT DETECTED Nasal Parainfluen 1 PCR NOT DETECTED Nasal Parainfluen 2 PCR NOT DETECTED Nasal Parainfluen 3 PCR NOT DETECTED Nasal Parainfluen 4 PCR NOT DETECTED Nasal RSV (PCR) NOT DETECTED Nasal B.pertussis DNA PCR NOT DETECTED Nasal C.pneumoniae (PCR) NOT DETECTED Shawn Human Metapneumo PCR NOT DETECTED Nasal M.pneumoniae (PCR) NOT DETECTED Nasal SARS-CoV-2 (PCR) NOT DETECTED - Rads (name of study) cxr Relevant Findings:: Final report received, See rad report PD Medical Decision Making - ED course Complexity details: reviewed results, re-evaluated patient, considered differential, d/w patient ED course: Chest x-ray shows possible mild pneumonia in the right lower lobe. Patient is placed on Keflex and doxycycline for the cellulitis of the right lower extremity. Unclear if the 39.7 temperature recorded was real in triage or was supposed to be 37.9. His temperature was rechecked x 2 in the emergency department and found to be 36.8 and 37. There was no treatment given for fever in between the initial triage vital sign and the rechecks in the emergency department. He is very well-appearing, nontoxic. No crepitus. No evidence of subcutaneous emphysema or necrotizing infection. Respiratory PCR is negative. We will have the patient follow-up closely with his PCP for wound checks. There is a skin tear to the right lateral leg, possible source of infection. No drainage other than serous fluid. Patient counseled regarding signs and symptoms for which I believe and urgent re-evaluation would be necessary. Patient with good understanding of and agreement to plan and is comfortable going home at this time This document was made in part using voice recognition software. While efforts are made to proofread this document, sound alike and grammatical errors may occur. Departure - Departure Disposition: 01 Home, Self Care Clinical Impression: Cellulitis Qualifiers: Site of cellulitis: extremity Site of cellulitis of extremity: lower extremity Laterality: right Qualified Code(s): L03.115 - Cellulitis of right lower limb Condition: Good Instructions: ED Infec Skin Cellulitis Follow-Up: Genaro Michael MD [Primary Care Provider] - Prescriptions: cephALEXin [Keflex] 500 mg PO Q6H #28 cap Doxycycline [Vibramycin] 100 mg PO BID #14 tablet Comments: Your prescriptions were sent to [facility] in [place]. Please take all antibiotics until gone. Please return if you worsen. You should start to notice a decrease in redness and swelling within about 24 hours after starting the antibiotics. Please return if you worsen including fevers, pain or other new or worrisome symptoms. Forms: PCP List Discharge Date/Time: 02/25/24 21:47
[2024-02-25] MEDS: cephALEXin 250 MG CAPSULE PO STA (20:42)
[2024-02-25] MEDS: DOXYCYCLINE 100 MG TABLET PO STA (20:42)
[2024-02-25 21:06] LABS: B. PARAPERTUSSIS- RESP PCR PAN NOT DETECTED; B. PERTUSSIS- RESP PCR PANEL NOT DETECTED; C. PNEUMONIAE- RESP PCR PANEL NOT DETECTED; CORONAVIRUS 229E-RESP PCR NOT DETECTED; CORONAVIRUS HKU1-RESP PCR NOT DETECTED; CORONAVIRUS NL63-RESP PCR NOT DETECTED; CORONAVIRUS OC43-RESP PCR NOT DETECTED; HUMAN METAPNEUMOVIRUS NOT DETECTED; INFLUENZA A- RESP PCR PANEL NOT DETECTED; INFLUENZA B - RESP PCR PANEL NOT DETECTED; M. PNEUMONIAE- RESP PCR PANEL NOT DETECTED; PARAINFLUENZA VIRUS 1 NOT DETECTED; PARAINFLUENZA VIRUS 2 NOT DETECTED; PARAINFLUENZA VIRUS 3 NOT DETECTED; PARAINFLUENZA VIRUS 4 NOT DETECTED; RHINOVIRUS/ENTEROVIRUS NOT DETECTED; RSV- RESP PCR PANEL NOT DETECTED; SARS-CoV-2 -RESP PCR PANEL NOT DETECTED
[2024-02-25 21:15] VITALS: BP 132/67; O2SAT 94
--- NOTE | 2024-02-25 21:35 | XRAY Report ---
PROCEDURE: Chest 1V INDICATIONS: cough TECHNIQUE: One view of the chest was acquired. COMPARISON: 02/10/2020 FINDINGS: Surgical changes and devices: Multiple surgical clips project at and to the left of the mediastinum. Lungs and pleura: Minor wispy bilateral lung base opacities. Remainder of the lung casarez are clear. No significant effusion or pneumothorax. Mediastinum: Mediastinal contours appear normal. Heart size is normal. Bones and chest wall: No suspicious bony lesions. Overlying soft tissues appear unremarkable. IMPRESSION: Probable bibasilar wispy atelectatic changes versus mild bronchitis. Reviewed by: Gris Bennett MD on 02/25/2024 9:34 PM PDT Approved by: Gris Bennett MD on 02/25/2024 9:34 PM PDT Station ID: [id number]
== END 2024-02-25 21:47 | disposition home or self-care (01) ==
LOC: ED 16:58
DX: L03.115 Cellulitis of right lower limb (principal); S81.811A Laceration without foreign body, right lower leg, initial encounter; X58.XXXA Exposure to other specified factors, initial encounter
CPT/HCPCS: 71045; 87633; 99283; 99284; A9270